=== PATIENT | male | born 1970 | race Caucasian/White ===

== ENCOUNTER 2019-07-31 19:07 | Emergency (ER) | payer MEDICAID ==
[~2019-07-31] VITALS: Ht 172.7 cm; Wt 113.4 kg
== END 2019-07-31 19:10 ==
LOC: ER 19:07
DX: F10.129 Alcohol abuse with intoxication, unspecified (principal)
CPT/HCPCS: 99282

== ENCOUNTER 2020-07-31 19:57 | Emergency (ER) | payer OTHER ==
[~2020-07-31] VITALS: Ht 177.8 cm; Wt 107.0 kg
[2020-07-31] MEDS ORDERED: EPLE25 PO (21:49)
[2020-07-31] MEDS ORDERED: FLUT.05NI (21:49)
[2020-07-31] MEDS ORDERED: FISH OIL 1,2001 EAC1 PO (21:52)
[2020-07-31] MEDS ORDERED: TUMS500 MG PO (22:00)
[2020-08-01 08:42] LABS: BASOPHILS ABSOLUTE AUTO 0.05 K/mm3 (0.00-0.23); BASOPHILS PERCENT AUTO 1 % (0-2); EOSINOPHILS ABSOLUTE AUTO 0.11 K/mm3 (0.00-0.68); EOSINOPHILS PERCENT AUTO 1 % (0-6); Hematocrit 42.9 % (37.0-53.0); Hemoglobin 13.5 g/dL (13.5-17.5); IMMATURE GRAN ABSOLUTE AUTO 0.17 K/mm3 (0.00-0.10); IMMATURE GRAN PERCENT AUTO 2 % (0-1); LYMPHOCYTES ABSOLUTE AUTO 1.57 K/mm3 (0.84-5.20); LYMPHOCYTES PERCENT AUTO 19 % (21-46); MONOCYTES ABSOLUTE AUTO 0.64 K/mm3 (0.16-1.47); MONOCYTES PERCENT AUTO 8 % (4-13); Mean Corpuscular HGB 26.9 pg (26.0-34.0); Mean Corpuscular HGB Conc 31.5 g/dL (31.5-36.5); Mean Corpuscular Volume 86 fL (80-100); Mean Platelet Volume 9.4 fL (9.1-12.4); NEUTROPHILS ABSOLUTE AUTO 5.77 K/mm3 (1.96-9.15); NEUTROPHILS PERCENT AUTO 70 % (41-73); Platelet Count 264 K/mm3 (150-400); RDW Coefficient Variation 15.1 % (11.7-14.2); RDW Standard Deviation 47.3 fL (35.1-46.3); Red Blood Cell Count 5.02 M/mm3 (4.30-5.90); White Blood Cell Count 8.31 K/mm3 (4.00-11.30)
[2020-08-01 09:02] LABS: Alanine Aminotransfer (ALT/SGP 20 U/L (12-78); Albumin, Blood 2.8 g/dL (3.4-5.0); Albumin/Globulin Ratio 0.6 (0.8-1.8); Alk Phos 133 U/L (50-136); Anion Gap 7 mmol/L (6-16); Aspartate Aminotrans (AST/SGOT 26 U/L (12-37); Bilirubin, Total 0.3 mg/dL (0.1-1.0); Blood Urea Nitrogen 9 mg/dL (8-24); Bun/Creatinine Ratio 12.1 (12.0-20.0); CO2, Blood 26 mmol/L (21-32); Calcium, Blood 8.6 mg/dL (8.5-10.1); Chloride, Blood 105 mmol/L (98-108); Creatinine, Blood 0.75 mg/dL (0.60-1.20); Globulin, Blood 4.6 g/dL (2.2-4.0); Glomerular Filtration Rate >60 (60-); Glucose, Blood 147 mg/dL (70-99); Potassium, Blood 4.1 mmol/L (3.5-5.5); Sodium, Blood 138 mmol/L (136-145); Total Protein, Blood 7.4 g/dL (6.4-8.2)
[2020-08-01 11:03] LABS: International Normalized Ratio 0.98; Prothrombin Time Results 10.5 Sec (9.7-11.5)
[2020-08-01] MEDS ORDERED: HYDACE10B PO (13:35)
[2020-08-01] MEDS ORDERED: DOC250 PO (13:35)
[2020-08-01] MEDS ORDERED: XARELTO15 M1 PO (13:35)
== END 2020-08-01 15:13 | disposition home or self-care (01) ==
LOC: ER 19:57
PROVIDERS: Emergency Medicine
DX: I82.220 Acute embolism and thrombosis of inferior vena cava (principal); K66.9 Disorder of peritoneum, unspecified
CPT/HCPCS: 80053; 85025; 85610; 85730; C9113; J1644; J2270; J2405

== ENCOUNTER 2020-09-14 07:51 | Inpatient (IN) | payer OTHER ==
[~2020-09-14] VITALS: Ht 177.8 cm; Wt 107.0 kg
[~2020-09-14 07:51] MED LIST: AMOCLA875 PO; DOC250 PO; EPLE25 PO; FISH OIL 1,2001 EAC1 PO; FLUT.05NI; HYDACE10B PO; TUMS500 MG PO; XARELTO15 M1 PO
[2020-09-14 09:10] LABS: Hematocrit 35.3 % (37.0-53.0); Hemoglobin 11.2 g/dL (13.5-17.5); Mean Corpuscular HGB 26.3 pg (26.0-34.0); Mean Corpuscular HGB Conc 31.7 g/dL (31.5-36.5); Mean Corpuscular Volume 83 fL (80-100); Mean Platelet Volume 9.7 fL (9.1-12.4); Platelet Count 269 K/mm3 (150-400); RDW Coefficient Variation 18.1 % (11.7-14.2); RDW Standard Deviation 53.5 fL (35.1-46.3); Red Blood Cell Count 4.26 M/mm3 (4.30-5.90); White Blood Cell Count 8.89 K/mm3 (4.00-11.30)
[2020-09-14] MEDS ORDERED: AMOCLA875 PO (09:13)
[2020-09-14] MEDS ORDERED: DOC250 (09:13)
[2020-09-14] MEDS ORDERED: MORP15ER PO ×2 (09:13→14:31)
[2020-09-14] MEDS ORDERED: SENNA LAXATIVE8.6 MG (09:13)
[2020-09-14] MEDS ORDERED: XARELTO20 MG PO (09:14)
[2020-09-14] MEDS ORDERED: ZYRTEC10 M2 PO ×2 (09:14→14:49)
[2020-09-14] MEDS ORDERED: MORPHINE SULFAT60 M1 PO (09:14)
[2020-09-14] MEDS ORDERED: LIDO700A20 TOP (09:15)
[2020-09-14] MEDS ORDERED: GABA400 PO ×2 (09:15→14:59)
[2020-09-14] MEDS ORDERED: HYDMOR2 PO ×2 (09:15→14:46)
[2020-09-14] MEDS ORDERED: NICO21TP (09:15)
[2020-09-14] MEDS ORDERED: FLONASE ALLERG9.9 ML (09:16)
[2020-09-14] MEDS ORDERED: EPLE25 PO (09:16)
[2020-09-14] MEDS ORDERED: ONDA4 (09:16)
[2020-09-14 09:26] LABS: Alanine Aminotransfer (ALT/SGP 13 U/L (12-78); Albumin, Blood 2.9 g/dL (3.4-5.0); Albumin/Globulin Ratio 0.8 (0.8-1.8); Alk Phos 74 U/L (50-136); Anion Gap 5 mmol/L (6-16); Aspartate Aminotrans (AST/SGOT 10 U/L (12-37); Bilirubin, Total 0.5 mg/dL (0.1-1.0); Blood Urea Nitrogen 19 mg/dL (8-24); Bun/Creatinine Ratio 24.7 (12.0-20.0); CO2, Blood 33 mmol/L (21-32); Calcium, Blood 8.2 mg/dL (8.5-10.1); Chloride, Blood 98 mmol/L (98-108); Creatinine, Blood 0.77 mg/dL (0.60-1.20); Globulin, Blood 3.6 g/dL (2.2-4.0); Glomerular Filtration Rate >60 (60-); Glucose, Blood 106 mg/dL (70-99); Potassium, Blood 3.5 mmol/L (3.5-5.5); Sodium, Blood 136 mmol/L (136-145); Total Protein, Blood 6.5 g/dL (6.4-8.2)
[2020-09-14 09:45] LABS: BASOPHILS ABSOLUTE MAN 0.08 K/mm3 (0.00-0.23); BASOPHILS PERCENT MAN 1 % (0-2); EOSINOPHILS PERCENT MAN 0 % (0-6); LYMPHOCYTES % ATYPICAL MANUAL 2 % (0-0); LYMPHOCYTES ABSOLUTE MAN 2.04 K/mm3 (0.84-5.20); LYMPHOCYTES PERCENT MAN 21 % (21-46); MONOCYTES ABSOLUTE MAN 0.17 K/mm3 (0.16-1.47); MONOCYTES PERCENT MAN 2 % (4-13); NEUTROPHILS ABSOLUTE MAN 6.57 K/mm3 (1.96-9.15); SEG NEUTROPHILS PERCENT MAN 74 % (41-73); TOTAL CELLS COUNTED 100
[2020-09-14] MEDS ORDERED: MORP60ER PO (14:30)
[2020-09-14] MEDS ORDERED: DOCUZEN 8.6-501 EACH PO (14:49)
[2020-09-14] MEDS ORDERED: MIRALAX17 GM PO (14:50)
[2020-09-14] MEDS ORDERED: BISA10S PO (14:50)
[2020-09-14] MEDS ORDERED: NARCAN4 M1 (14:50)
[2020-09-14] MEDS ORDERED: NICO21TP TOP (14:51)
[2020-09-14] MEDS ORDERED: NICO2 PO (14:51)
[2020-09-14] MEDS ORDERED: MINERAL OIL135 M1 PR (14:51)
[2020-09-14] MEDS ORDERED: MAGCIT300 PO (14:51)
[2020-09-14] MEDS ORDERED: ZOFRAN8 MG PO (14:52)
--- NOTE | 2020-09-14 17:28 | NUR ---
PT IS A 50/M, INDEPENDENT IN THE ROOM. ON ROOM AIR; NO TELE. ALERT AND ORIENTED AND CAME HERE FOR L PHARANGEAL ABSCESS. DR HOOD WHO IS THE ENT ER.DR DRAINED 4ML OF ABSCESS; AND FELT BETTER. PT PMH IS TESTICULAR CANCER; HE HAS SCHEDULED CHEMO FOR TOMORROW BY DR IVY. PT TAKING SEVERAL PAIN MEDS RELATED TO CANCER. BED IS IN THE LOWEST POSITION AND CALL LIGHTS WITHIN REACH.
--- NOTE | 2020-09-14 20:16 | NUR ---
CALL TO HOSPITALIST DR. HYMAN. PT HS MS CONTIN D/C'D WITHOUT EXPLAINATION. PT TAKES THIS DOSE [id number] AT HOME FOR CHRONIC SEVERE PAIN RELATED TO CANCER. DOSE ADDED BACK ONTO PT MED REGIMEN.
--- NOTE | 2020-09-15 04:25 | NUR ---
SHIFT SUMMARY: VSS. AFEB. AAOX4. ABLE TO COMMUNICATE NEEDS. DILAUDID X1 FOR BREAKTHROUGH PAIN TONIGHT. PT STATES THROAT IS ONLY SOMEWHAT SORE, FEELS MUCH BETTER SINCE I & D ON 09/14. PAIN IS IN PT'S "USUAL" LOCATION WHICH IS ALL OVER BODY AND SPECIFICALLY LOWER BACK. APPEARS TO BE SLEEPING WELL THROUGH MUCH OF THE NIGHT. IV ABT INFUSED PER ORDERS. PT PLANS TO HAVE CHEMO PER ROUTINE SCHEDULE TODAY. NO ACUTE CHANGES OVERNIGHT. WILL CONT TO MONITOR.
[2020-09-15 05:16] LABS: BASOPHILS ABSOLUTE AUTO 0.04 K/mm3 (0.00-0.23); BASOPHILS PERCENT AUTO 0 % (0-2); EOSINOPHILS ABSOLUTE AUTO 0.01 K/mm3 (0.00-0.68); EOSINOPHILS PERCENT AUTO 0 % (0-6); Hematocrit 38.2 % (37.0-53.0); Hemoglobin 12.2 g/dL (13.5-17.5); IMMATURE GRAN PERCENT AUTO 2 % (0-1); LYMPHOCYTES ABSOLUTE AUTO 1.23 K/mm3 (0.84-5.20); LYMPHOCYTES PERCENT AUTO 10 % (21-46); MONOCYTES ABSOLUTE AUTO 0.08 K/mm3 (0.16-1.47); MONOCYTES PERCENT AUTO 1 % (4-13); Mean Corpuscular HGB 26.2 pg (26.0-34.0); Mean Corpuscular HGB Conc 31.9 g/dL (31.5-36.5); Mean Corpuscular Volume 82 fL (80-100); Mean Platelet Volume 9.6 fL (9.1-12.4); NEUTROPHILS ABSOLUTE AUTO 10.81 K/mm3 (1.96-9.15); NEUTROPHILS PERCENT AUTO 88 % (41-73); Platelet Count 291 K/mm3 (150-400); RDW Coefficient Variation 18.2 % (11.7-14.2); RDW Standard Deviation 53.2 fL (35.1-46.3); Red Blood Cell Count 4.66 M/mm3 (4.30-5.90); White Blood Cell Count 12.37 K/mm3 (4.00-11.30)
[2020-09-15 05:33] LABS: Alanine Aminotransfer (ALT/SGP 13 U/L (12-78); Albumin, Blood 3.1 g/dL (3.4-5.0); Albumin/Globulin Ratio 0.8 (0.8-1.8); Alk Phos 78 U/L (50-136); Anion Gap 5 mmol/L (6-16); Aspartate Aminotrans (AST/SGOT 3 U/L (12-37); Bilirubin, Total 0.5 mg/dL (0.1-1.0); Blood Urea Nitrogen 25 mg/dL (8-24); Bun/Creatinine Ratio 31.1 (12.0-20.0); CO2, Blood 32 mmol/L (21-32); Calcium, Blood 8.6 mg/dL (8.5-10.1); Chloride, Blood 100 mmol/L (98-108); Globulin, Blood 4.1 g/dL (2.2-4.0); Glomerular Filtration Rate >60 (60-); Glucose, Blood 122 mg/dL (70-99); Potassium, Blood 3.4 mmol/L (3.5-5.5); Sodium, Blood 137 mmol/L (136-145); Total Protein, Blood 7.2 g/dL (6.4-8.2)
--- NOTE | 2020-09-15 13:30 | NUR ---
PATIENT D/C'D TO HOME. DC INSTRUCTION AND EDUCATION DISUCUSSED WITH PATIENT AND COPY PROVIDED. PATIENT DID NOT WANT THE RX FOR BISACODYL SUPPOSITORY SO IT WAS NOT SENT TO HIS PHARMACY. MESSAGE LEFT AT DR. SIMON'S OFFICE TO CALL PATIENT WITH APPT TIME AND DATE. PATIENT DENIES ANY FURTHER QUESITONS AND CONCENRS.
== END 2020-09-15 13:45 | disposition home or self-care (01) | DRG 143 ==
LOC: ER 07:51 → MEDS 15:37 → ENPENDDIS 09-15 12:07 → MEDS 09-15 13:45
PROVIDERS: Physician Assistant; ADMIT Internal Medicine
PROC: 0C9PXZZ Drainage of Tonsils, External Approach (ICD-10-PCS; principal; 2020-09-14)
DX: J39.1 Other abscess of pharynx (principal); I82.220 Acute embolism and thrombosis of inferior vena cava; C62.90 Malignant neoplasm of unspecified testis, unspecified whether descended or undescended; Z87.891 Personal history of nicotine dependence; D64.9 Anemia, unspecified; Z79.01 Long term (current) use of anticoagulants
CPT/HCPCS: 10160; 36415; 70491; 80053; 83605; 83735; 85025; 87070; 87075; 87077; 87081; 87147; 87186; 87205; 87430; 96365-59; 96375-59; 99285-25; J0295; J0696; J1100; J1885; J3010; J7050; Q9967

== ENCOUNTER 2020-09-17 02:56 | Day surgery (SDC) | payer OTHER ==
[~2020-09-17 02:56] MED LIST changes: +BISA10S PO; +DOC250; +DOCUZEN 8.6-501 EACH PO; +FLONASE ALLERG9.9 ML; +GABA400 PO; +HYDMOR2 PO; +LIDO700A20 TOP; +MAGCIT300 PO; +MINERAL OIL135 M1 PR; +MIRALAX17 GM PO; +MORP15ER PO; +MORP60ER PO; +MORPHINE SULFAT60 M1 PO; +NARCAN4 M1; +NICO2 PO; +NICO21TP; +NICO21TP TOP; +ONDA4; +SENNA LAXATIVE8.6 MG; +XARELTO20 MG PO; +ZOFRAN8 MG PO; +ZYRTEC10 M2 PO
== END 2020-09-17 11:40 | disposition home or self-care (01) ==
LOC: ATC 02:56
DX: C62.11 Malignant neoplasm of descended right testis (principal); C77.2 Secondary and unspecified malignant neoplasm of intra-abdominal lymph nodes; Z79.01 Long term (current) use of anticoagulants; Z79.899 Other long term (current) drug therapy
CPT/HCPCS: 99211

== ENCOUNTER 2020-09-23 09:34 | Day surgery (SDC) | payer OTHER | END 2020-09-23 15:35 | disposition home or self-care (01) | LOC: ATC 09:34 | DX: Z48.00 Encounter for change or removal of nonsurgical wound dressing (principal); C62.11 Malignant neoplasm of descended right testis; C77.2 Secondary and unspecified malignant neoplasm of intra-abdominal lymph nodes; Z79.01 Long term (current) use of anticoagulants; Z79.899 Other long term (current) drug therapy; Z91.018 Allergy to other foods | CPT/HCPCS: 99211 ==

== ENCOUNTER 2020-09-29 00:11 | Day surgery (SDC) | payer OTHER ==
[2020-09-29 12:27] LABS: Hematocrit 36.3 % (37.0-53.0); Mean Corpuscular HGB 26.1 pg (26.0-34.0); Mean Corpuscular HGB Conc 30.3 g/dL (31.5-36.5); Mean Corpuscular Volume 86 fL (80-100); Mean Platelet Volume 9.9 fL (9.1-12.4); NRBC ABSOLUTE 0.02 K/mm3 (0.00-0.02); NRBC Auto 0.5 /100 WBC (0.0-0.2); Platelet Count 258 K/mm3 (150-400); RDW Coefficient Variation 19.9 % (11.7-14.2); Red Blood Cell Count 4.22 M/mm3 (4.30-5.90); White Blood Cell Count 4.18 K/mm3 (4.00-11.30)
[2020-09-29 12:43] LABS: Alanine Aminotransfer (ALT/SGP 13 U/L (12-78); Albumin, Blood 2.9 g/dL (3.4-5.0); Albumin/Globulin Ratio 0.8 (0.8-1.8); Alk Phos 63 U/L (50-136); Anion Gap 4 mmol/L (6-16); Aspartate Aminotrans (AST/SGOT 14 U/L (12-37); Bilirubin, Total 0.2 mg/dL (0.1-1.0); Blood Urea Nitrogen 18 mg/dL (8-24); Bun/Creatinine Ratio 20.4 (12.0-20.0); CO2, Blood 29 mmol/L (21-32); Calcium, Blood 8.9 mg/dL (8.5-10.1); Chloride, Blood 108 mmol/L (98-108); Creatinine, Blood 0.88 mg/dL (0.60-1.20); Globulin, Blood 3.8 g/dL (2.2-4.0); Glomerular Filtration Rate >60 (60-); Glucose, Blood 135 mg/dL (70-99); Potassium, Blood 3.9 mmol/L (3.5-5.5); Sodium, Blood 141 mmol/L (136-145); Total Protein, Blood 6.7 g/dL (6.4-8.2)
[2020-09-29 12:59] LABS: BASOPHILS ABSOLUTE MAN 0.08 K/mm3 (0.00-0.23); BASOPHILS PERCENT MAN 2 % (0-2); EOSINOPHILS PERCENT MAN 0 % (0-6); LYMPHOCYTES ABSOLUTE MAN 2.59 K/mm3 (0.84-5.20); LYMPHOCYTES PERCENT MAN 62 % (21-46); METAMYELOCYTE ABSOLUTE MAN 0.16 K/mm3 (0.00-0.00); METAMYELOCYTE PERCENT MAN 4 % (0-0); MONOCYTES ABSOLUTE MAN 0.54 K/mm3 (0.16-1.47); MONOCYTES PERCENT MAN 13 % (4-13); MYELOCYTE ABSOLUTE MAN 0.12 K/mm3 (0.00-0.00); MYELOCYTE PERCENT MAN 3 % (0-0); NEUTROPHILS ABSOLUTE MAN 0.66 K/mm3 (1.96-9.15); SEG NEUTROPHILS PERCENT MAN 16 % (41-73); TOTAL CELLS COUNTED 100
== END 2020-09-29 12:12 | disposition home or self-care (01) ==
LOC: ATC 00:11
PROVIDERS: Internal Medicine Hematology & Oncology
DX: Z45.2 Encounter for adjustment and management of vascular access device (principal); Z48.00 Encounter for change or removal of nonsurgical wound dressing; C62.11 Malignant neoplasm of descended right testis; C77.2 Secondary and unspecified malignant neoplasm of intra-abdominal lymph nodes; C78.6 Secondary malignant neoplasm of retroperitoneum and peritoneum; C78.00 Secondary malignant neoplasm of unspecified lung; Z79.01 Long term (current) use of anticoagulants; Z79.899 Other long term (current) drug therapy
CPT/HCPCS: 36592; 80053; 85025

== ENCOUNTER 2020-10-06 00:07 | Day surgery (SDC) | payer OTHER ==
[2020-10-06 12:39] LABS: Hematocrit 36.3 % (37.0-53.0); Hemoglobin 11.1 g/dL (13.5-17.5); Mean Corpuscular HGB 26.4 pg (26.0-34.0); Mean Corpuscular HGB Conc 30.6 g/dL (31.5-36.5); Mean Corpuscular Volume 86 fL (80-100); Mean Platelet Volume 9.9 fL (9.1-12.4); Platelet Count 221 K/mm3 (150-400); RDW Coefficient Variation 19.7 % (11.7-14.2); RDW Standard Deviation 61.8 fL (35.1-46.3); Red Blood Cell Count 4.21 M/mm3 (4.30-5.90); White Blood Cell Count 6.46 K/mm3 (4.00-11.30)
[2020-10-06 12:47] LABS: Alanine Aminotransfer (ALT/SGP 15 U/L (12-78); Albumin, Blood 3.1 g/dL (3.4-5.0); Albumin/Globulin Ratio 0.8 (0.8-1.8); Alk Phos 65 U/L (50-136); Anion Gap 4 mmol/L (6-16); Aspartate Aminotrans (AST/SGOT 13 U/L (12-37); Bilirubin, Total 0.4 mg/dL (0.1-1.0); Blood Urea Nitrogen 27 mg/dL (8-24); Bun/Creatinine Ratio 30.2 (12.0-20.0); CO2, Blood 30 mmol/L (21-32); Calcium, Blood 8.6 mg/dL (8.5-10.1); Chloride, Blood 103 mmol/L (98-108); Creatinine, Blood 0.89 mg/dL (0.60-1.20); Globulin, Blood 3.7 g/dL (2.2-4.0); Glomerular Filtration Rate >60 (60-); Glucose, Blood 118 mg/dL (70-99); Potassium, Blood 4.4 mmol/L (3.5-5.5); Sodium, Blood 137 mmol/L (136-145); Total Protein, Blood 6.8 g/dL (6.4-8.2)
[2020-10-06 13:35] LABS: BAND PERCENT MAN 2 % (0-8); BASOPHILS PERCENT MAN 0 % (0-2); EOSINOPHILS PERCENT MAN 0 % (0-6); LYMPHOCYTES ABSOLUTE MAN 1.03 K/mm3 (0.84-5.20); LYMPHOCYTES PERCENT MAN 16 % (21-46); MONOCYTES ABSOLUTE MAN 0.06 K/mm3 (0.16-1.47); MONOCYTES PERCENT MAN 1 % (4-13); NEUTROPHILS ABSOLUTE MAN 5.36 K/mm3 (1.96-9.15); SEG NEUTROPHILS PERCENT MAN 81 % (41-73); TOTAL CELLS COUNTED 100
== END 2020-10-06 12:05 | disposition home or self-care (01) ==
LOC: ATC 00:07
PROVIDERS: Internal Medicine Hematology & Oncology
DX: Z48.00 Encounter for change or removal of nonsurgical wound dressing (principal); Z45.2 Encounter for adjustment and management of vascular access device; C62.11 Malignant neoplasm of descended right testis; C78.6 Secondary malignant neoplasm of retroperitoneum and peritoneum; C77.2 Secondary and unspecified malignant neoplasm of intra-abdominal lymph nodes; C78.00 Secondary malignant neoplasm of unspecified lung; Z79.01 Long term (current) use of anticoagulants; Z79.899 Other long term (current) drug therapy; Z87.891 Personal history of nicotine dependence; Z91.018 Allergy to other foods
CPT/HCPCS: 36592; 80053; 85025

== ENCOUNTER 2020-10-13 00:05 | Day surgery (SDC) | payer OTHER | END 2020-10-13 11:58 | disposition home or self-care (01) | LOC: ATC 00:05 | DX: Z48.00 Encounter for change or removal of nonsurgical wound dressing (principal); C62.11 Malignant neoplasm of descended right testis; C78.6 Secondary malignant neoplasm of retroperitoneum and peritoneum; C77.2 Secondary and unspecified malignant neoplasm of intra-abdominal lymph nodes; C78.00 Secondary malignant neoplasm of unspecified lung; Z87.891 Personal history of nicotine dependence; Z79.899 Other long term (current) drug therapy; Z79.01 Long term (current) use of anticoagulants; Z91.018 Allergy to other foods | CPT/HCPCS: 99211 ==

== ENCOUNTER 2020-10-24 10:30 | Inpatient (IN) | payer OTHER ==
[~2020-10-24] VITALS: Ht 177.8 cm; Wt 97.8 kg
[2020-10-24 11:53] LABS: Alanine Aminotransfer (ALT/SGP 9 U/L (12-78); Albumin, Blood 2.2 g/dL (3.4-5.0); Albumin/Globulin Ratio 0.5 (0.8-1.8); Alk Phos 70 U/L (50-136); Anion Gap 5 mmol/L (6-16); Aspartate Aminotrans (AST/SGOT 11 U/L (12-37); Bilirubin, Total 0.5 mg/dL (0.1-1.0); Blood Urea Nitrogen 7 mg/dL (8-24); Bun/Creatinine Ratio 7.8 (12.0-20.0); CO2, Blood 30 mmol/L (21-32); Calcium, Blood 8.7 mg/dL (8.5-10.1); Chloride, Blood 104 mmol/L (98-108); Creatinine, Blood 0.89 mg/dL (0.60-1.20); Globulin, Blood 4.7 g/dL (2.2-4.0); Glomerular Filtration Rate >60 (60-); Glucose, Blood 129 mg/dL (70-99); Potassium, Blood 3.4 mmol/L (3.5-5.5); Sodium, Blood 139 mmol/L (136-145); Total Protein, Blood 6.9 g/dL (6.4-8.2)
[2020-10-24 11:54] LABS: BASOPHILS ABSOLUTE AUTO 0.05 K/mm3 (0.00-0.23); BASOPHILS PERCENT AUTO 0 % (0-2); EOSINOPHILS ABSOLUTE AUTO 0.15 K/mm3 (0.00-0.68); EOSINOPHILS PERCENT AUTO 1 % (0-6); Hematocrit 19.3 % (37.0-53.0); Hemoglobin 6.1 g/dL (13.5-17.5); IMMATURE GRAN ABSOLUTE AUTO 0.59 K/mm3 (0.00-0.10); IMMATURE GRAN PERCENT AUTO 5 % (0-1); LYMPHOCYTES PERCENT AUTO 12 % (21-46); MONOCYTES ABSOLUTE AUTO 1.37 K/mm3 (0.16-1.47); MONOCYTES PERCENT AUTO 12 % (4-13); Mean Corpuscular HGB 26.4 pg (26.0-34.0); Mean Corpuscular HGB Conc 31.6 g/dL (31.5-36.5); Mean Corpuscular Volume 84 fL (80-100); Mean Platelet Volume 9.6 fL (9.1-12.4); NEUTROPHILS ABSOLUTE AUTO 7.78 K/mm3 (1.96-9.15); NEUTROPHILS PERCENT AUTO 69 % (41-73); NRBC ABSOLUTE 0.04 K/mm3 (0.00-0.02); NRBC Auto 0.4 /100 WBC (0.0-0.2); Platelet Count 292 K/mm3 (150-400); RDW Coefficient Variation 19.2 % (11.7-14.2); RDW Standard Deviation 59.2 fL (35.1-46.3); Red Blood Cell Count 2.31 M/mm3 (4.30-5.90); White Blood Cell Count 11.24 K/mm3 (4.00-11.30)
[2020-10-24 12:20] LABS: Influenza A, PCR Negative (NEGATIVE); Influenza B, PCR Negative (NEGATIVE); Resp Syncytial Virus, PCR Negative (NEGATIVE); SARS-Cov-2 (COVID-19) PCR, MMC Negative (NEGATIVE)
[2020-10-24] MEDS ORDERED: OMEP20ER (17:05)
--- NOTE | 2020-10-24 20:11 | NUR ---
PT ADMITTED FROM ED 1510, A/O X4, AMBULATED TO BED- IRRITABLE, TOOK OFF O2 AND WENT TO THE BATHROOM AFTER RN LEFT ROOM TO GET SOMETHING. MOM WAS IN THE ROOM AT THE TIME. PT CAME BACK TO BED SEVERELY DYSPNIC, TURNED OXYMIZER UP FROM 8L TO 15L TEMPERARY, SATS SEEN LOW 79%, TOOK 10 MIN TO COME BACK INTO LOW 90'S, LOWERED O2 BACK DOWN TO 10L OXYMIZER. PT SEELING BETTER, LUNGS CRACKEL IN BASES AND TIGHT. CALLED RT TO SET UP CONT PULSE OX. VSS, WILL CONT TO [facility] BLOOD TX WHILE GATHERING HISTORY.
--- NOTE | 2020-10-24 20:15 | NUR ---
SUMMARY- PT A/O X3, USES CALL LIGHT. USING URINAL. TOLERATING FOOD AND FLUIDS. MEDICATED WITH DILAUDID X1 1800 FOR BACK PAIN 04/02 WITH STATED RELEIF. I UNIT OF PRBC'S COMPLETE. PT GETS SEVERE SOB WITH EXERTION AND DESATS, O2 DEMAND INCREASES FROM 10-15L AND TAKES 10 MIN TO RECOVER FROM EPISODES. VSS, TEMP 99.9 AFTER BLOOD. REPORTED ALL TO TUYET PIKE RN.
--- NOTE | 2020-10-24 20:32 | NUR ---
1950 REPORT RECEIVED FROM MONICA GERARD; PT O2 SAT 79% ON 15L OXIMIZER; RT AT SIDE; PT VERY ANXIOUS AND UNABLE TO CATCH BREATH WHILE SITTING HIGH FOWLERS. 2009 GABRIEL OLIVARES RN AT BEDSIDE WITH ORDERS TO MOVE PT TO ICU; GABRIEL WILL INPUT TRANSFER ORDERS. 2034 REPORT GIVEN TO MONICA SANFORD IN ICU; PT TO BE MOVED TO ICU-3.
[2020-10-24 22:39] LABS: Hematocrit 27.9 % (37.0-53.0); Hemoglobin 8.9 g/dL (13.5-17.5)
--- NOTE | 2020-10-24 22:51 | NUR ---
TRANSFER NOTE PT TX FROM MED FLOOR TO ICU FOR WORSENING DYSPNEA. PT ABLE TO STAND AND TRANSFER TO ICU BED, BECOMES DYSPNEIC WITH MINIMAL EXERTION, SATS DECREASED TO LOW 80'S WITH EXERTION. CURRENTLY ON ISOLATION FOR COVID PRECAUTIONS, PENDING RESULTS FROM SENDOUT. RT IN ROOM UPON PT ARRIVAL, PLACED ON AIRVO, PT TOLERATING WELL C O2 SATS >90%. LS DIMINISHED T/O. NSR ON THE MONITOR C OCCASIONAL PVC'S. PT ORIENTED TO ROOM, NEEDS ADDRESSED. NO COMPLAINTS AT THIS TIME. WILL CONTINUE TO MONITOR AND REASSESS.
[2020-10-25 04:47] LABS: BASOPHILS ABSOLUTE AUTO 0.08 K/mm3 (0.00-0.23); BASOPHILS PERCENT AUTO 1 % (0-2); EOSINOPHILS ABSOLUTE AUTO 0.17 K/mm3 (0.00-0.68); EOSINOPHILS PERCENT AUTO 2 % (0-6); Hematocrit 26.8 % (37.0-53.0); Hemoglobin 8.6 g/dL (13.5-17.5); IMMATURE GRAN ABSOLUTE AUTO 0.39 K/mm3 (0.00-0.10); IMMATURE GRAN PERCENT AUTO 4 % (0-1); LYMPHOCYTES ABSOLUTE AUTO 1.47 K/mm3 (0.84-5.20); LYMPHOCYTES PERCENT AUTO 16 % (21-46); MONOCYTES ABSOLUTE AUTO 1.16 K/mm3 (0.16-1.47); MONOCYTES PERCENT AUTO 13 % (4-13); Mean Corpuscular HGB 26.8 pg (26.0-34.0); Mean Corpuscular HGB Conc 32.1 g/dL (31.5-36.5); Mean Corpuscular Volume 84 fL (80-100); Mean Platelet Volume 9.8 fL (9.1-12.4); NEUTROPHILS ABSOLUTE AUTO 5.88 K/mm3 (1.96-9.15); NEUTROPHILS PERCENT AUTO 64 % (41-73); NRBC ABSOLUTE 0.05 K/mm3 (0.00-0.02); NRBC Auto 0.5 /100 WBC (0.0-0.2); Platelet Count 191 K/mm3 (150-400); RDW Coefficient Variation 18.6 % (11.7-14.2); RDW Standard Deviation 55.8 fL (35.1-46.3); Red Blood Cell Count 3.21 M/mm3 (4.30-5.90); White Blood Cell Count 9.15 K/mm3 (4.00-11.30)
[2020-10-25 05:06] LABS: Percent Saturation 9.8 % (20.0-50.0)
[2020-10-25 05:07] LABS: Alanine Aminotransfer (ALT/SGP 7 U/L (12-78); Albumin, Blood 1.9 g/dL (3.4-5.0); Albumin/Globulin Ratio 0.4 (0.8-1.8); Alk Phos 62 U/L (50-136); Anion Gap 3 mmol/L (6-16); Aspartate Aminotrans (AST/SGOT 14 U/L (12-37); Bilirubin, Total 0.5 mg/dL (0.1-1.0); Blood Urea Nitrogen 10 mg/dL (8-24); Bun/Creatinine Ratio 9.8 (12.0-20.0); CO2, Blood 31 mmol/L (21-32); Calcium, Blood 8.6 mg/dL (8.5-10.1); Chloride, Blood 106 mmol/L (98-108); Creatinine, Blood 1.02 mg/dL (0.60-1.20); Globulin, Blood 4.3 g/dL (2.2-4.0); Glomerular Filtration Rate >60 (60-); Glucose, Blood 100 mg/dL (70-99); Magnesium, Blood 1.8 mg/dL (1.6-2.4); Sodium, Blood 140 mmol/L (136-145); Total Protein, Blood 6.2 g/dL (6.4-8.2)
--- NOTE | 2020-10-25 05:17 | NUR ---
SHIFT SUMMARY PT REMAINS ALERT AND ORIENTED. TOLERATING AIRVO WELL @ 50L/ 70% c O2 SATS >90%. PT FREQUENTLY REPOSITIONS SELF IN BED. STATES HE IS FEELING BETTER NOW THAT HE IS NO LONGER SHOB AND IS ABLE TO TOLERATE THE AIRVO. PT ABLE TO USE THE URINAL WITHOUT ASSISTANCE. CONTINUES TO HAVE PVC'S/ BIGEMINY. NO C/O CP. PT CURRENTLY HAS NO COMPLAINTS. PT NOTIFIED MOTHER OF TRANSFER TO ICU, STATED NO NEED FOR ME TO CALL AND MAKE HER WORRY. WILL CONTINUE TO MONITOR.
--- NOTE | 2020-10-25 10:06 | NUR ---
AM NOTE... ASSUMED CARE OF PT APROX 0700, PT IS A&Ox4 AND WAS ADMITTED FOR PNA PT IS ON THE AIRVO AT 50L AND 73% FIO2. PT'S O2 SATS WERE >90% BUT PT WOULD DESAT QUICKLY DOWN TO THE LOW 80'S% WITH ACTIVITY AND COUGHING, AT AROUND 0900 PT DESATTED AND WAS UNABLE TO RECOVER HIS FIO2 WAS INCREASED FROM 73% TO 85% AND HIS O2 SATS WERE AT 91%. PT'S OTHER VS STABLE PT IS IN NSR W/OCC BIGEMINAL PVCS. PT DENIES ANY CHEST PAIN/PRESSURE OR N/V. NO EDEMA NOTED ON ASSESSMENT. BT PRESENT AND HYPOACTIVE, ABD IS TENDER TO PALP PER THE PT. CALL LIGHT IN REACH WILL CONTINUE TO MONITOR.
--- NOTE | 2020-10-25 10:56 | NUR ---
PT UPDATE... THIS RN IN THE ROOM TO GIVE MEDICATIONS, PT'S O2 SATS WERE DROPPING BUT THE WAVE FORM WAS NOT GOOD, THE PROBE WAS PLACED ON THE PT'S TOE WITH A GOOD WAVE FORM. PT'S O2 SATS WERE IN THE LOW TO MID 80'S, THE FIO2 OF THE AIRVO WAS INCREASED FROM 75% FIO2 TO 90%, CURRENTLY THE PT'S O2 SATS ARE BETWEEN 89-94% DR. RUSS WAS CONSULTED AND MADE AWARE OF THE PT. WILL CONTINUE TO MONITOR.
--- NOTE | 2020-10-25 14:39 | NUR ---
PT UPDATE... AT APROX 1315 PT WAS EATING LUNCH, HIS O2 SATS DROPPED SIGNIFICANTLY DOWN TO THE 70'S. PT WAS STOPPED FROM FINISHING EATING AND INSTRUCTED TO TAKE DEEP BREATHS IN THROUGH HIS NOSE AND OUT OF HIS MOUTH, THE AIRVO WAS INCREASED TO 95% FIO2 AND HIS O2 SATS STILL DID NOT RECOVER. RT WAS CALLED AND A BIPAP WAS BROUGHT INTO THE ROOM PT WAS PLACED ON THE CPAP SETTINGS AT 12 AND 85% FIO2. HIS O2 SATS QUICKLY IMPROVED AND ARE STAYING >90%. WILL CONTINUE TO MONITOR.
--- NOTE | 2020-10-25 15:26 | NUR ---
PT UPDATE.... PT IS NOW BACK ON THE AIRVO AT 50L AND 85% FIO2 KEEPING HIS O2 SATS>90% PT REQUESTED TO TAKE THE CPAP MASK OFF FOR A BREAK. PT WAS MEDICATED FOR PAIN PER EMAR. WILL CONTINUE TO MONITOR.
[2020-10-25 16:40] LABS: Source, Urine Clean Catch
[2020-10-25 16:42] LABS: Appearance, Urine Clear (Clear); Bilirubin, Urine Neg (Neg); Blood, Urine 1+ (Neg); Color, Urine Yellow (P-Yellow); Glucose Qualitative, Urine Neg (Neg); Ketones, Urine Neg (Neg); Leukocyte Esterase, Urine Neg (Neg); Nitrite, Urine Neg (Neg); Protein, Urine 1+ (Neg); Specific Gravity, Urine 1.015 (1.003-1.022); Urobilinogen, Urine NORM (Normal)
[2020-10-25 16:59] LABS: Bacteria Few /hpf; Mucus Light (0-Heavy); Red Blood Cells, Urine Rare /hpf (0-2); Squamous Epithelial Cells Rare /hpf (Few); White Blood Cells, Urine Rare /hpf (0-5)
--- NOTE | 2020-10-25 17:54 | NUR ---
SHIFT SUMMARY.... AT 1730 THIS RN WAS IN THE PT'S ROOM GIVING 1700 MEDS AND DINNER, THE PT WAS STABLE ON THE AIRVO AT 50L AND 85% FIO2 WITH O2 SATS>90% UNTIL HE TURNED HIMSELF OVER IN THE BED AND PUSHED HIMSELF UP THE BED TO THE SITTING POSITION, THIS MADE HIS SATS DROP DOWN TO THE 70'S AND HE WAS UNABLE TO RECOVER ON THE AIRVO, THE CPAP WAS PUT ON AND WAS SET TO 12 AND 100% FIO2, PT WAS STILL UNABLE TO RECOVER, RT WAS CALLED AND THE CPAP SETTINGS WERE CHANGED TO BIPAP AT 14/8 AND 100%. PT HAS BEEN ON THIS SETTING ARPROX 10 MINS WITH O2 SATS BETWEEN 82%-92%. DR. RUSS UPDATED AND ORDER FOR PRECEDEX WAS OBTAINED. L/S DIM T/O OTHER VS STABLE AT THIS TIME. WILL CONTINUE TO MONITOR.
--- NOTE | 2020-10-25 18:33 | NUR ---
PT UPDATE... RT WAS CALLED BACK IN THE ROOM D/T THE PT'S O2 SATS STILL BEING BELOW 88% THE PRECEDEX WAS STARTED AND 50 MCG OF FENTANYL WAS GIVEN. THE RT CHANGED THE BIPAP SETTINGS TO 12/14 AND 100% FIO2 CURRENTLY THE PT'S O2 SATS ARE 92%. THE PT IS ON 0.3MCG OF PRECEDEX HE IS DROWSY BUT RESPONDS TO VERBAL STIMULI.
[2020-10-25 19:37] LABS: Source, Urine Catheter
[2020-10-25 19:38] LABS: PCO2 Arterial 43.8 mmHg (35-45); PO2 Arterial 66.7 mmHg (80-100); pH Blood Arterial 7.42 (7.35-7.45)
[2020-10-25 19:43] LABS: Appearance, Urine Clear (Clear); Bilirubin, Urine Neg (Neg); Blood, Urine 1+ (Neg); Color, Urine Yellow (P-Yellow); Glucose Qualitative, Urine Neg (Neg); Ketones, Urine Neg (Neg); Leukocyte Esterase, Urine Neg (Neg); Nitrite, Urine Neg (Neg); Protein, Urine 1+ (Neg); Specific Gravity, Urine 1.015 (1.003-1.022); Urobilinogen, Urine NORM (Normal)
--- NOTE | 2020-10-25 19:45 | NUR ---
SHIFT ASSESSMENT BEDSIDE REPORT RECV'D FROM MARJORIE RN @ 1900. PT ALERT AND ORIENTED, DIFFICULT TO UNDERSTAND DUE TO CPAP AND THIS NURSES PAPR. FOLLOWING ALL COMMANDS. TOLERATING CPAP FAIRLY WELL c O2 SATS > 88%. CPAP SETTINGS ARE BEING TITRATED. NS/SINUS KILLIAN ON THE LEGAL ADVISER. PT DENIES ANY CP. WILLOUGHBY CATH PATENT, DRAINING YELLOW URINE. PRECEDEX GTT @ 0.5, NS TKO. DISCUSSING RESPIRATORY CONCERNS WITH RT AND DR RUSS, WILL CONTINUE TO MONITOR CLOSELY.
[2020-10-25 19:53] LABS: White Blood Cells, Urine Not Seen /hpf (0-5)
[2020-10-25 19:54] LABS: Bacteria Rare /hpf; Granular Casts 0-2 /lpf (0); Hyaline Casts 0-2 /lpf (0-2); Mucus Mod (0-Heavy); Red Blood Cells, Urine Not Seen /hpf (0-2); Squamous Epithelial Cells Not Seen /hpf (Few)
--- NOTE | 2020-10-25 20:45 | NUR ---
UPDATE NOTIFIED DR RUSS OF ABG RESULTS, DISCUSSED INABLITITY TO TAKE PO MEDICATIONS AND PTS HYPOTENSION RELATING TO PAIN MANAGEMENT. FLUID BOLUS AND CONTINOUS NS INFUSION ORDERED. WILL MONITOR PT TOLERANCE.
--- NOTE | 2020-10-26 00:46 | NUR ---
UPDATE PT CONTINUES TO TOLERATE THE CPAP WHILE SLEEPING c O2 SATS >90%. BP STABLE AFTER FLUID BOLUS. CURRENTLY IN SINUS KILLIAN c OCCASIONAL PVC'S, TITRATING PRECEDEX, SEE FLOW SHEET. PT ABLE TO ADJUST SELF IN BED WHEN NEEDED, BUT CAUTIOUS DUE TO SHOB. WILL CONTINUE TO MONITOR.
--- NOTE | 2020-10-26 02:03 | NUR ---
UPDATE THIS NURSE WAS NOTIFIED FROM TEREZA ANDERSON WHILE ON MY LUNCH BREAK THAT PT WAS DESATURATING AND BECOMING TACHYPNEIC WITH A RR UP TO 60. PT TOLD NURSE HE WAS IN PAIN. UPON ARRIVAL TO PTS ROOM, PT WAS SITTING UPRIGHT WITH RR FROM 30-50 c O2 SATS IN THE MID TO HIGH 80'S. PRN FENTANYL GIVEN AND PRECEDEX TITRATED. PTS RR SLOWY DECREASED WITH MEDICATON ADMIN. PT ALSO ASKING "WHAT IS GOING ON, IT'S SO HARD TO BREATH". PT UPDATED ON HIS CONDITON AND COACHED THROUGH RELAXATION TECHNIQUES. PT FEELS LIKE THE "MACHINE" IS NOT ALLOWING HIM TO TAKE DEEP BREATHS. I EXPLAINED TO PT THE NEED FOR CPAP, PT UNDERSTANDING AND REALIZES HE BECOMES ANXIOUS AND PAINFUL AT TIMES. PT CURRENTLY HAS AN O2 SAT OF 92% c RR OF 17. WILL CONTINUE TO MONITOR RR AND PAIN.
--- NOTE | 2020-10-26 02:58 | NUR ---
CONTINUATION OF PREVIOUS NOTE PT EVENTUALLY WAS ABLE TO CALM DOWN ENOUGH TO CATCH HIS BREATH. ONCE HIS RR AND O2 SATS NORMALIZED, WE DISCUSSED MORE THOROUGHLY THE PTS CONDITION AND THE TREATMENT WELL THE THEORY/ SCIENCE BEHIND THE CPAP AND MEDICATIONS HE IS RECEIVING. PT STATED HE GREATLY APPRECIATED THE THEORY/SCIENCE BEING EXPLAINED TO HIM. PT STATED "MY BRAIN WORKS DIFFERENTLY THAN MOST, IF I CAN HEAR THE SCIENCE BEHIND A TREATMENT, I CAN CONTROL MY ANXIETY". WE DISCUSSED WHAT JUST HAPPENED. PT STATED HE WOKE SCARED, WORRIED, UNSURE OF WHAT IS GOING ON. 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 PT NOW CALM, TOLERATING THE MEDICATIONS AND CPAP, STATES "I'M LOOKING FORWARD TO GETTING THE AIRVO BACK ON". WILL CONTINUE TO MONITOR.
[2020-10-26 04:57] LABS: BASOPHILS ABSOLUTE AUTO 0.04 K/mm3 (0.00-0.23); BASOPHILS PERCENT AUTO 0 % (0-2); EOSINOPHILS PERCENT AUTO 0 % (0-6); Hematocrit 27.5 % (37.0-53.0); Hemoglobin 8.6 g/dL (13.5-17.5); IMMATURE GRAN ABSOLUTE AUTO 0.32 K/mm3 (0.00-0.10); IMMATURE GRAN PERCENT AUTO 2 % (0-1); LYMPHOCYTES ABSOLUTE AUTO 1.05 K/mm3 (0.84-5.20); LYMPHOCYTES PERCENT AUTO 7 % (21-46); MONOCYTES ABSOLUTE AUTO 0.99 K/mm3 (0.16-1.47); MONOCYTES PERCENT AUTO 7 % (4-13); Mean Corpuscular HGB 26.1 pg (26.0-34.0); Mean Corpuscular HGB Conc 31.3 g/dL (31.5-36.5); Mean Corpuscular Volume 83 fL (80-100); Mean Platelet Volume 9.9 fL (9.1-12.4); NEUTROPHILS ABSOLUTE AUTO 12.46 K/mm3 (1.96-9.15); NEUTROPHILS PERCENT AUTO 84 % (41-73); Platelet Count 185 K/mm3 (150-400); RDW Coefficient Variation 18.6 % (11.7-14.2); RDW Standard Deviation 56.5 fL (35.1-46.3); White Blood Cell Count 14.86 K/mm3 (4.00-11.30)
--- NOTE | 2020-10-26 05:00 | NUR ---
UPDATE PT CONTINUED TO TOLERATE CPAP AND MEDICATIONS UNTIL AM CHEST X-RAY. PT BEGAN HAVING A COUGHING FIT WHICH LASTED APPROXIMATELY 30 MINUTES WITH O2 SATS DROPPING TO THE LOW 80'S. THIS NURSE SPENT APROXIMATLEY AN HOUR WITH THE PT AFTER THE X-RAY CALMING/ TALKING TO HIM. PT SATS IMPROVED TO THE LOW 90'S ONCE STIMULATION WAS DECREASED. WILL CONTINUE TO MONITOR.
[2020-10-26 05:17] LABS: Vancomycin, Trough 16.1 ug/mL (5.0-10.0)
[2020-10-26 05:47] LABS: Alanine Aminotransfer (ALT/SGP 9 U/L (12-78); Albumin, Blood 1.9 g/dL (3.4-5.0); Albumin/Globulin Ratio 0.4 (0.8-1.8); Alk Phos 67 U/L (50-136); Anion Gap 9 mmol/L (6-16); Aspartate Aminotrans (AST/SGOT 19 U/L (12-37); Bilirubin, Total 0.5 mg/dL (0.1-1.0); Blood Urea Nitrogen 15 mg/dL (8-24); Bun/Creatinine Ratio 16.4 (12.0-20.0); CO2, Blood 25 mmol/L (21-32); Calcium, Blood 8.4 mg/dL (8.5-10.1); Chloride, Blood 107 mmol/L (98-108); Creatinine, Blood 0.91 mg/dL (0.60-1.20); Globulin, Blood 4.8 g/dL (2.2-4.0); Glomerular Filtration Rate >60 (60-); Glucose, Blood 123 mg/dL (70-99); Magnesium, Blood 1.8 mg/dL (1.6-2.4); Phosphorus, Blood 4.1 mg/dL (2.5-4.9); Sodium, Blood 141 mmol/L (136-145); Total Protein, Blood 6.7 g/dL (6.4-8.2)
--- NOTE | 2020-10-26 06:12 | NUR ---
SHIFT SUMMARY NO SIGNIFICANT CHANGES FROM LAST UPDATE. PT RESTING AFTER X-RAY. PRECEDEX CONTINUES AT 0.5 MCG/KG/HR. MEDICATING WITH PRN FENTANYL Q1.5-2HRS FOR PAIN AND ANXIETY. CPAP @ 16/ 100% c O2 SAT OF 97/98% WHILE PT IS SEDATE. WILL CONTINUE TO MONITOR. REPORT TO ONCOMING NURSE.
--- NOTE | 2020-10-26 07:45 | NUR ---
PT INITIATED CALL SYSTEM. PT CRYING OUT-WRIPPED OFF BIPAP MASK, BP CUFF, AND SPO2 MONITOR. PT STATES THAT HE AWAKENED AND FELT LIKE HE WAS "DROWING" WITH THE BIPAP MASK ON. PT REPORTS 91/0 BACK AND ABDOMINAL PAIN. MED WITH FENTANYL 50 MCG IVP AND TITRATED PRECEDEX UP TO 0.7 MCG. LUNGS TIGHT AND DIMINISHED WITH A FEW COARSE RHONCHI TO THE LEFT. SATS 83-85% ON FIO2 100% RR 44 UTILIZING ACCESSORY MUSCLES TO BREATH. DR RUSS CONTACTED AND UPDATED TO PT CURRENT STATUS AND INCREASED RESPIRATORY DISTRESS. PT AWARE THAT INTUBATION IS IMMINENT AND HE GAVE VERBAL CONSENT. PT DID REQUEST THAT HIS MOTHER BE CONTACTED-[employer] DID NOTIFY HER.
--- NOTE | 2020-10-26 08:48 | NUR ---
DR. RUSS ARRIVED AT BEDSIDE. PT CONTINUES IN RESPIRATORY DISTRESS. RSI DONE. DR. RUSS MED PT WITH PROPOFOL 5 CC IVP @0848-WITH MININAL EFFECT-PT GIVEN AN ADDITIONAL 5CC OF PROPOFOL IV BY DR. RUSS.-PT BEING BAGGED AND APPEARED TO RELAX-HOWEVER, WHEN DR. RUSS ATTEMPTED PLACE LARYNGOSCOPE/GLIDESCOPE-PT BECAME VERY AGGITATED AND STARTED TO GAG. PT GIVEN SUCCS 100MG IVP @0851. #8.0 ETT PLACED-27 @ TEETH. ETT TO VENT: AC18/TV450/PEEP10/FIO2 100% PROPOFOL DRIP INITIATED @ 25 MCG/KG/MIN. SBP TRENDING 80'S-NS 1000CC BOLUS INITIATED @0847.PT VERY AGITATED AND DIFFICULT TO VENTILATE-SATS TO 70'S AT TIMES. MED WITH FENTANYL 100MCG IVP X 1 @0920 AND 0930 FOR PAIN AND SEDATION ADJUNCT-PROPOFOL DRIP TITRATED UP TO 100 MCG/KG/MIN, YET PT STILL AGITATED AND FIGHTING VENTILATOR. PT MED WITH ATIVAN 2 MG IVP @ 0907 AND 0918 SEDATION ADJUNCT. OGT PLACED-CXR DONE TO CONFIRM BOTH ETT AND OGT PLACEMENT. XARELTO 20 MG GIVEN VIA OGT PER DR. RUSS VERBAL ORDER.
--- NOTE | 2020-10-26 09:49 | NUR ---
MAP TRENDING LESS THAN 60. LEVOPHED DRIP INITIATED. ADDITIONAL 1 LITER LR TO BE GIVEN AFTER CURRENT BOLUS COMPLETED. ABG DRAWN.
[2020-10-26 09:57] LABS: PCO2 Arterial 44.8 mmHg (35-45); PO2 Arterial 60.7 mmHg (80-100); pH Blood Arterial 7.35 (7.35-7.45)
--- NOTE | 2020-10-26 10:12 | NUR ---
LEVOPHED DRIP @ 5 MCG/MIN-MAP 60-65. PT MED WITH ATIVAN 4 MG IVP X1 AND TITRATED PROPOFOL DRIP DOWN TO 50 MCG/KG/MIN. FENTANYL CONTINUOUS @ 25 MCG/HR. PT LESS RESTLESS AND TOLERATING MECHANICAL VENTILATION WELL. PEEP INCREASED TO 15@1005 BY RT.
--- NOTE | 2020-10-26 10:27 | NUR ---
PT RESTING QUIETLY ON VENT-SATS 100%-FIO2 TITRATED DOWN TO 85%. MAP TRENDING 70'S-LEVOPHED DRIP TITRATED DOWN TO 3 MCG/MIN.
--- NOTE | 2020-10-26 12:00 | NUR ---
CARE ASSUMED W/FROM MONICA COLEMAN. PT IS NOW RESTING ON THE VENTILATOR, AC 18/450/15/65. PROPOFOL IS INFUSING AT 50 MG, NOREPINEPHRINE AT 3, FENTANYL ROUTE PROCESS ADMINISTRATOR CONTINUOUS INFUSION @ 25 MCG/HR. PERIPHERAL IV STARTED IN AP, MAINTENANCE IV AND FENTANYL INFUSING THERE. PT IS VERY SEDATED, ORAL CARE COMPLETED WITHOUT INCIDENT, WRISTS RESTRAINED PER PROTOCOL. TURNED TO RIGHT SIDE, WITH PILLLOWS UNDER LEFT.
--- NOTE | 2020-10-26 17:36 | NUR ---
SOLE BEGAN THE SHIFT AWAKING IN A FRIGHT,AGREEING TO BE INTUBATED (SEE NOTES). SINCE INTUBATION HE HAS BEEN SEDATED ON PROPOFOL AT 50MCG/KG/HR, HE WAS ON LEVOPHED BRIEFLY UP TO 5, TITRATED DOWN TO 2, BEEN ON STANDBY SINCE EARLY AFTERNOON. HE IS ON THE FILTERATION OPERATOR CONTINUOUS INFUSION OF FENTANYL 25MCG/HR WITH A KVO INFUSION IN THE LEFT UPPER ARM. THE PICC LINE HAS THE PROPOFOL AND MAINTENANCE FLUIDS FOR THE ANTIBIOTICS WELL. HE HAS BEEN TURNED AND REPOSITIONED Q2H, TOLERATED WITH A DOSE OF ATIVAN BEFORE, SOME COUGHING WHEN TURNED, MINIMAL RETURN. TUBE FEEDING IS CONTINUOUS AT 40ML/HR WITH 30ML FLUSHES Q4HR. RESIDUAL WAS 60, HAD BEEN ON 20ML/HR, TURNED UP AT 1700. WILLOUGHBY WITH GOOD OUTPUT AFTER FLUID BOLUSES. RESTRAINTS REMAIN ON FOR SAFETY PER PROTOCOL.
--- NOTE | 2020-10-26 20:00 | NUR ---
SHIFT ASSESSMENT ASSUMED CARE OF PT @ 1900, REPORT RECV'D FROM LEDY ANDERSON. PT INTUBATED AND SEDATED. PROPOFOL @ 50MCG/KG/MIN, FENTANYL SUPERVISOR TITLE @ 25MCG/HR. VENT SETTINGS: AC-18/450/15/55% c O2 SAT >95%. PT TOLERATING THE VENT WELL, APPEARS TO BE ADEQUATELY SEDATED. PICC LINE IN KASSANDRA AND IV AP PATENT, INFUSING. NS ON THE HAND HOSE CUTTER. BP STABLE. TUBE FEED @ GOAL RATE. WILLOUGHBY CATH PATENT, DRAINING CLEAR YELLOW URINE. WILL CONTINUE TO MONITOR.
[2020-10-27 03:47] LABS: BASOPHILS ABSOLUTE AUTO 0.02 K/mm3 (0.00-0.23); BASOPHILS PERCENT AUTO 0 % (0-2); EOSINOPHILS ABSOLUTE AUTO 0.01 K/mm3 (0.00-0.68); EOSINOPHILS PERCENT AUTO 0 % (0-6); Hematocrit 23.5 % (37.0-53.0); Hemoglobin 7.3 g/dL (13.5-17.5); IMMATURE GRAN ABSOLUTE AUTO 0.28 K/mm3 (0.00-0.10); IMMATURE GRAN PERCENT AUTO 3 % (0-1); LYMPHOCYTES ABSOLUTE AUTO 0.95 K/mm3 (0.84-5.20); LYMPHOCYTES PERCENT AUTO 9 % (21-46); MONOCYTES ABSOLUTE AUTO 0.63 K/mm3 (0.16-1.47); MONOCYTES PERCENT AUTO 6 % (4-13); Mean Corpuscular HGB 26.2 pg (26.0-34.0); Mean Corpuscular HGB Conc 31.1 g/dL (31.5-36.5); Mean Corpuscular Volume 84 fL (80-100); Mean Platelet Volume 9.9 fL (9.1-12.4); NEUTROPHILS ABSOLUTE AUTO 8.38 K/mm3 (1.96-9.15); NEUTROPHILS PERCENT AUTO 82 % (41-73); NRBC ABSOLUTE 0.02 K/mm3 (0.00-0.02); NRBC Auto 0.2 /100 WBC (0.0-0.2); Platelet Count 127 K/mm3 (150-400); RDW Standard Deviation 58.6 fL (35.1-46.3); Red Blood Cell Count 2.79 M/mm3 (4.30-5.90); White Blood Cell Count 10.27 K/mm3 (4.00-11.30)
[2020-10-27 04:06] LABS: Alanine Aminotransfer (ALT/SGP 9 U/L (12-78); Albumin, Blood 1.7 g/dL (3.4-5.0); Albumin/Globulin Ratio 0.4 (0.8-1.8); Alk Phos 73 U/L (50-136); Anion Gap 2 mmol/L (6-16); Aspartate Aminotrans (AST/SGOT 8 U/L (12-37); Bilirubin, Total 0.2 mg/dL (0.1-1.0); Blood Urea Nitrogen 20 mg/dL (8-24); CO2, Blood 30 mmol/L (21-32); Calcium, Blood 8.1 mg/dL (8.5-10.1); Chloride, Blood 111 mmol/L (98-108); Globulin, Blood 4.2 g/dL (2.2-4.0); Glomerular Filtration Rate >60 (60-); Glucose, Blood 160 mg/dL (70-99); Magnesium, Blood 2.1 mg/dL (1.6-2.4); Phosphorus, Blood 2.7 mg/dL (2.5-4.9); Sodium, Blood 143 mmol/L (136-145); Total Protein, Blood 5.9 g/dL (6.4-8.2)
[2020-10-27 04:45] LABS: PCO2 Arterial 42.4 mmHg (35-45); pH Blood Arterial 7.43 (7.35-7.45)
--- NOTE | 2020-10-27 06:31 | NUR ---
SHIFT SUMMARY PT REMAINS INTUBATED AND SEDATED. NO SIGNIFICANT CHANGES T/O THE SHIFT.VENT SETTINGS AC: 18, 450, 15, 45% c O2 SATS >90%. PERFORMED SHORT SEDATION VACATION THIS AM. PT ABLE TO FOLLOW SIMPLE COMMANDS, BUT QUICKLY BECAME ANXIOUS AND STARTED TO COUGH. ABLE TO CALM PT DOWN WHILE PROPOFOL GTT STARTED. O2 SATS DECREASED TO LOW 90'S WHEN PT BEGAN TO WAKEN. VSS REMAINED STABLE. WILL CONTINUE TO MONITOR UNTIL REPORT TO ONCOMING NURSE.
--- NOTE | 2020-10-27 10:15 | NUR ---
ASSUMED CARE OF PT, REPORT RCV'D FROM MONICA SANFORD. PT INTUBATED AND SEDATED. VENT SETTINGS AC 18/450/15/45%. PROPOFOL @40 MCG/KG/MIN AND FENTANYL PIPE CONNECTOR 25 MCG/HR. LUNG SOUNDS COARSE T/O, SMALL AMOUNT OF THICK SPUTUM FROM ETT. PT OPENS EYES TO VERBAL STIMULI, FAILS TO FOLLOW COMMANDS. VITAL HIGH PROTEIN @ 45 ML/HR (GOAL) WITH 30 ML Q4 FLUSH. VSS AT THIS TIME. SEE FULL SHIFT ASSESSMENT.
--- NOTE | 2020-10-27 10:24 | NUR ---
SPOKE WITH PT'S MOTHER. UPDATED ON PT'S STATUS AND REVIEWED VISITATION GUIDELINES.
--- NOTE | 2020-10-27 14:47 | NUR ---
DOCUMENTATION CLERK AT BEDSIDE
--- NOTE | 2020-10-27 18:25 | NUR ---
SHIFT SUMMARY NO ACUTE CHANGES THIS SHIFT. PT REMAINS INTUBATED AND SEDATED. VENT SETTINGS AC 18/450/12/40%. PROPOFOL @40 MCG/KG/MIN, FENTANYL BILLET INSPECTOR @25 MCG/HR. PT'S MOTHER IN TO VISIT THIS AFTERNOON, UPDATED WITH PT'S STATUS. WILL REPORT TO ONCOMING NURSE.
--- NOTE | 2020-10-27 20:00 | NUR ---
ASSUMPTION OF CARE PT INTUBATED AND SEDATED ON PROPOFOL AND FENTANYL GTT, PRN ATIVAN AVAILABLE. PT AROUSES TO VERBAL STIMULI AND FOLLOWS DIRECTIONS. VENT SET TO AC 18/450/12/40%. MONITOR SHOWS SINUS RHYTHM WITH HR 40'S-50'S, BP STABLE. SKIN OVERALL C/D/I. WILLOUGHBY IN PLACE DRAINING YELLOW URINE. OG IN PLACE, TF INFUSING @ 30ml/hr, LOW RESIDUALS.
[2020-10-28 04:48] LABS: Hematocrit 25.1 % (37.0-53.0); Hemoglobin 7.6 g/dL (13.5-17.5); Mean Corpuscular HGB 25.8 pg (26.0-34.0); Mean Corpuscular HGB Conc 30.3 g/dL (31.5-36.5); Mean Corpuscular Volume 85 fL (80-100); Mean Platelet Volume 10.6 fL (9.1-12.4); NRBC ABSOLUTE 0.05 K/mm3 (0.00-0.02); NRBC Auto 0.4 /100 WBC (0.0-0.2); Platelet Count 144 K/mm3 (150-400); RDW Coefficient Variation 19.4 % (11.7-14.2); RDW Standard Deviation 60.3 fL (35.1-46.3); Red Blood Cell Count 2.95 M/mm3 (4.30-5.90); White Blood Cell Count 11.45 K/mm3 (4.00-11.30)
[2020-10-28 05:07] LABS: Albumin, Blood 1.8 g/dL (3.4-5.0); Anion Gap 3 mmol/L (6-16); Blood Urea Nitrogen 24 mg/dL (8-24); Bun/Creatinine Ratio 32.8 (12.0-20.0); CO2, Blood 30 mmol/L (21-32); Calcium, Blood 8.1 mg/dL (8.5-10.1); Chloride, Blood 109 mmol/L (98-108); Creatinine, Blood 0.73 mg/dL (0.60-1.20); Glomerular Filtration Rate >60 (60-); Glucose, Blood 179 mg/dL (70-99); Phosphorus, Blood 3.5 mg/dL (2.5-4.9); Sodium, Blood 142 mmol/L (136-145); Vancomycin, Trough 17.3 ug/mL (5.0-10.0)
[2020-10-28 05:27] LABS: BAND PERCENT MAN 3 % (0-8); BASOPHILS PERCENT MAN 0 % (0-2); EOSINOPHILS PERCENT MAN 0 % (0-6); LYMPHOCYTES ABSOLUTE MAN 0.91 K/mm3 (0.84-5.20); LYMPHOCYTES PERCENT MAN 8 % (21-46); METAMYELOCYTE ABSOLUTE MAN 0.11 K/mm3 (0.00-0.00); METAMYELOCYTE PERCENT MAN 1 % (0-0); MONOCYTES ABSOLUTE MAN 0.68 K/mm3 (0.16-1.47); MONOCYTES PERCENT MAN 6 % (4-13); NEUTROPHILS ABSOLUTE MAN 9.73 K/mm3 (1.96-9.15); SEG NEUTROPHILS PERCENT MAN 82 % (41-73); TOTAL CELLS COUNTED 100
--- NOTE | 2020-10-28 07:22 | NUR ---
SHIFT SUMMARY NO ACUTE CHANGES THIS SHIFT. PT REMAINS INTUBATED, VENT SET TO AC 18/450 PEEP 12 AND FIO2 35-50%, PT DOES NOT TOLERATE DECREASE IN SEDATION, BEGINS COUGHING VENT AND SITTING UP IN BED WITH O2 SATURATIONS DECREASING 79-83% WITH VERY SLOW RECOVERY. PRN ATIVAN ADMINISTERD x3 THIS SHIFT. MONITOR SHOWS SINUS RHYTHM WITH HR 40'S-50'S, BP STABLE. TF INF @ 30ml/hr, 1 BM THIS SHIFT. WILLOUGHBY IN PLACE WITH GOOD OUTPUT.
--- NOTE | 2020-10-28 07:26 | NUR ---
Received report from Daja ANDERSON. Patient is intubated and sedated. He has 8.0 ET and 27 cm at lips with vent settings AC 18, TV 450, FiO2 40%, Peep 12.p and sats 92%.He has OG in place and infusing at goal rate of 30ml/hr of Vital High Protein and 30 ml water flushes Q4.He has 18ga IV in LAC dressing intact and site WNL's and is infusing Fentanyl 25 mcg/hr. He also has PICC line to KASSANDRA dressing intact and site WNL's and is infusing Propofol at 60 mcg/kg/min, NS TKO, LR at 100 ml/hr. He has 14Fr. Jorgensen draining to gravity. he has bilateral LE SCDE's in place. He has bilateral soft wrist restraints for patient and line safety. VSS, HR 55 SB, systolics 120's.
--- NOTE | 2020-10-28 09:39 | NUR ---
No significant changes with patient since am note. Dr potter in room assessing patient and no new orders. Calling oncology to let know in hospital and possible reaction to meication. VSS, and remains sedated.
--- NOTE | 2020-10-28 11:43 | NUR ---
Repositioned patient. Reduced Propofol to 50 mcg/kg min and he awakens to verbal stimuli and knods to questions, Oral care done. Jorgensen continues to drain to gravity green/yellow urine adequate amounts. VSS, See EMR. Dr Diez talked to Dr Estevez and states only will visit if requested. No New orders.
--- NOTE | 2020-10-28 13:27 | NUR ---
Patients FiO2 has been reduced to 30% and sats >90. Also Dr Rg donged LR to 50 ml/hr. No other significant changes, Propofol remains at 50 mcg/kg/min.
--- NOTE | 2020-10-28 15:30 | NUR ---
Patient continues to rest on Propofol 50 mcg/kg/min. Mother by and gave update and spent some time at bedside. LR reduced to 50ml/hr. He continues to awaken to verbal stimuli and knods yes and no to questions.Increased FiO2 to 35% and sats >90%.
--- NOTE | 2020-10-28 18:00 | NUR ---
Patient continues to rest on sedation. Vent setting AC 18, TV 450, FiO2 35%, Peep 12 and sats >90%. ET 8.0 and 27 cm at lips. 18ga IV to LAC and infusing Fentanyl 25 mcg/hr. He also has PICC to KASSANDRA infusing Propofol at 50 mcg/kg/min, LR at 50 ml/hr and NS TKO for Abx. 14 Fr rojo draining to gravity green/yellow urine and 1700 ml's. he has one brown/orange stool at end of shift, approx 150ml pastey stool. He has SCD's bilaterally to LE's. He has bilateral soft wrist restraints in place. He has OG infusing VHP at 30ml/hr goal rate and 30ml water flushes Q4. Paatient continues to awaken to verbal stimuli and knod yes and no to questions.
--- NOTE | 2020-10-28 22:56 | NUR ---
ASSUMED CARE AT 1900 PT LAYING IN BED INTUBATED WITH VENT SETTINGS AC 18, TV 450, PEEP 12, FIO2 45%. PT HAS COUGHING EPISODES WITH LARGE AMOUNTS OF CLEAR SECREATIONS SUCTIONED THROUGH ETT, AND CLEAR ORAL SECREATIONS. PT IS ALERT AND ABLE TO NOD TO YES/NO QUESTIONS, POINT TO OBJECTS, AND FOLLOWS DIRECTIONS; PROPOFOL INFUSING AT 50MCG/KG/MIN. SINUS KILLIAN WITH RATE 50-60'S. SBP 120-130'S. AFIBRILE. VHP INFUSING VIA OG AT 30ML/HR (GOAL) WITH 30ML WATER FLUSHES Q4HR. WILLOUGHBY PATENT AND DRAINING TO GRAVITY. BEAR KEEPER FENTANYL INFUSING AT 25MCG/HR. SEE SHIFT ASSESSMENT FOR FULL ASSESSMENT.
[2020-10-29 05:27] LABS: Hematocrit 24.7 % (37.0-53.0); Hemoglobin 7.5 g/dL (13.5-17.5); Mean Corpuscular HGB 26.2 pg (26.0-34.0); Mean Corpuscular HGB Conc 30.4 g/dL (31.5-36.5); Mean Corpuscular Volume 86 fL (80-100); Mean Platelet Volume 10.6 fL (9.1-12.4); NRBC Auto 2.1 /100 WBC (0.0-0.2); Platelet Count 130 K/mm3 (150-400); RDW Coefficient Variation 19.6 % (11.7-14.2); RDW Standard Deviation 62.5 fL (35.1-46.3); Red Blood Cell Count 2.86 M/mm3 (4.30-5.90); White Blood Cell Count 9.59 K/mm3 (4.00-11.30)
[2020-10-29 05:43] LABS: Albumin, Blood 1.7 g/dL (3.4-5.0); Anion Gap 4 mmol/L (6-16); Blood Urea Nitrogen 27 mg/dL (8-24); Bun/Creatinine Ratio 30.9 (12.0-20.0); CO2, Blood 32 mmol/L (21-32); Calcium, Blood 7.8 mg/dL (8.5-10.1); Chloride, Blood 111 mmol/L (98-108); Creatinine, Blood 0.87 mg/dL (0.60-1.20); Glomerular Filtration Rate >60 (60-); Glucose, Blood 100 mg/dL (70-99); Phosphorus, Blood 3.4 mg/dL (2.5-4.9); Potassium, Blood 3.5 mmol/L (3.5-5.5); Sodium, Blood 147 mmol/L (136-145)
[2020-10-29 05:59] LABS: BASOPHILS PERCENT MAN 0 % (0-2); EOSINOPHILS PERCENT MAN 0 % (0-6); LYMPHOCYTES ABSOLUTE MAN 1.05 K/mm3 (0.84-5.20); LYMPHOCYTES PERCENT MAN 11 % (21-46); METAMYELOCYTE ABSOLUTE MAN 0.19 K/mm3 (0.00-0.00); METAMYELOCYTE PERCENT MAN 2 % (0-0); MONOCYTES ABSOLUTE MAN 0.19 K/mm3 (0.16-1.47); MONOCYTES PERCENT MAN 2 % (4-13); MYELOCYTE ABSOLUTE MAN 0.38 K/mm3 (0.00-0.00); MYELOCYTE PERCENT MAN 4 % (0-0); NEUTROPHILS ABSOLUTE MAN 7.76 K/mm3 (1.96-9.15); SEG NEUTROPHILS PERCENT MAN 81 % (41-73); TOTAL CELLS COUNTED 100
--- NOTE | 2020-10-29 06:29 | NUR ---
END OF SHIFT SUMMARY PT CONT TO BE INTUBATED WITH VENT SETTINGS AC 18, TV 450, PEEP 12, FIO2 55%. PT HAS HAD EPISODES OF COUGHING WITH LARGE AMOUNTS OF ORAL SECREATIONS, AND ETT SECREATIONS. ATIVAN GIVEN TWICE DUE TO AXIOUSNESS AND AGGITATION. PT IS ABLE TO ANSWER YES/NO QUESTIONS, POINT TO OBJECTS, AND FOLLOWS DIRECTIONS. PROPOFOL INFUSING AT 50MCG/KG/MIN. APPLIANCE MECHANIC FENTANYL 25MCG/HR. AFIBRILE. HR 50-60'S. SBP 100-130'S. VHP INFUSING VIA OG AT 30ML/HR WITH 30ML WATER FLUSHES Q4HR. WILLOUGHBY IN PLACE AND DRAINING TO GRAVITY. KASSANDRA PICC DRESSING C/D/I. BED BATH COMPLETED THIS SHIFT. WILL REPORT TO AM RN WHEN AVAILABLE.
--- NOTE | 2020-10-29 07:18 | NUR ---
Received report from Madiha ANDERSON. Patient is intubated and sedated. He has 8.0 ET and 27 cm at lips with vent settings of AC 18, TV 450, FiO2 55%, PEEP 12.0 and sats >90%. He awakens to verbal stimuli and knods yes and no and uses hand jestures. He has 18ga IV to LAC dressing intact and site WNL's and is infusing Fentanyl at 25 mcg/hr. He also has PICC line to KASSANDRA dressing intact and site WNL's and is infusing Propofol at 50 mcg/kg/min, LR at 50 ml/hr, NS TKO. He has OG in place infusing VHP at 30 ml/hr goal rate and 30 ml water flushes Q4. He has bilateral SCD's in place to LE's, There is 14Fr Jorgensen draining to gravity gree/yellow urine. He has bilateral soft wrist restraint in place for patient and line/tube safety. Oral care, cath care and repositioning done.
--- NOTE | 2020-10-29 09:41 | NUR ---
Patient received ativan 2 MG for agitation and coughing spell. No changes in Vent or gtt settings. He continues to awaken with care and able to communicate yes and no. He is resting quietly on sedation of Propofol 50 mcg/kg/min.
--- NOTE | 2020-10-29 11:29 | NUR ---
Needed to medicate for coughing agiatation and increase FiO2 briefly to keep sats >90%. He is currently resting on sedation. Dr. Toney was in room assessing and no current new orders. VSS, See EMR. No vent, and or gtt's setting changes.
--- NOTE | 2020-10-29 13:46 | NUR ---
Patient is resting, no significant changes.
--- NOTE | 2020-10-29 18:24 | NUR ---
Patient continues to rest most of time with intermitent poeriods of agitation fom coughing and medicating with Ativan when not resolving. Propofol remainws at 50mcg/kg/min, LR at 50 ml/hr and NS TKO. 8. ET and 27 cm at lips with vent settings of AC 18, TV 450, FiO2 60% and PEEP of 12 and sats >90%. OG in place and continues VHP at goal rate of 30ml/hr and 30 mlwater flushes Q$. SCD in place bilateral LE's. He has bilateral soft wrist restraints to protect lines and tubes. He continues to communicate with hand jestures and nods.
--- NOTE | 2020-10-29 22:01 | NUR ---
SHIFT ASSESSMENT ASSUMED CARE OF PT @ 1900, REPORT RECV'D FROM KIRAN ANDERSON. PT INTUBATED AND SEDATED BUT RESPONDS TO VERBAL STIMULI. WILL SQUEEZE HANDS AND SHAKE HEAD. PROPOFOL GTT @ 50MCG. 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 PRN ATIVAN. VENT SETTINGS: AC-18/450/60/12 c O2 SATS >90%. TF c VHP @ GOAL. NS/SINUS KILLIAN ON THE GUEST SERVICES LEAD. [place] CATH DRAINING GREEN/YELLOW URINE. WILL CONTINUE TO MONITOR.
[2020-10-30 03:28] LABS: Hematocrit 25.6 % (37.0-53.0); Hemoglobin 7.8 g/dL (13.5-17.5); Mean Corpuscular HGB 26.3 pg (26.0-34.0); Mean Corpuscular HGB Conc 30.5 g/dL (31.5-36.5); Mean Corpuscular Volume 86 fL (80-100); Mean Platelet Volume 10.1 fL (9.1-12.4); NRBC ABSOLUTE 0.09 K/mm3 (0.00-0.02); NRBC Auto 0.8 /100 WBC (0.0-0.2); Platelet Count 133 K/mm3 (150-400); RDW Coefficient Variation 19.9 % (11.7-14.2); RDW Standard Deviation 62.1 fL (35.1-46.3); Red Blood Cell Count 2.97 M/mm3 (4.30-5.90); White Blood Cell Count 11.21 K/mm3 (4.00-11.30)
[2020-10-30 03:34] LABS: Base Excess Venous 7.9 mmol/L; Bicarbonate Venous 31.1 mmol/L (24.0-30.0); PCO2 Venous 36.4 mmHg (38-42); PO2 Venous 62.5 mmHg (38-42); pH Blood Venous 7.53 (7.34-7.37)
[2020-10-30 03:43] LABS: Albumin, Blood 1.6 g/dL (3.4-5.0); Anion Gap 5 mmol/L (6-16); Blood Urea Nitrogen 25 mg/dL (8-24); Bun/Creatinine Ratio 28.7 (12.0-20.0); CO2, Blood 31 mmol/L (21-32); Calcium, Blood 7.8 mg/dL (8.5-10.1); Chloride, Blood 108 mmol/L (98-108); Creatinine, Blood 0.87 mg/dL (0.60-1.20); Glomerular Filtration Rate >60 (60-); Glucose, Blood 113 mg/dL (70-99); Phosphorus, Blood 4.7 mg/dL (2.5-4.9); Potassium, Blood 3.2 mmol/L (3.5-5.5); Sodium, Blood 144 mmol/L (136-145)
[2020-10-30 03:49] LABS: BAND PERCENT MAN 3 % (0-8); BASOPHILS PERCENT MAN 0 % (0-2); EOSINOPHILS ABSOLUTE MAN 0.33 K/mm3 (0.00-0.68); EOSINOPHILS PERCENT MAN 3 % (0-6); LYMPHOCYTES ABSOLUTE MAN 1.68 K/mm3 (0.84-5.20); LYMPHOCYTES PERCENT MAN 15 % (21-46); METAMYELOCYTE ABSOLUTE MAN 0.11 K/mm3 (0.00-0.00); METAMYELOCYTE PERCENT MAN 1 % (0-0); MONOCYTES ABSOLUTE MAN 0.78 K/mm3 (0.16-1.47); MONOCYTES PERCENT MAN 7 % (4-13); MYELOCYTE ABSOLUTE MAN 0.22 K/mm3 (0.00-0.00); MYELOCYTE PERCENT MAN 2 % (0-0); NEUTROPHILS ABSOLUTE MAN 8.07 K/mm3 (1.96-9.15); SEG NEUTROPHILS PERCENT MAN 69 % (41-73); TOTAL CELLS COUNTED 100
--- NOTE | 2020-10-30 05:42 | NUR ---
SHIFT SUMMARY PT REMAINS INTUBATED AND SEDATED, FOLLOWING SIMPLE COMMANDS. VENT SETTINGS CHANGED THIS AM SECONDARY TO VBG RESULTS PER DR QUACH. VENT-AC: /60/12. LS REMAIN DIMINISHED IN LOWERS. PROPOFOL TITRATED TO A MAX OF 70MCG/KG/MIN DUE TO PT PULLING AT RESTRAINTS AND HAVING COUGHING BOUTS. ATIVAN GIVEN MULTIPLE TIMES THIS SHIFT SECONDARY TO COUGHING BOUTS. CURRENTLY PROPOFOL @ 60MCG/KG/MIN. [place] CATH DRAINING YELLOW/GREEN URINE. PT HAD TWO LOOSE BM'S THIS SHIFT. NO OTHER CHANGES. WILL CONTINUE TO MONITOR.
--- NOTE | 2020-10-30 08:10 | NUR ---
ASSSESSMENT- PT SEDATED WITH PROPOFOL AT 60 MCG/KG/MIN, MOVES WITH ANY STIMULATION, DOESN'T FOLLOW COMMANDS. GRIMACES, FENTANYL GTT AT 25 MCG/HR.. LR 75 CC/HR. NS TKO. RIGHT ARM PICC INTACT. NSR. ORALLY INTUBATED, TUBE SECURE, TOLERATING VENT. LUNGS COARSE THROUGHOUT. ABDOMEN LARGE, SOFT. TUBE FEEDING PIVOT AT GOAL 30 CC/HR, 10 CC RESIDUAL. UO VIA WILLOUGHBY, NO LEAKAGE NOTED. REPOSITIONED. BILATERAL WRIST RESTRAINTS ON FOR SAFETY, SELF EXTUBATION RISK.
--- NOTE | 2020-10-30 09:29 | NUR ---
INCONTINENT LIQUID STOOL-RECTAL TUBE PLACED, LINEN CHANGE DONE. PT AGITATED, RX WITH ATIVAN.
--- NOTE | 2020-10-30 10:50 | NUR ---
REPOSITIONED, VSS. UO GOOD VIA WILLOUGHBY. ORDERS TO DC IVF. DR. QUACH HERE-UPDATED. DECREASED TO 50%, SATURATIONS STABLE.
--- NOTE | 2020-10-30 11:39 | NUR ---
IV LASIX GIVEN PER ORDERS. REPOSITIONED, COUGHING WITH ANY STIMULATION
--- NOTE | 2020-10-30 14:07 | NUR ---
DECREASED PROPOFOL, PT AWAKE, ABLE TO NOD HEAD TO QUESTIONS, UNCOMFORTABLE, INCREASED PROPOFOL FOR SEDATION TO 60 MCG/KG/MIN. REPOSITIONED. AFIB NOW-120-140'S, BP STABLE. DR. QUACH HERE-LABS ORDERED. DIURESING WELL
[2020-10-30 14:40] LABS: Magnesium, Blood 1.7 mg/dL (1.6-2.4); Phosphorus, Blood 4.2 mg/dL (2.5-4.9); Potassium, Blood 3.4 mmol/L (3.5-5.5)
--- NOTE | 2020-10-30 15:51 | NUR ---
POTASSIUM AND MAGNESIUM INFUSIONS STARTED. HAD CONVERTED BACK TO SR, BP STABLE. ABLE TO OPEN EYES TO NAME, NODS HEAD. UNABLE TO TOLERATE LAYING TO LEFT SIDE-SATURATIONS DECREASED TO 83%, RECOVERED WITH REPOSITIONING. TOLERATES LAYING TO RIGHT SIDE AND SUPINE.
--- NOTE | 2020-10-30 19:00 | NUR ---
CONTINUES NSR, BP STABLE. SEDATE, CALM, AWAKENS EASILY TO ANY STIMULUS. TOLERATING VENT SETTINGS. PICC INTACT. DR. QUACH HERE. PEEP DECREASED TO 10. CONTINUE TO MONITOR
--- NOTE | 2020-10-30 20:15 | NUR ---
SHIFT ASSESSMENT ASSUMED CARE OF PT @ 1900, REPORT RECV'D FROM MISTY ANDERSON. PT INTUBATED AND SEDATED. WILL RESPOND TO VERBAL STIMULI, FOLLOWS SIMPLE COMMNANDS, SQUEEZES BOTH HANDS AND SHAKES HEAD YES/NO. PROPOFOL GTT @60MCG/KG/MIN, FENTANYL PAYROLL LEAD @ 25MCG. VENT SETTINGS: AC-14/450/50/10 c O2 SATS >90%. TF @ GOAL. WILLOUGHBY CATH PATENT DRAINING TO GRAVITY. RECTAL TUBE DRAINING LIQUID STOOL. DURING ASSESSMENT PT HAD A COUGHING BOUT, SATS DECREASED TO THE LOW 80'S. DR QUACH IN THE ROOM, FIO2 TEMPORARILY SET @ 100%. 4MG ATIVAN GIVEN. ONCE PT CALMED BACK DOWN, FIO2 WAS TITRATED BACK DOWN TO 50% c O2 >90%. ORDERS PLACED FOR PRN FENTANYL A COUGH SUPPRESANT. WILL CONTINUE TO MONITOR.
[2020-10-31 03:50] LABS: Base Excess Venous 9.2 mmol/L; Bicarbonate Venous 31.9 mmol/L (24.0-30.0); PCO2 Venous 40.9 mmHg (38-42); pH Blood Venous 7.51 (7.34-7.37)
[2020-10-31 03:53] LABS: Hemoglobin 8.2 g/dL (13.5-17.5); Mean Corpuscular HGB 26.2 pg (26.0-34.0); Mean Corpuscular HGB Conc 30.4 g/dL (31.5-36.5); Mean Corpuscular Volume 86 fL (80-100); Mean Platelet Volume 10.8 fL (9.1-12.4); NRBC ABSOLUTE 0.02 K/mm3 (0.00-0.02); NRBC Auto 0.1 /100 WBC (0.0-0.2); Platelet Count 131 K/mm3 (150-400); RDW Coefficient Variation 19.8 % (11.7-14.2); RDW Standard Deviation 60.9 fL (35.1-46.3); Red Blood Cell Count 3.13 M/mm3 (4.30-5.90); White Blood Cell Count 14.53 K/mm3 (4.00-11.30)
[2020-10-31 04:08] LABS: Anion Gap 3 mmol/L (6-16); Blood Urea Nitrogen 21 mg/dL (8-24); Bun/Creatinine Ratio 25.5 (12.0-20.0); CO2, Blood 33 mmol/L (21-32); Calcium, Blood 7.9 mg/dL (8.5-10.1); Chloride, Blood 106 mmol/L (98-108); Creatinine, Blood 0.82 mg/dL (0.60-1.20); Glomerular Filtration Rate >60 (60-); Glucose, Blood 118 mg/dL (70-99); Magnesium, Blood 1.8 mg/dL (1.6-2.4); Phosphorus, Blood 3.5 mg/dL (2.5-4.9); Potassium, Blood 3.7 mmol/L (3.5-5.5); Sodium, Blood 142 mmol/L (136-145)
[2020-10-31 04:15] LABS: BAND PERCENT MAN 2 % (0-8); BASOPHILS PERCENT MAN 0 % (0-2); EOSINOPHILS ABSOLUTE MAN 0.43 K/mm3 (0.00-0.68); EOSINOPHILS PERCENT MAN 3 % (0-6); LYMPHOCYTES ABSOLUTE MAN 1.45 K/mm3 (0.84-5.20); LYMPHOCYTES PERCENT MAN 10 % (21-46); METAMYELOCYTE ABSOLUTE MAN 0.29 K/mm3 (0.00-0.00); METAMYELOCYTE PERCENT MAN 2 % (0-0); MONOCYTES ABSOLUTE MAN 0.29 K/mm3 (0.16-1.47); MONOCYTES PERCENT MAN 2 % (4-13); MYELOCYTE ABSOLUTE MAN 0.14 K/mm3 (0.00-0.00); MYELOCYTE PERCENT MAN 1 % (0-0); NEUTROPHILS ABSOLUTE MAN 11.91 K/mm3 (1.96-9.15); SEG NEUTROPHILS PERCENT MAN 80 % (41-73); TOTAL CELLS COUNTED 100
--- NOTE | 2020-10-31 06:08 | NUR ---
SHIFT SUMMARY PT REMAINS INTUBATED AND SEDATED. WILL FOLLOW SIMPLE COMMANDS IN RESPONSE TO VERBAL STIMULI. PROPOFOL CONTINUES AT 60MCG/KG/MIN. VENT SETTINGS: AC-14/450/10/50. FI02 TITRATED DUE TO SATS REMAINING BELOW 88% WHILE PT IS ON HIS R SIDE, DURING THOSE TIMES FIO2 WAS TITRATED TO 60%. FIO2 ABLE TO TITRATE BACK DOWN TO 50% WHILE PT IS ON HIS L SIDE AND BACK. PT HAD MULTIPLE COUGHING BOUTS T/O THE NIGHT WHICH WERE TREATED WITH PRN FENTANYL AND ATIVAN. NS/SINUS KILLIAN ON THE CONDEMNATION ENGINEER. RECTAL TUBE REMAINS PATENT, DRAINING BROWN, LOOSE STOOL. WILLOUGHBY CATH DRAINING LIGHT GREEN URINE. AM VANCO TROUGH BACK AT 21.0, PHARMACIST NOTIFIED. WILL CONTINUE TO MONITOR.
--- NOTE | 2020-10-31 08:00 | NUR ---
ASSUMED CARE BEDSIDE REPORT FROM JUVENAL ANDERSON AT 0700. PT INTUBATED AND SEDATED. VENT SETTINGS AC 14/450/10/60%. PROPOFOL GTT 60 MCG/KG/HR, FENTANYL 25 MCG/HR. PT RESPONDS TO NOXIOUS STIMULI. DOES NOT FOLLOW COMMANDS. COUGHS AND PULLS HEAD FROM CARE. PT DESATS DURING THESE EPISODES, MID 80'S. LUNGS CLEAR. SMALL AMOUNT OF THIN WHITE SECERTIONS THROUGH ETT. ABD SOFT, ROUND, NON TENDER. BT X 4. VHP AT 15 ML/HR c 30 ML FLUSHES q4. 20 ML RESIDUALS THIS AM. WILL[place]BY PATENT, DRAINING TO GRAVITY. RECTAL TUBE IN PLACE, LIQUID BROWN STOOL OUT. PICC TO LINDA, DRESSING C/D/I. VSS. WILL CONTINUE TO MONITOR.
--- NOTE | 2020-10-31 11:06 | NUR ---
Pt resting in bed and is intubated. Spoke with Bedside RN Tierney and discussed case. Pt requiring significant vent support and sedation. Called and spoke with Pt's mother Summer. Provided update and established rapport. Summer reports plan to visit Pt today. Answered question. Summer expresses appreciation of call. Palliative Care will remain available.
--- NOTE | 2020-10-31 17:10 | NUR ---
SHIFT SUMMARY PT REMAINS INTUBATED AND SEDATED. VENT SETTINGS AC 14/450/12/70%. PROPOFOL GTT 30 MCG/KG/MIN, FENTANYL GTT 25 MCG/HR, AND PRECEDEX 0.7 MCG/KG/HR ADDED THIS SHIFT. PT WAKES TO VERBAL STIMULI, FOLLOWS SIMPLE COMMANDS. UNABLE TO ANSWER YES/NO QUESTIONS. LUNGS CLEAR. SMALL AMOUNT OF THIN, WHITE SECRETIONS THROUGH ETT. ABD ROUND, SOFT NON TENDER. BT X 4. VHP CONTINUES AT 15 ML/HR c 30 ML FLUSHES q4. WILLOUGHBY PATENT, DRAINING CLEAR YELLOW URINE TO GRAVITY. PT CHANGED TO AFIB, RATE 110-130'S. DR KAISER NOTIFIED. BP STABLE. WILL CONTINUE TO MONITOR UNTIL REPORT TO ONCOMING NURSE.
--- NOTE | 2020-10-31 20:00 | NUR ---
ASSUMED CARE: PT INTUBATED AND SEDATED ON PROPOFOL, PRECEDEX, AND FENTANYL. VENT SETTINGS ARE 14/450/12/70%. TOLERATING WELL. VSS. PT HAS HAD EPISODES OF RUNS OF AFIB BUT CARDIOVERTS SELF BACK INTO NSR. LUNGS CLEAR. WILLOUGHBY IN PLACE. RECTAL TUBE IN PLACE. TF RUNNING THROUGH OGT AT 15MLS/HR. PT TOLERATING WELL.
--- NOTE | 2020-11-01 00:48 | NUR ---
PT IS HAVING RUNS OF A FIB WITH HR IN THE 130S. CONVERTS BACK TO NSR ON OWN.
[2020-11-01 01:28] LABS: BASOPHILS ABSOLUTE AUTO 0.14 K/mm3 (0.00-0.23); BASOPHILS PERCENT AUTO 1 % (0-2); EOSINOPHILS ABSOLUTE AUTO 0.34 K/mm3 (0.00-0.68); EOSINOPHILS PERCENT AUTO 2 % (0-6); Hematocrit 29.5 % (37.0-53.0); Hemoglobin 8.9 g/dL (13.5-17.5); IMMATURE GRAN ABSOLUTE AUTO 1.84 K/mm3 (0.00-0.10); IMMATURE GRAN PERCENT AUTO 11 % (0-1); LYMPHOCYTES ABSOLUTE AUTO 1.32 K/mm3 (0.84-5.20); LYMPHOCYTES PERCENT AUTO 8 % (21-46); MONOCYTES ABSOLUTE AUTO 0.83 K/mm3 (0.16-1.47); MONOCYTES PERCENT AUTO 5 % (4-13); Mean Corpuscular HGB 26.2 pg (26.0-34.0); Mean Corpuscular HGB Conc 30.2 g/dL (31.5-36.5); Mean Corpuscular Volume 87 fL (80-100); Mean Platelet Volume 10.7 fL (9.1-12.4); NEUTROPHILS ABSOLUTE AUTO 11.99 K/mm3 (1.96-9.15); NEUTROPHILS PERCENT AUTO 73 % (41-73); Platelet Count 132 K/mm3 (150-400); RDW Coefficient Variation 19.6 % (11.7-14.2); RDW Standard Deviation 61.7 fL (35.1-46.3); White Blood Cell Count 16.46 K/mm3 (4.00-11.30)
[2020-11-01 01:42] LABS: Anion Gap 4 mmol/L (6-16); Blood Urea Nitrogen 26 mg/dL (8-24); Bun/Creatinine Ratio 28.9 (12.0-20.0); CO2, Blood 32 mmol/L (21-32); Calcium, Blood 8.4 mg/dL (8.5-10.1); Chloride, Blood 106 mmol/L (98-108); Glomerular Filtration Rate >60 (60-); Glucose, Blood 152 mg/dL (70-99); Magnesium, Blood 1.8 mg/dL (1.6-2.4); Phosphorus, Blood 3.4 mg/dL (2.5-4.9); Potassium, Blood 3.9 mmol/L (3.5-5.5); Sodium, Blood 142 mmol/L (136-145)
[2020-11-01 01:45] LABS: BAND PERCENT MAN 2 % (0-8); BASOPHILS PERCENT MAN 0 % (0-2); EOSINOPHILS ABSOLUTE MAN 0.49 K/mm3 (0.00-0.68); EOSINOPHILS PERCENT MAN 3 % (0-6); LYMPHOCYTES ABSOLUTE MAN 1.64 K/mm3 (0.84-5.20); LYMPHOCYTES PERCENT MAN 10 % (21-46); METAMYELOCYTE ABSOLUTE MAN 1.15 K/mm3 (0.00-0.00); METAMYELOCYTE PERCENT MAN 7 % (0-0); MONOCYTES ABSOLUTE MAN 0.82 K/mm3 (0.16-1.47); MONOCYTES PERCENT MAN 5 % (4-13); MYELOCYTE ABSOLUTE MAN 0.16 K/mm3 (0.00-0.00); MYELOCYTE PERCENT MAN 1 % (0-0); NEUTROPHILS ABSOLUTE MAN 12.18 K/mm3 (1.96-9.15); SEG NEUTROPHILS PERCENT MAN 72 % (41-73); TOTAL CELLS COUNTED 100
--- NOTE | 2020-11-01 02:18 | NUR ---
PT WAS HAVING RUNS OF AFIB WITH HR 120-140S. LABS DRAWN EARLY AND K+, PHOS, MAG CAME BACK NORMAL. WILL CONTINUE TO MONITOR AND PASS ON TO DAYSHIFT
--- NOTE | 2020-11-01 03:46 | NUR ---
PT IN AND OUT OF AFIB RVR. CALL PLACED TO [facility] AND ORDERS RECEIVED FOR CARDIZEM 5MG IV PUSH FOLLOWED BY A DILT GTT. DILT GTT STARTED AT 5MG/HR AND IS CURRENTLY INFUSING AT 10MG/HR. PT IS FLIPPING BACK AND FORTH FROM AFIB RVR TO NSR. WILL CONTINUE TO MONITOR
[2020-11-01 05:46] LABS: PCO2 Arterial 42.7 mmHg (35-45); PO2 Arterial 60.8 mmHg (80-100); pH Blood Arterial 7.47 (7.35-7.45)
--- NOTE | 2020-11-01 06:13 | NUR ---
SHIFT SUMMARY: PT IS CURRENTLY SEDATED D/T INCREASED AGITATION, COUGHING/GAGGING AROUND TUBE THAT CAUSED DESATS. FIO2 INCREASED TO 100%. PROPOFOL IS CURRENTLY AT 50MCG, PRECEDEX AT 0.7, FENTANYL GTT AT 25MCG. PT DID REQUIRE A COUPLE DOSES OF ATIVAN. AFEBRILE T/O NIGHT BUT PT WAS DIAPHORETIC AT TIMES. PT IN NSR WITH HR IN THE 60S, SBP IN THE 90S. CARDIZEM IS AT 5MG/HR. WILLOUGHBY AND RECTAL TUBE IN PLACE. TF INFUSING AT 15MLS/HR. VENT SETTINGS ARE 14/450/12/85%. TOLERATING WELL AT THIS TIME. WILL PASS REPORT TO ONCOMING RN
[2020-11-01 08:35] LABS: Vancomycin, Trough 18.3 ug/mL (5.0-10.0)
--- NOTE | 2020-11-01 09:00 | NUR ---
ASSUMED CARE REPORT FROM UMANG ANDERSON. PT INTUBATED AND SEDATED. VENT SETTINGS AC 14/450/12/85%. PROPOFOL GTT 50 MCG/KG/MIN, PRECEDEX 0.7 MCG/KG/HR, FENTANYL 25 MCG/HR. PT WAKES c VERBAL STIMULI, AGITATED c CARE. COUGH, SWALLOW, GAG REFLEX PRESENT. PT INTERMITTANTLY SITS UP IN BED, KICKS LEGS. MEDICATED c PRNS. LUNGS CLEAR, SCANT SECRETIONS THROUGH ETT. ABD ROUND, SOFT, NON TENDER. BT X 4. VHP AT GOAL 15 ML/HR c 30 ML FLUSH q 4HR. 120 ML RESIDUALS THIS AM. WILLOUGHBY PATENT, DRAINING TO GRAVITY, CONTINUING TO DIURESE TODAY. RECTAL TUBE IN PLACE, DRAINING LIQUID BROWN STOOL TO GRAVITY. PICC TO [facility], DRESSING C/D/I. CARDIZEM GTT INFUSING AT SHIFT CHANGED, PLACED ON STANDBY, NSR ON MONITOR. WILL CONTINUE TO MONITOR.
--- NOTE | 2020-11-01 10:00 | NUR ---
DR KAISER ROUND PLAN TO KEEP PT SEDATED THIS SHIFT TO AVOID DESATURATIONS c AGITATION.
--- NOTE | 2020-11-01 17:50 | NUR ---
SHIFT SUMMARY PT REMAINS INTUBATED AND SEDATED. VENT SETTINGS AC 14/450/12/65%. PROPOFOL GTT 50 MCG/KG/MIN, PRECEDEX GTT 1.4 MCG/KG/HR, FENTANYL 25 MCG/HR. NO SEDATION VACATION THIS SHIFT PER DR KAISER. RASS -4. LUNGS CLEAR. SMALL AMOUNT OF SECRETIONS THROUGH ETT. VHP AT GOAL OF 15 ML/HR c 30 ML FLUSHES q4 HR. 100-190 ML RESIDUALS THIS SHIFT. ABD SOFT, ROUND, NON TENDER. BT X 4. WILLOUGHBY PATENT, DRAINING ROB URINE TO GRAVITY, 1450 ML THIS SHIFT. RECTAL TUBE PATENT, DRAINING TO GRAVITY. PT REMAINED IN NSR ENTIRE SHIFT. BP STABLE. WILL CONTINUE TO MONITOR UNTIL REPORT TO ONCOMING NURSE.
--- NOTE | 2020-11-01 21:53 | NUR ---
ASSUMED CARE NOTE/ UPDATE PT LAYING IN BED INTUBATED WITH VENT SETTINGS AC 14, TV 450, PEEP 12, FIO2 65%. PT DOES NOT FOLLOW DIRECTIONS BUT HAS A GAG REFLEX. PRECEDEX INFUSING AT 1.4MCG/KG/HR. PROPOFOL INFUSING AT 50MCG/KG/MIN. FENTANYL NURSERY SCHOOL TEACHER INFUSING AT 25MCG/HR. HR WAS 70-80 NSR; 2000 RHYTHM CHANGED TO AN AFIB RHYTHM WITH RATE 110-150. PT CONT TO BE IN THIS RHYTHM FOR OVER AN HOUR, DR KAISER NOTIFIED AND ORDERS TO RESTART CARDIZEM GTT AND A BOLUS DOES OF CARDIZEM GIVEN. CARDIZEM STARTED AT 5MG/HR; RATE CONT TO BE 110-150; SBP THEN <80 WITH MAP <50; CARDIZEM THEN PLACED ON SB. DR KAISER NOTIFIED AGAIN, NEW ORDERS FOR PHENYLEPHRINE GIVEN. VHP INFUSING VIA OG AT 15ML/HR WITH 30ML WATER FLUSHES Q4HR. RECTAL TUBE AND WILLOUGHBY IN PLACE AND DRAINING TO GRAVITY. SEE SHIFT ASSESSMENT FOR FULL ASSESSMENT.
--- NOTE | 2020-11-01 23:42 | NUR ---
UPDATE DIXIE-SYNEPHRINE TITRATED DOWN TO 25MCG/MIN. BP NOW 108/73 WITH HR 141. DILTIAZEM TITRATED TO 15MG/HR.
--- NOTE | 2020-11-02 00:03 | NUR ---
UPDATE NOTIFIED DR KAISER REGARDING TITRATION OF DIXIE-SYNEPHRINE AND CARDIZEM. NEW ORDERS PROVIDED TO START AN AMIODERONE BOLUS FOLLOWED BY A GTT, KEEP DIXIE-SYNEPHRINE INFUSING, AND TO STOP CARDIZEM WHEN AMIODERONE IS STARTED.
[2020-11-02 04:39] LABS: BASOPHILS ABSOLUTE AUTO 0.14 K/mm3 (0.00-0.23); BASOPHILS PERCENT AUTO 1 % (0-2); Hematocrit 27.3 % (37.0-53.0); Hemoglobin 8.6 g/dL (13.5-17.5); LYMPHOCYTES ABSOLUTE AUTO 2.12 K/mm3 (0.84-5.20); LYMPHOCYTES PERCENT AUTO 12 % (21-46); MONOCYTES ABSOLUTE AUTO 1.66 K/mm3 (0.16-1.47); MONOCYTES PERCENT AUTO 9 % (4-13); Mean Corpuscular HGB 27.2 pg (26.0-34.0); Mean Corpuscular HGB Conc 31.5 g/dL (31.5-36.5); Mean Corpuscular Volume 86 fL (80-100); Platelet Count 175 K/mm3 (150-400); RDW Coefficient Variation 19.5 % (11.7-14.2); RDW Standard Deviation 61.9 fL (35.1-46.3); Red Blood Cell Count 3.16 M/mm3 (4.30-5.90); White Blood Cell Count 18.25 K/mm3 (4.00-11.30)
[2020-11-02 04:41] LABS: EOSINOPHILS ABSOLUTE AUTO 0.59 K/mm3 (0.00-0.68); EOSINOPHILS PERCENT AUTO 3 % (0-6); IMMATURE GRAN ABSOLUTE AUTO 2.35 K/mm3 (0.00-0.10); IMMATURE GRAN PERCENT AUTO 13 % (0-1); NEUTROPHILS ABSOLUTE AUTO 11.39 K/mm3 (1.96-9.15); NEUTROPHILS PERCENT AUTO 62 % (41-73)
[2020-11-02 04:59] LABS: Anion Gap 5 mmol/L (6-16); BAND PERCENT MAN 10 % (0-8); BASOPHILS PERCENT MAN 0 % (0-2); Blood Urea Nitrogen 27 mg/dL (8-24); Bun/Creatinine Ratio 33.7 (12.0-20.0); CO2, Blood 29 mmol/L (21-32); Calcium, Blood 7.2 mg/dL (8.5-10.1); Chloride, Blood 106 mmol/L (98-108); EOSINOPHILS ABSOLUTE MAN 0.36 K/mm3 (0.00-0.68); EOSINOPHILS PERCENT MAN 2 % (0-6); Glomerular Filtration Rate >60 (60-); Glucose, Blood 138 mg/dL (70-99); LYMPHOCYTES ABSOLUTE MAN 0.91 K/mm3 (0.84-5.20); LYMPHOCYTES PERCENT MAN 5 % (21-46); METAMYELOCYTE ABSOLUTE MAN 0.73 K/mm3 (0.00-0.00); METAMYELOCYTE PERCENT MAN 4 % (0-0); MONOCYTES ABSOLUTE MAN 0.18 K/mm3 (0.16-1.47); MONOCYTES PERCENT MAN 1 % (4-13); Magnesium, Blood 1.9 mg/dL (1.6-2.4); NEUTROPHILS ABSOLUTE MAN 16.06 K/mm3 (1.96-9.15); Phosphorus, Blood 2.6 mg/dL (2.5-4.9); Potassium, Blood 3.2 mmol/L (3.5-5.5); SEG NEUTROPHILS PERCENT MAN 78 % (41-73); Sodium, Blood 140 mmol/L (136-145); TOTAL CELLS COUNTED 100; Troponin I <0.015 ng/mL (0.000-0.040)
[2020-11-02 05:39] LABS: PCO2 Arterial 41.8 mmHg (35-45); PO2 Arterial 55.7 mmHg (80-100); pH Blood Arterial 7.47 (7.35-7.45)
--- NOTE | 2020-11-02 06:30 | NUR ---
END OF SHIFT SUMMARY PT CONT TO BE INTUBATED WITH VENT SETTINGS AC 14, TV 450, PEEP 12, FIO2 55%. PT NOT FOLLOWING DIRECTIONS BUT HAS A GAG AND PERRLA. PROPOFOL INFUSING AT 50MCG/KG/MIN. PRECEDEX INFUSING AT 1.4MCG/KG/HR. TENNIS BALL COVERER HAND FENTANYL INFUSING AT 25MCG/HR. RHYTHM CONVERTED BACK TO SIN AT 0247 WITH RATE 60'S. DIXIE INFUSING AT 40MCG/MIN. AMIODERONE INFUSING AT 1MG/MIN. SBP NOW 140'S; WILL TITRATE DOWN TO 25MCG/MIN. VHP INFUSING VIA OG AT GOAL RATE OF 15ML/HR WITH 30ML WATER FLUSHES Q4HR. WILLOUGHBY AND RECTAL TUBE IN PLACE AND DRAINING TO GRAVITY. WILL REPORT TO AM RN WHEN AVAILABLE.
--- NOTE | 2020-11-02 08:30 | NUR ---
ASSUMED CARE REPORT FROM DENIZ ANDERSON AT 0700. REPORT FROM DENIZ RN. PT INTUBATED AND SEDATED. VENT SETTINGS AC 14/450/12/85%. PROPOFOL GTT 50 MCG/KG/MIN, PRECEDEX 1.4 MCG/KG/HR, FENTANYL GTT 25 MCG/HR. PT WAKES c CARE. EASILY BECOMES AGITATED AND COUGHS, FIGHTS VENTILATOR. MEDICATED c PRNS. LUNGS CLEAR. PHENYLEPHRINE GTT FOR MAP>65. AMIODORONE GTT 0.5 MCG/MIN. MODERATE SECRETIONS THROUGH ETT. ABD ROUND, SOFT, NON TENDER. BT X 4. VHP AT GOAL OF 15 ML/HR c 30 ML FLUSHES q 4 HR. 120 ML RESIDUALS THIS AM. WILL[place]BY PATENT, DRAINING CLEAR YELLOW URINE TO GRAVITY. RECTAL TUBE IN PLACE, DRAINING BROWN LOOSE STOOL. WILL CONTINUE TO MONITOR.
[2020-11-02 14:32] LABS: Other Cells, BAL 1 % (0-1)
--- NOTE | 2020-11-02 14:42 | NUR ---
SHIFT SUMMARY/REPORT TO CHERELLE ANDERSON PT REMAINS INTUBATED AND SEDATED. FENTANYL INCREASED TO 75 MCG/HR, PROPOFOL 45 MCG/KG/MIN AND PRECEDEX 1.4 MCG/KG/HR. PHENYLEPHRINE GTT 20 MCG/MIN AND AMIODORONE 0.5 MCG/MIN. PT REMAINED IN NSR THIS SHIFT. BRONCH COMPLETED THIS SHIFT AND SAMPLES TO LAB. WILLOUGHBY PATENT, DRAINING TO GRAVITY. RECTAL TUBE IN PLACE. REPORT TO CHERELLE ANDERSON.
--- NOTE | 2020-11-02 16:05 | NUR ---
ASSUMED PT CARE BEDSIDE REPORT FROM LESLIE ANDERSON. ASSUMED PT CARE. PT INTUBATED AND SEDATED. AC14// SATS >90%. PT HAD BRONCH EARLIER TODAY, AWAITING SPECIMEN RESULTS. WILL CALL DR KAISER. PT IN NSR PER MONITOR, SBP 100 ON NEOSYNEPHRINE @ 20MCG/MIN, PROPOFOL CURRENTLY INF @45MCG/KG/MIN, PRECEDEX INF @ 1.4MCG/KG/HR, AMIO INF @ 0.5MG/HR, NS INF @ KVO, FENTANYL INF @ 75MCG/HR. SKIN PALE AND INTACT. WILLOUGHBY DRAINING DARK YELLOW URINE. RECTAL TUBE TO GRAVITY. TUBE FEEDS INF @ 15ML/HR WITH H20 FLUSHES. ABD SOFT. SLIGHTLY DISTENDED. WILL CONTINUE TO MONITOR.
--- NOTE | 2020-11-02 18:57 | NUR ---
SHIFT SUMMARY PT CONTINUES TO BE INTUBATED AND SEDATED. VENT SETTINGS NOW AC14/450/12/100, STATS 87-92%, DR KAISER AWARE. PT PALE, CLAMMY AND DIAPHORETIC. AFEBRILE. PT HAS PICC LINE TO KASSANDRA WITH PROPOFOL INF @ 50MCG/KG/MIN, AMIO INF @ 0.5MG/HR, NEOSYNEPHRINE INF @ 20MCG/MIN, PRECEDEX INF @ 1.4MCG/KG/HR, NS @ KVO, FENTANYL @ 75MCG/HR. SPOT CHECK CBG 140S. SBP >100, HR SR 70S. WILLOUGHBY DRAINING DARK YELLOW URINE. TUBE FEEDS TO NG TUBE ING @ 15ML/HR. PT HAS 20G TO LEFT AC, SITE WNL. DRESSING NOT STICKING WELL DUE TO SKIN BEING MOIST. RECTAL TUBE DRAINING TO GRAVITY. WILL REPORT TO ONCOMING SHIFT.
--- NOTE | 2020-11-02 22:51 | NUR ---
ASSUMED CARE AT 1900 PT LAYING IN BED INTUBATED WITH VENT SETTINGS AC 14, TV 450, PEEP 12, FIO2 100%. PT IS NOTED TO BE BREATH STACKING, HIGH PEAK PREASURES, AND O2 SAT DECLINING TO LOW 80'S. DR KAISER CALLED AND DISCUSSED WITH JEYSON POND AND THIS RN, NO NEW ORDERS PROVIDED TO RN, JUST INSTRUCTION TO USE PRN ATIVAN AND FENTANYL ADJUNCT SEDATION. 4MG ATIVAN AND 100MCG FENTANYL GIVEN AND HELPFUL WITH BREATH STACKING. VENT SETTINGS CHANGED BY JEYSON POND TO PC 20, PEEP 15, FIO2 100%. O2 SAT NOW 88-91% DR KAISER UPDATED ABOUT VENT SETTINGS AND PT CONDITION. NSR WITH HR 80-90. AMIODERONE INFUSING AT 0.5MG/MIN AND IS TO BE DONE LATER THIS SHIFT; DR KAISER AWARE. SBP 100-130'S; DIXIE INFUSING AT 20MCG/MIN. VHP INFUSING VIA OG AT 15ML/HR (GOAL) WITH 30ML WATER FLUSHES Q4HR. WILLOUGHBY AND RECTAL TUBE PATENT AND DRAINING TO GRAVITY. PT RESPONDS TTO NOXOUS STIMULI AND OCCATIONALLY FOLLOWS DIRECTIONS; PROPOFOL INFUSING AT 50MCG/KG/MIN. PRECEDEX INFUSING AT 1.4MCG/KG/HR. FELTMAKER FENTANYL INFUSING AT 75MCG/HR. SEE SHIFT ASSESSMENT FOR FULL ASSESSMENT.
[2020-11-03 03:52] LABS: PCO2 Arterial 44.4 mmHg (35-45); PO2 Arterial 56.7 mmHg (80-100); pH Blood Arterial 7.44 (7.35-7.45)
[2020-11-03 03:58] LABS: BASOPHILS ABSOLUTE AUTO 0.12 K/mm3 (0.00-0.23); BASOPHILS PERCENT AUTO 1 % (0-2); EOSINOPHILS ABSOLUTE AUTO 0.02 K/mm3 (0.00-0.68); EOSINOPHILS PERCENT AUTO 0 % (0-6); Hematocrit 28.8 % (37.0-53.0); Hemoglobin 8.7 g/dL (13.5-17.5); IMMATURE GRAN ABSOLUTE AUTO 1.27 K/mm3 (0.00-0.10); IMMATURE GRAN PERCENT AUTO 8 % (0-1); LYMPHOCYTES ABSOLUTE AUTO 1.06 K/mm3 (0.84-5.20); LYMPHOCYTES PERCENT AUTO 7 % (21-46); MONOCYTES ABSOLUTE AUTO 1.44 K/mm3 (0.16-1.47); MONOCYTES PERCENT AUTO 9 % (4-13); Mean Corpuscular HGB 25.7 pg (26.0-34.0); Mean Corpuscular HGB Conc 30.2 g/dL (31.5-36.5); Mean Corpuscular Volume 85 fL (80-100); Mean Platelet Volume 10.9 fL (9.1-12.4); NEUTROPHILS ABSOLUTE AUTO 12.16 K/mm3 (1.96-9.15); NEUTROPHILS PERCENT AUTO 76 % (41-73); Platelet Count 161 K/mm3 (150-400); RDW Coefficient Variation 18.9 % (11.7-14.2); RDW Standard Deviation 58.6 fL (35.1-46.3); Red Blood Cell Count 3.38 M/mm3 (4.30-5.90); White Blood Cell Count 16.07 K/mm3 (4.00-11.30)
[2020-11-03 04:12] LABS: Anion Gap 6 mmol/L (6-16); Blood Urea Nitrogen 22 mg/dL (8-24); CO2, Blood 32 mmol/L (21-32); Calcium, Blood 8.2 mg/dL (8.5-10.1); Chloride, Blood 105 mmol/L (98-108); Creatinine, Blood 0.82 mg/dL (0.60-1.20); Glomerular Filtration Rate >60 (60-); Glucose, Blood 138 mg/dL (70-99); Potassium, Blood 4.3 mmol/L (3.5-5.5); Sodium, Blood 143 mmol/L (136-145)
[2020-11-03 05:00] LABS: BAND PERCENT MAN 1 % (0-8); BASOPHILS ABSOLUTE MAN 0.16 K/mm3 (0.00-0.23); BASOPHILS PERCENT MAN 1 % (0-2); EOSINOPHILS PERCENT MAN 0 % (0-6); LYMPHOCYTES ABSOLUTE MAN 1.12 K/mm3 (0.84-5.20); LYMPHOCYTES PERCENT MAN 7 % (21-46); METAMYELOCYTE ABSOLUTE MAN 0.32 K/mm3 (0.00-0.00); METAMYELOCYTE PERCENT MAN 2 % (0-0); MONOCYTES ABSOLUTE MAN 0.96 K/mm3 (0.16-1.47); MONOCYTES PERCENT MAN 6 % (4-13); NEUTROPHILS ABSOLUTE MAN 13.33 K/mm3 (1.96-9.15); PROMYELOCYTE ABSOLUTE MAN 0.16 K/mm3 (0.00-0.00); PROMYELOCYTE PERCENT MAN 1 % (0-0); SEG NEUTROPHILS PERCENT MAN 82 % (41-73); TOTAL CELLS COUNTED 100
--- NOTE | 2020-11-03 06:21 | NUR ---
END OF SHIFT SUMMARY PT CONT TO BE INTUBATED WITH VENT SETTINGS AC 14, PC 20, PEEP 15, FIO2 100%. PT FREQUENTLY BREATH STACKS BUT 02 SAT HAVE REMAINED ABOVE 90% WITH CURRENT VENT SETTINGS. PRN ATIVAN AND FENTANYL HELP DECREASE BREATH STACKING. PT OCCATIONALLY TRIES TO OPEN EYES WITH REPOSITIONING AND TALKING IN THE ROOM; PT ALBE TO FOLLOW MINIMAL COMMANDS. PROPOFOL INFUSING AT 50MCG/KG/MIN. PRECEDEX INFUSING AT 1.4MCG/KG/HR. FENTANYL INFUSING AT 75MCG/HR. NSR WITH HR 60-70 ALL SHIFT; AMIODERONE STOPPED AT 0145. SBP 100-140'S; DIXIE INFUSING AT 20MCG/MIN. VHP INFUSING AT 15ML/HR WITH 30ML WATER FLUSHES Q4HR. WILLOUGHBY AND RECTAL TUBE PATENT AND DRAINING TO GRAVITY; RECTAL TUBE BAG CHANGED THIS SHIFT. WILL REPORT TO AM RN WHEN AVAILABLE.
--- NOTE | 2020-11-03 07:45 | NUR ---
PT RECEIVED FROM [facility] SHIFT, SLEEPING. AWAKENS TO VOICE, FOLLOWS COMMANDS, SATS DROPPING IN THE 80'S, MEDICATED WITH FENTANYL AND ATIVAN FOR COMFORT. ATTEMPT TO REPOSITION, NO CHANGE. CALL TO , ORDER TO GIVE ADDITIONAL ATIVAN. R/T HERE, GIVING TREATEMENT AND CPT. NO CHANGES.
--- NOTE | 2020-11-03 10:04 | NUR ---
IN WITH PATIENT, SATS REMAIN LOW, DROPPING NOW IN TO THE 70'S. SUCTIONED, LAVAGED, NO RETURN. REPOSITIONED SITTING UP STRAIGHTER, CALL TO DR. PRESTON, NO NEW ORDERS. CALLED MOM WITH UPDATE, HAVE ASKED HER TO COME IN. PT MEDICATED. NOT TURNED AT THIS TIME D/T SATS.
--- NOTE | 2020-11-03 10:09 | NUR ---
Pt resting in bed and is intubated. Spoke with Dr Echols, Bedside MONICA Mcconnell, discussed case and prognosis. Pt is requiring significant vent support with 100% FIO2. Discussion with Pt's mother may be beneficial regarding goals of care. Called and spoke with Pt's mother Summer. Provided update and engaged in therapeutic discussion of the possibility of needing to make a decision regarding Pt's goals of care. Answered question and listened to concerns. Summer reports Pt is a and may have an AD at the [facility]. Summer reports plan to visit Pt during visitor hours. Spoke with MONICA Mcconnell who reports O2 saturations are decreasing. Family may benefit from visiting sooner. Called Pt's mother Summer and discussed further regarding Pt's condition. Summer and Bartolome (Pt's father) will arrive around 11:00-11:30. Palliative Care will remain available.
--- NOTE | 2020-11-03 10:33 | NUR ---
PT UNABLE TO MAINTAIN SATS >88% ON AIRVO, TOLD HIM IT WAS TIME TO GO BACK ON BIPAP, HE COMPLIED. SATS TO 93%
--- NOTE | 2020-11-03 12:12 | NUR ---
Family has arrived to visit with Pt. Pt resting in bed and is intubated. Bedside RNs providing medications and preparing to prone Pt. Pt's mother Summer at bedside. Offered emotional support as she is intermittently tearful. Engaged in therapeutic discussion regarding Pt's condition and the importance of considering wishes for code status. Summer reports Pt would not want CPR in his current condition. Continued therapeutic listening and discussed Pt's advanced directive. Mother escorted to ICU waiting room in order for Pt to be repositioned. Film Coatershae Whitfield present and offering aditional support. Spoke with Dr Echols. Place new code status of DNR per V/O from Dr Echols. Palliative Care will remain available for supportive and therapeutic visits.
--- NOTE | 2020-11-03 12:42 | NUR ---
1115-PARENTS IN TO SEE SOLE. DR. RUSS IN TO SHARE INFORMATION ABOUT HIS CONDITION AND ASK WHAT SOLE WOULD WANT. LENGTHY DISCUSSION, AGREE TO THE PARALYZING AND PRONING. CONSIDERING ECMO. PASTORAL AND PALLIATIVE CARE IN TO TALK AND COMFORT PARENTS. SOLE PLACED ON BIS MONITOR, BONY PROMINENCES PADDED, TOF CONFIRMED. NIMBEX GTT STARTED, MEDICATED WITH FENTANYL AND ATIVAN, TURNED PRONE, 3 RN'S AND R/T. PT TOLERATED WELL. SATS IMPROVING TO LOW 90'S, HR STABLE, BP STABLE. NEOSYNEPHRINE AT 10, NIMBEX AT 2, PROPOFOL AT 50, PRECEDEX AT 1.4, TKO X 2. SALINE LOCK IN LEFT WRIST. PT HAS BEEN MADE DNR BY PARENTS. TITRATING NEEDED FOR PARALYSIS ON NIMBEX.
--- NOTE | 2020-11-03 13:06 | NUR ---
ASSISTED WITH PRONING OF PT @ APROX 1200. ONCE PT PLACED IN PRONE POSITION IT WAS NOTED THAT THERE WAS EXTRA LARGE AMOUNT OF CLEAR SECRETIONS FOLLOWED BY A MODERATE AMOUNT OF WHAT APPEARED TO BE LIQUACEL IT APPEARED PURPLE IN COLOR. ISAIAH PABLO AND DR. RUSS AWARE. PT PARENTS AT BEDSIDE AT THIS TIME.
--- NOTE | 2020-11-03 13:17 | NUR ---
DR. RUSS AT BEDSIDE-I TIME DECREASED TO 1 AND PEEP DECREASED TO 10-SPO2 95%. MAP TRENDING LESS THAN 60-TITRATED NEOSYNEPHRINE UP TO 25MCG.
--- NOTE | 2020-11-03 15:42 | NUR ---
PT REPOSITIONED IN PRONE, TOF 4/4 ON NIMBEX 2.5, PROPOFOL @50MCG/KG/HR, PRECEDEX @1.4, LOTS OF ORAL SECRETIONS THAT LOOK COFFEE GROUND CONTINUE, OG PUT TO INTERMITTENT SUCTION. AWARE.
--- NOTE | 2020-11-03 16:09 | NUR ---
Spiritual care note: I met with Jw's parents at bedside. Dad is clearly overwhelmed and left room. Mom, Summer, held on to me and appeared comforted by my presence. Provided anticipatory bereavement alcohol and drug counselor and theraputic listening to good effect. Summer is struggling with "decision" going forward in the face of medical futility. She appears to understand outlook is dire. Physician checking for potential xfer to [facility] for ECMO. I will remain available.
--- NOTE | 2020-11-03 17:31 | NUR ---
SOLE BEGAN THE SHIFT WITH SATURATIONS IN THE 80'S AND DECLINING. HIS LUNG SOUNDS WERE DECREASED THROUGHOUT, NOT ABLE TO GET HIM TO COME UP WITH ANY INTERVENTIONS. DR. RUSS AWARE, PHONE CALL MADE TO FAMILY BY PALIATIVE CARE TO UPDATE. THE FAMILY CAME IN TO TALK WITH DR. RUSS AND MAKE DECISIONS. DECISIONS WERE MADE TO PARALYZE PATIENT AND PRONE PATIENT. SINCE THE PARALYTIC, SATS HAVE COME UP TO 90%, TOLERATING PRONE POSITION. HE IS CLAMMY AND DIAPHORETIC FROM TORSO UP, HE HAS HAD COPIOUS AMOUNTS OF SECRETIONS ORALLY AND THE OG WAS PUT TO INTERMITTENT SUCTION WITH COFFEE GROUND RETURN. ALL ORAL/TUBE MEDS CURRENTLY HELD PER . WILLOUGHBY CONTINUES TO DRAIN WITHOUT ANY PROBLEMS. RECTAL TUBE WITH 200ML OUTPUT. MOM WITH PATIENT MOST OF AFTERNOON.
--- NOTE | 2020-11-03 19:00 | NUR ---
ASSUMED CARE NOTE: ASSUMED CARE OF PT AT 1900, RECEVIED REPORT FROM LEDY ANDERSON. PT IS INTUBATED/SEDATED/PARALIZED. VENT SETTINGS AC/PC 20/5/80% PT SEDATED WITH 50MCG/KG/MIN OF PROPOFOL, PRECEDEX 1.4MCG/KG/HR. FENTANYL AT 75MCG/HR. PT PARALIZED WITH NIMBEX 2.5MCG/KG/MIN, TOF 4/4. PT CONTINUES TO BE PRONED, UNTIL 0000. RT CALLED TO BEDSIDE TO TURN HEAD. PT IN SINUS RHYTHM WITH HR IN THE 70'S. OGT TO LIS , COFFEE GROUND DRAINAGE NOTED. WILL HOLD TUBE FEED AND PT MEDS UNTIL FURTHER INSTRUCTION. PROTONIX DRIP STARTED. FOELY DRAINING TO GRAVITY, CLEAR, YELLOW. RECTAL TUBE DRAINING TO GRAVITY, BROWN LIQUID STOOL NOTED. WILL CONTINUE TO MONITOR PT T/O SHIFT.
--- NOTE | 2020-11-04 | NUR ---
UPDATE: PT UNPRONED 5 STAFF MEMBERS, INCLUDING RT TO MANAGE VENT. PT PLACED ON 100% FiO2 BEFORE PLACING PT ON SUPINE. NO COMPLICATIONS NOTED. PT SPO2 AFTER PRONING WAS 93% ORAL CARE PROVIDED AND BEDBATH COMPLETE.
[2020-11-04 03:56] LABS: BASOPHILS ABSOLUTE AUTO 0.12 K/mm3 (0.00-0.23); BASOPHILS PERCENT AUTO 1 % (0-2); EOSINOPHILS ABSOLUTE AUTO 0.02 K/mm3 (0.00-0.68); EOSINOPHILS PERCENT AUTO 0 % (0-6); Hematocrit 29.7 % (37.0-53.0); Hemoglobin 8.8 g/dL (13.5-17.5); IMMATURE GRAN ABSOLUTE AUTO 1.25 K/mm3 (0.00-0.10); IMMATURE GRAN PERCENT AUTO 8 % (0-1); LYMPHOCYTES PERCENT AUTO 6 % (21-46); MONOCYTES ABSOLUTE AUTO 0.91 K/mm3 (0.16-1.47); MONOCYTES PERCENT AUTO 6 % (4-13); Mean Corpuscular HGB 26.2 pg (26.0-34.0); Mean Corpuscular HGB Conc 29.6 g/dL (31.5-36.5); Mean Corpuscular Volume 88 fL (80-100); Mean Platelet Volume 10.3 fL (9.1-12.4); NEUTROPHILS ABSOLUTE AUTO 12.56 K/mm3 (1.96-9.15); NEUTROPHILS PERCENT AUTO 80 % (41-73); NRBC ABSOLUTE 0.02 K/mm3 (0.00-0.02); NRBC Auto 0.1 /100 WBC (0.0-0.2); Platelet Count 157 K/mm3 (150-400); Red Blood Cell Count 3.36 M/mm3 (4.30-5.90); White Blood Cell Count 15.76 K/mm3 (4.00-11.30)
[2020-11-04 04:13] LABS: Alanine Aminotransfer (ALT/SGP 17 U/L (12-78); Albumin, Blood 1.8 g/dL (3.4-5.0); Albumin/Globulin Ratio 0.3 (0.8-1.8); Alk Phos 117 U/L (50-136); Anion Gap 1 mmol/L (6-16); Aspartate Aminotrans (AST/SGOT 15 U/L (12-37); Bilirubin, Total 0.4 mg/dL (0.1-1.0); Blood Urea Nitrogen 22 mg/dL (8-24); Bun/Creatinine Ratio 26.5 (12.0-20.0); CO2, Blood 34 mmol/L (21-32); Calcium, Blood 8.2 mg/dL (8.5-10.1); Chloride, Blood 105 mmol/L (98-108); Creatinine, Blood 0.83 mg/dL (0.60-1.20); Globulin, Blood 5.3 g/dL (2.2-4.0); Glomerular Filtration Rate >60 (60-); Glucose, Blood 154 mg/dL (70-99); Magnesium, Blood 2.4 mg/dL (1.6-2.4); Phosphorus, Blood 3.5 mg/dL (2.5-4.9); Potassium, Blood 5.8 mmol/L (3.5-5.5); Sodium, Blood 140 mmol/L (136-145); Total Protein, Blood 7.1 g/dL (6.4-8.2)
[2020-11-04 04:21] LABS: BAND PERCENT MAN 2 % (0-8); BASOPHILS PERCENT MAN 0 % (0-2); EOSINOPHILS PERCENT MAN 0 % (0-6); LYMPHOCYTES ABSOLUTE MAN 0.94 K/mm3 (0.84-5.20); LYMPHOCYTES PERCENT MAN 6 % (21-46); METAMYELOCYTE ABSOLUTE MAN 0.63 K/mm3 (0.00-0.00); METAMYELOCYTE PERCENT MAN 4 % (0-0); MONOCYTES ABSOLUTE MAN 0.15 K/mm3 (0.16-1.47); MONOCYTES PERCENT MAN 1 % (4-13); NEUTROPHILS ABSOLUTE MAN 14.02 K/mm3 (1.96-9.15); SEG NEUTROPHILS PERCENT MAN 87 % (41-73); TOTAL CELLS COUNTED 100
[2020-11-04 04:52] LABS: pH Blood Arterial 7.29 (7.35-7.45)
[2020-11-04 04:53] LABS: PCO2 Arterial 70.2 mmHg (35-45)
--- NOTE | 2020-11-04 06:26 | NUR ---
UPDATE: PT REPOSITIONED TO RIGHT SIDE, PT BECAME TO HAVE LOW TV 277, CALLED RT TO BEDSIDE. BREATHING TREATMENT INITIATED, PT COARSE T/O.
--- NOTE | 2020-11-04 06:36 | NUR ---
CALLED JEB REGARING LOW MINUTE VENTILATION AND LOW TV. RT INCREASED INSPRIATORY PRESSURE TO 25, PEAK PRESSURE INCREASED TO 34. PHYSICAN IS AWARE OF CURRENT STATUS.
--- NOTE | 2020-11-04 06:38 | NUR ---
SHIFT SUMMARY : SEE PREVIOUS NOTES. PT CONTINUES TO BE PARALYZED WITH NIMBEX AT 3MCG/KG/MIN, TOF 4/4. PT VENT SETTINGS AC/PC 20, FiO2 100%, PEEP 10. TIDAL VOLUMES INCREASED FROM 270 TO 340 WITH INSPIATORY PRESSURE CHANGED TO 25. PT CONTINUES TO BE SEDATED WITH PROPOFOL AT 50MCG/KG/MIN, FENTANYL AT 75MCG/HR, PRECEDEX AT 1.4MCG/KG/HR. PT IN SR WITH HR IN THE 70-80'S. BP STABLE WITH DIXIE AT 25MCG/MIN. OGT TO LIS, 700ML OF COFFEE GROUND DRAINAGE NOTED. [place] PATENT AND DRAINING TO GRAVITY. RECTAL TUBE TO GRAVITY, VERY MINIMAL OUTPUT, POSSIBLE DC THIS AM. PT HAS BEEN VERY DIAPHORETIC THIS SHIFT, UNABLE TO CONNECT BIS MONITOR, POOR READINGS. WILL CONTINUE TO MONTIOR PT UNTIL REPORT IS GIVEN TO ONCOMING SHIFT.
[2020-11-04 11:14] LABS: PCO2 Arterial 71.5 mmHg (35-45); PO2 Arterial 64.8 mmHg (80-100); pH Blood Arterial 7.29 (7.35-7.45)
--- NOTE | 2020-11-04 12:00 | NUR ---
PT INTUBATED, SEDATED, AND PARALYZED WITH NIMBEX. BIS MONITOR IS READING 30 AND TOF 3/4. PT WAS ON PROPOFOL, FENTANYL GTT, AND PRECEDEX THIS AM. PRECEDEX WAS TURNED OFF PER DR. RUSS. DR. RUSS DID NOT WANT A VACATION FROM SEDATION OR NIMBEX. USING ATIVAN IN CONJUNCTION FOR SEDATION. WILL BE PRONING PT TODAY. DR. RUSS PLACED A-LINE TO L WRIST TO MONITOR ABG. GOOD WAVEFORM. NEOSYNEPHERINE WAS STOPPED WELL. OG TUBE IS PUTTING OUT GREEN/BROWN LIQUID. DR. RUSS WANTS TO KEEP PT ON PROTONIX GTT FOR NOW. MAY RESTART TUBE FEEDS TODAY.
--- NOTE | 2020-11-04 13:15 | NUR ---
Pt resting in bed upon arrival. Pt just repositioned to prone prior to visit. Pt remains intubated at this time. Discussed case with Bedside RN Anali and internist Froy. Called and spoke with Pt's mother Summer. Provided update and therapeutic listening. Plan for Summer and Summer's daughter to visit today. Palliative Care will remain available supportive and therapeutic visits.
--- NOTE | 2020-11-04 19:01 | NUR ---
SUMMARY PT INTUBATED, SEDATED, AND PARALYZED FOR VENT COMPLIANCE. BIS MONITOR READING 30-40. USING ATIVAN AND FENTANYL PUSHES IN CONJUNCTION FOR SEDATION. THIS AM PT WAS PROFUSELY SWEATING AND AFTER MORE SEDATION WAS GIVEN THAT STOPPED. DR. RUSS DID NOT WANT SEDATION OR NIMBEX VACATION TODAY DUE TO INCREASED FIO2 DEMANDS AND PT IS DIFFICULT TO SEDATE. A-LINE WAS PLACED TODAY. NEOSYNEPHERINE WAS STOPPED THIS AM. NOW PT IS HYPERTENSIVE. GIVING LABETOLOL AND HYDRALAZINE PRN. ALSO GIVING SEDATION TO KEEP BIS AROUND 30. TOF HAS BEEN 3/[address] RUSS OK'D TUBE FEEDING TO RESTART AND XARELTO TO BE GIVEN. NO COFFEE GROUND EMESIS TODAY. TO CONTINUE PROTONIX GTT. MOM AND SISTER CAME IN TODAY TO SEE PT AND WERE UPDATED.
--- NOTE | 2020-11-04 22:34 | NUR ---
ASSUMED PT CARE FROM MONICA MERCADO AT 1900 PT INTUBATED, SEDATED, AND PARALYZED. PROPOFOL AT 60MCG/KG/MIN, FENTANYL AT 75MCG/HR, AND NIMBEX AT 3MCG/KG/MIN INFUSING VIA PICC TO RIGHT UPPER ARM. VENT SETTINGS AC 20, VT 340, PEEP 10, FIO2 80%. PT IS SYNCHRONISE WITH THE VENT. PROTONIX INFUSING VIA LEFT HAND IV THAT WAS NOT PATENT UPON ASSESSMENT; THEREFORE PROTONIX IS ON STANDBY AND IV PULLED. ARTERIAL LINE TO RIGHT RADIAL SITE; ZERO'D WITH SBP'S >180. BIS MONITOR READING 45. TRAIN OF FOUR 01/25. MEDICATED BP WITH HYDRALAZINE 10MG AND ADMINISTERED 2MG OF VERSED WITH NO EFFECT ON BP. THEREFORE, CALLED DR. RUSS IN REGARDS SBP 220. NEW ORDERS TO RESTART PRECEDEX WITH ALLOWED MAX DOSE AT 1.4MCG/KG/HR. ALSO INFORMED DR. RUSS REGARDING PROTONIX ON STANDBY D/T LOSING IV ACCESS. INFORMED HIM THAT PT IS STILL IN THE PRONE POSITION; THEREFORE, MAKING IT VERY DIFFICULT TO OBTAIN IV ACCESS. ORDERS TO HOLD OFF ON THE PROTONIX UNTIL PT IS SUPINE AGAIN. ONCE IV ACCESS IS OBTAINED, RESTART THE PROTONIX; HOWEVER, ONCE BAG IS COMPLETE, DICONTINUE AND HE WILL ADDRESS IN THE MORNING. TUBE FEED REMAINS ON HOLD D/T PT BEING IN THE PRONE POSITION; OG HOOKED TO LOW INTERMITTENT SUCTION WITH GREEN/BROWN OUTPUT NOTED. WILLOUGHBY CATHETER IS PATENT AND DRAINING CLEAR, YELLOW URINE TO GRAVITY. WILL CONTINUE TO MONITOR.
--- NOTE | 2020-11-04 23:32 | NUR ---
RHYTHM CHANGE PT NOTED TO BE AFIB WITH RVR; HR 130'S-140'S. EKG OBTAINED. CALLED DR. RUSS WITH ORDERS FOR AMIODARONE 150MG BOLUS FOLLOWED BY 1MG/HR X18 HOURS.
[2020-11-05 04:39] LABS: BASOPHILS ABSOLUTE AUTO 0.15 K/mm3 (0.00-0.23); BASOPHILS PERCENT AUTO 1 % (0-2); EOSINOPHILS ABSOLUTE AUTO 0.01 K/mm3 (0.00-0.68); EOSINOPHILS PERCENT AUTO 0 % (0-6); Hematocrit 30.5 % (37.0-53.0); IMMATURE GRAN ABSOLUTE AUTO 1.55 K/mm3 (0.00-0.10); IMMATURE GRAN PERCENT AUTO 8 % (0-1); LYMPHOCYTES ABSOLUTE AUTO 1.22 K/mm3 (0.84-5.20); LYMPHOCYTES PERCENT AUTO 6 % (21-46); MONOCYTES ABSOLUTE AUTO 1.37 K/mm3 (0.16-1.47); MONOCYTES PERCENT AUTO 7 % (4-13); Mean Corpuscular HGB 26.2 pg (26.0-34.0); Mean Corpuscular HGB Conc 29.5 g/dL (31.5-36.5); Mean Corpuscular Volume 89 fL (80-100); Mean Platelet Volume 10.5 fL (9.1-12.4); NEUTROPHILS ABSOLUTE AUTO 15.35 K/mm3 (1.96-9.15); NEUTROPHILS PERCENT AUTO 78 % (41-73); Platelet Count 232 K/mm3 (150-400); RDW Coefficient Variation 19.2 % (11.7-14.2); RDW Standard Deviation 62.4 fL (35.1-46.3); Red Blood Cell Count 3.43 M/mm3 (4.30-5.90); White Blood Cell Count 19.65 K/mm3 (4.00-11.30)
[2020-11-05 05:06] LABS: Anion Gap 3 mmol/L (6-16); Blood Urea Nitrogen 30 mg/dL (8-24); Bun/Creatinine Ratio 38.2 (12.0-20.0); CO2, Blood 33 mmol/L (21-32); Calcium, Blood 8.5 mg/dL (8.5-10.1); Chloride, Blood 102 mmol/L (98-108); Creatinine, Blood 0.79 mg/dL (0.60-1.20); Glomerular Filtration Rate >60 (60-); Glucose, Blood 162 mg/dL (70-99); Magnesium, Blood 2.5 mg/dL (1.6-2.4); Phosphorus, Blood 4.4 mg/dL (2.5-4.9); Potassium, Blood 5.5 mmol/L (3.5-5.5); Sodium, Blood 138 mmol/L (136-145)
--- NOTE | 2020-11-05 05:28 | NUR ---
END OF SHIFT SUMMARY NO SIGNIFICANT CHANGES SINCE LAST ENTRY. PROPOFOL REMAINS AT 60MCG/KG/MIN, PRECEDEX AT 1.4MCG/KG/HR, FENTANYL AT 75MCG/HR; BIS READING 45-55. AMIODARONE REMAINS AT 1MG/MIN WITH PT BACK IN NSR; HR 50-60'S. BP'S REMAIN STABLE AT THIS TIME; HOWEVER, NEOSYNEPHRINE IS AT 50MCG/MIN WITH SBP'S 100-110; MAP'S >65. ARTERIAL LINE REMAINS CDI TO RIGHT RADIAL ARTERY; TRANSDUCER AT PHLEBOSTATIC AXIS AND HAS BEEN ZERO'D. PROTONIX GTT HAS COMPLETED ITS INFUSION AND REMAINS OFF PER DR. GARCÍA T/O ORDERS. VENT SETTINGS AC 20, VT 340, PEEP 10, FIO2 80%; BIOX >90%. RECTAL TUBE PULLED THIS SHIFT D/T NO OUTPUT X24 HOURS; ADMINISTERED SENOKOT PER ORDERS. WILLOUGHBY CATHETER REMAINS PATENT AND DRAINING LARGE AMOUNTS OF CLEAR YELLOW URINE TO GRAVITY. TUBE FEEDING RESTARTED AFTER PT TURNED BACK INTO THE SUPINE POSITION; VITAL HIGH PROTEIN AT GOAL OF 15MLS/HR WITH NO RESIDUALS NOTED. WILL CONTINUE TO MONITOR UNTIL REPORT IS HANDED OFF TO ONCOMING RN.
[2020-11-05 05:30] LABS: BAND PERCENT MAN 3 % (0-8); BASOPHILS ABSOLUTE MAN 0.19 K/mm3 (0.00-0.23); BASOPHILS PERCENT MAN 1 % (0-2); EOSINOPHILS PERCENT MAN 0 % (0-6); LYMPHOCYTES ABSOLUTE MAN 0.78 K/mm3 (0.84-5.20); LYMPHOCYTES PERCENT MAN 4 % (21-46); METAMYELOCYTE ABSOLUTE MAN 0.39 K/mm3 (0.00-0.00); METAMYELOCYTE PERCENT MAN 2 % (0-0); MONOCYTES ABSOLUTE MAN 0.58 K/mm3 (0.16-1.47); MONOCYTES PERCENT MAN 3 % (4-13); NEUTROPHILS ABSOLUTE MAN 17.68 K/mm3 (1.96-9.15); SEG NEUTROPHILS PERCENT MAN 87 % (41-73); TOTAL CELLS COUNTED 100
--- NOTE | 2020-11-05 07:30 | NUR ---
ASSUMED CARE BEDSIDE REPORT FROM AUDIE ANDERSON. PT INTUBATED, SEDATED, PARALYZED. VENT SETTINGS AC 20/340/10/80%. PROPOFOL GTT 60 MCG/KG/MIN, PRECEDEX 1.4 MCG/KG/HR, FENTANYL 75 MCG/HR. BIS MONITOR 45-50. NIMBEX 3 MCG/KG/MIN, TOF 4/4. PT SYNCHRONOUS c VENT. LUNGS CLEAR. SCANT SECRETIONS THOUGH ETT. PHENYLEPHRINE GTT FOR MAP >65. AMIODORONE GTT 1 MCG/MIN. SB ON MONITOR, RATE 50'S. ABD ROUND, SOFT, BTX 4. VHP AT GOAL OF 15 ML/HR c 30 ML FLUSHES q4 HR. NO RESIDUALS THIS AM. WILLOUGHBY PATENT, DRAINING CLEAR YELLOW URINE TO GRAVITY. PICC TO KELLY MCKEON, C/D/I. WILL CONTINUE TO MONITOR.
--- NOTE | 2020-11-05 08:52 | NUR ---
DR RUSS ROUND AMIODORONE AND NIMBEX PLACED ON STANDBY. PT NSR, RATE 50'S. PHENYLEPHRINE 40 MCG/MIN. PLAN TO ATTEMPT TO TITRATE PRECEDEX DOWN THIS SHIFT. BIS 40-50'S. WILL CONTINUED PRONING AT 1200 UNTIL 0000.
--- NOTE | 2020-11-05 10:00 | NUR ---
PARALYTIC VACATION NIMBEX PLACED ON STANDBY FOR APPROX 1 HOUR. PT BEGAN DOUBLE STACKING ON VENT. O2 SATS DECREASED TO 84-86%. DR RUSS NOTIFIED. PT UNRESPONSIVE TO PAINFUL STIMULI. RESTARTED NIMBEX ORDERED.
--- NOTE | 2020-11-05 12:26 | NUR ---
Supportive visit this afternoon Spoke with Bedside RN Tierney and discussed case. No changes in Pt's condition. Plan for proning soon. Pt's mother and daughter at bedside. Offered supoortive visit and therapeutic listening. Mother Summer reports Pt's father is not emotionaly handling situation well. Daughter requests a list of counselors. Instructed this RN will investigate. Will attempt to locate resources.
--- NOTE | 2020-11-05 18:01 | NUR ---
Patient remains intubated, on precedex 1.4 mcg/kg, propofol 60 mcg/kg, fentanyl 75mcg and nimbex 3mcg/kg. Train of 4 still 4/4. BP's remain stable, Urine output good, no BM today, skin remains intact. Tube feeding turned off for 1 hour d/t high residual. Restarted at 15ml/hr at 13:00 am, to be titrated up 10 ml every 8 hours for a goal of 50ml per insulation nozzleman order. Patient put in prone position at 1400 and will remain for 12 hours per MD order. MD spoke to Mother and sister of patient and no changes to care at this time.
--- NOTE | 2020-11-05 19:17 | NUR ---
ASSUMED PT CARE AT 1900 FROM MONICA TOLLIVER PT REMAINS INTUBATED, SEDATED, AND PARALYZED. VENT SETTINGS UNCHANGED AT AC 20, VT 340, PEEP 10, FIO2 80%; BIOX >90%. PROPOFOL AT 60MCG/KG/MIN, PRECEDEX AT 1.4 MCG/KG/HR, FENTANYL AT 75MCG/HR, AND NIMBEX AT 3MCG/KG/MIN. NEOSYNEPHRINE ON STANDBY. PT IS NSR; HR 60'S. SBP LOW 100'S; MAP'S >65. VITAL HIGH PROTEIN AT 15MLS/HR; GOAL IS 50MLS/HR. PT REMAINS PRONED; PLAN TO UNPRONE AT 0200. WILLOUGHBY CATHETER REMAINS PATENT AND DRAINING TO GRAVITY. PICC LINE TO RIGHT UPPER EXTREMITY; 20G TO LEFT AC AND 20G TO LEFT FOREARM. ARTERIAL LINE TO RIGHT RADIAL ARTERY; TRANSDUCER AT PHLEBOSTATIC AXIS AND HAS BEEN ZERO'D.
[2020-11-06 04:19] LABS: BASOPHILS ABSOLUTE AUTO 0.07 K/mm3 (0.00-0.23); BASOPHILS PERCENT AUTO 1 % (0-2); EOSINOPHILS ABSOLUTE AUTO 0.01 K/mm3 (0.00-0.68); EOSINOPHILS PERCENT AUTO 0 % (0-6); Hematocrit 28.2 % (37.0-53.0); Hemoglobin 8.3 g/dL (13.5-17.5); IMMATURE GRAN ABSOLUTE AUTO 0.67 K/mm3 (0.00-0.10); IMMATURE GRAN PERCENT AUTO 5 % (0-1); LYMPHOCYTES PERCENT AUTO 9 % (21-46); MONOCYTES ABSOLUTE AUTO 0.87 K/mm3 (0.16-1.47); MONOCYTES PERCENT AUTO 6 % (4-13); Mean Corpuscular HGB 26.2 pg (26.0-34.0); Mean Corpuscular HGB Conc 29.4 g/dL (31.5-36.5); Mean Corpuscular Volume 89 fL (80-100); Mean Platelet Volume 10.5 fL (9.1-12.4); NEUTROPHILS ABSOLUTE AUTO 10.89 K/mm3 (1.96-9.15); NEUTROPHILS PERCENT AUTO 79 % (41-73); Platelet Count 204 K/mm3 (150-400); RDW Coefficient Variation 18.5 % (11.7-14.2); RDW Standard Deviation 60.6 fL (35.1-46.3); Red Blood Cell Count 3.17 M/mm3 (4.30-5.90); White Blood Cell Count 13.71 K/mm3 (4.00-11.30)
[2020-11-06 04:36] LABS: Anion Gap 1 mmol/L (6-16); Blood Urea Nitrogen 29 mg/dL (8-24); CO2, Blood 39 mmol/L (21-32); Calcium, Blood 8.5 mg/dL (8.5-10.1); Chloride, Blood 102 mmol/L (98-108); Creatinine, Blood 0.69 mg/dL (0.60-1.20); Glomerular Filtration Rate >60 (60-); Glucose, Blood 156 mg/dL (70-99); Magnesium, Blood 2.1 mg/dL (1.6-2.4); Potassium, Blood 4.5 mmol/L (3.5-5.5); Sodium, Blood 142 mmol/L (136-145)
[2020-11-06 04:41] LABS: BAND PERCENT MAN 3 % (0-8); BASOPHILS ABSOLUTE MAN 0.13 K/mm3 (0.00-0.23); BASOPHILS PERCENT MAN 1 % (0-2); EOSINOPHILS PERCENT MAN 0 % (0-6); LYMPHOCYTES ABSOLUTE MAN 0.68 K/mm3 (0.84-5.20); LYMPHOCYTES PERCENT MAN 5 % (21-46); METAMYELOCYTE ABSOLUTE MAN 0.27 K/mm3 (0.00-0.00); METAMYELOCYTE PERCENT MAN 2 % (0-0); MONOCYTES ABSOLUTE MAN 0.68 K/mm3 (0.16-1.47); MONOCYTES PERCENT MAN 5 % (4-13); NEUTROPHILS ABSOLUTE MAN 11.92 K/mm3 (1.96-9.15); SEG NEUTROPHILS PERCENT MAN 84 % (41-73); TOTAL CELLS COUNTED 100
--- NOTE | 2020-11-06 06:20 | NUR ---
END OF SHIFT SUMMARY VENT SETTINGS REMAIN UNCHANGED; HOWEVER, FIO2 DOWN TO 75% WITH BIOX >90%. PROPOFOL REMAINS AT 60MCG/KG/MIN, PRECEDEX 0.5MCG/KG/HR, FENTANYL AT 75MCG/HR. NEOSYNEPHRINE TURNED OFF THIS MORNING; PT'S SBP'S 90-100'S. PT REMAINED IN NSR T/O SHIFT WITH HR 50-70'S. NIMBEX REMAINS ON AT 3MCG/KG/MIN; TRAIN OF FOUR 4/4; BIS 45-55. SYNCHRONISE WITH THE VENT. ADDITIONAL ATIVAN PUSHES NEEDED FOR BIS >55. PT UNPRONED AT 0200; TOLERATED WELL. LUNG SOUNDS APPEAR MORE CLEAR. SCANT AMOUNTS OF THIN, CLEAR SPUTUM OUT. VITAL HIGH PROTEIN INFUSING AT 35MLS/HR; GOAL IS 50MLS/HR. WILLOUGHBY CATHETER IN PLACE AND DRAINING TO GRAVITY; CLEAR, YELLOW. PICC LINE TO RIGHT UPPER ARM; DRESSING IS CDI. WILL CONTINUE TO MONITOR UNTIL REPORT IS HANDED OFF TO ONCOMING RN.
--- NOTE | 2020-11-06 10:11 | NUR ---
Pt remains intubated. Discussed case with Bedside RN Tierney. No change in Pt's condition. Family been visiting with Pt daily. Will attempt to visit with family today during visitor hours. Palliative Care will remain available.
[2020-11-06 10:12] LABS: PCO2 Arterial 82.2 mmHg (35-45); PO2 Arterial 74.9 mmHg (80-100); pH Blood Arterial 7.28 (7.35-7.45)
--- NOTE | 2020-11-06 10:44 | NUR ---
Assumed care of patient at 0700. Patient in afib, called Dr Marquez for orders. Lopressor ordered 2.5 and another if BP tolerates in 5 min. Both doses given, with BP tolerating. Heart rate reduced from 160's to 130's but still in afib. MD considering cardizem. Patient converted to NS at 0944 with no other interventions.
--- NOTE | 2020-11-06 16:53 | NUR ---
VSS entire shift, "seizure" like activity continues with 4mg ativan only relief (Q2). Febrile entire shift despite tylenol and ice packs. Lowest temp acheived was 100.2. Family came in again today and informed them that we can only have one family member here a day d/t the pandemic risk. Mother stated that she understands. Girlfriend stayed for visiting hours today. ET tube advanced 4cm this am with severe gag reflex and arm posturing. Did not have purposful movement, but did react to advance of tube. Urine output continues to be stable, rectal tube in place with no leaking.
--- NOTE | 2020-11-06 17:44 | NUR ---
VS labile all shift. Patient in afib at beginning of shift with soft BP's, HR 125-160's. 2 doses of 2.5mg lopressor given with no results. Cardizem was to be started at 10 am, but patient converted to NSR @ 0944 am. Went back into Afib @ 1345. 25mg push cardizem given, HR dropped briefly in the 80's, but went right back into the 120's. Cardizem drip started @ 1500, titrated up to max of 20, with no results as of yet. HR continues in the 120's - 150's. BP's are more stable , ranging in the low 90's to 120's sys. Urine output good and had 2 loose BM today. Rectal tube placed at 1330 when repositioned in prone position. ABG done after some adjustments to vent, and pH 7.28 CO2 82.2 resulted. RT increased RR to compensate. compensate.
--- NOTE | 2020-11-06 22:30 | NUR ---
ASSUMED PT CARE FROM MONICA MOONEY AT 191 PT INTUBATED/SEDATED/PARALYZED. VENT AC 28, VT 300, PEEP 10, FIO2 80%; BIOX >90%. PROPOFOL 60MCG/KG/MIN, PRECEDEX AT 0.5MCG/KG/HR, DECREASED TO 0.3MCG/KG/HR, NIMBEX AT 3 MCG/KG/MIN WITH TRAIN OF FOUR 4/4. BIS MONITOR READING 40-50'S. CARIZEM GTT INFUSING AT 20MG/HR D/T AFIB WITH RVR; HR 130-150'S. SPOKE WITH DR. RUSS ABOUT BOLUSING FLUIDS D/T HR AND PT BEING NEGATIVE FLUID BALANCE AT LEAST 1L/DAY. NO ORDERS TO GIVE FLUIDS D/T ARDS; HOWEVER, OKAY TO DISCONTINUE LASIX. CALLED AGAIN AT 2129 WITH ORDERS TO STOP CARDIZEM D/T NO EFFECT AND GIVE LOPRESSOR 25MG PT Q6HRS AND TO HOLD FOR A HR <80. PT CONVERTED BACK TO NSR WITH HR 80-90'S AT 2220. BP REMAINS STABLE, SEE FLOWSHEET. ARTERIAL LINE REMAINS IN RIGHT RADIAL ARTERY; HOWEVER, SQUARE WAVE FORM TEST WAS SLOW TO RESPOND WITH NO OSCILLATIONS NOTED. TRANSDUCER REMAINS AT PHLEBOSTATIC AXIS AND WAS ZERO'D AT BEGINNING OF SHIFT. VITAL HIGH PROTEIN INCREASED TO GOAL OF 50MLS/HR AT 2200 WITH NO RESIDUALS NOTED THIS SHIFT. WILLOUGHBY CATHETER REMAINS PATENT AND DRAINING TO GRAVITY. PLAN IS TO UNPRONE AT 0000. WILL CONTINUE TO MONITOR.
[2020-11-07 03:53] LABS: Hematocrit 28.4 % (37.0-53.0); Hemoglobin 8.3 g/dL (13.5-17.5); Mean Corpuscular HGB 25.9 pg (26.0-34.0); Mean Corpuscular HGB Conc 29.2 g/dL (31.5-36.5); Mean Corpuscular Volume 89 fL (80-100); Mean Platelet Volume 9.6 fL (9.1-12.4); NRBC ABSOLUTE 0.02 K/mm3 (0.00-0.02); NRBC Auto 0.2 /100 WBC (0.0-0.2); Platelet Count 186 K/mm3 (150-400); RDW Coefficient Variation 18.2 % (11.7-14.2); RDW Standard Deviation 58.6 fL (35.1-46.3); Red Blood Cell Count 3.21 M/mm3 (4.30-5.90); White Blood Cell Count 12.51 K/mm3 (4.00-11.30)
[2020-11-07 04:09] LABS: Anion Gap -1 mmol/L (6-16); Blood Urea Nitrogen 31 mg/dL (8-24); Bun/Creatinine Ratio 45.4 (12.0-20.0); CO2, Blood 41 mmol/L (21-32); Calcium, Blood 8.6 mg/dL (8.5-10.1); Chloride, Blood 101 mmol/L (98-108); Creatinine, Blood 0.68 mg/dL (0.60-1.20); Glomerular Filtration Rate >60 (60-); Glucose, Blood 209 mg/dL (70-99); Magnesium, Blood 1.9 mg/dL (1.6-2.4); Phosphorus, Blood 3.3 mg/dL (2.5-4.9); Potassium, Blood 4.3 mmol/L (3.5-5.5); Sodium, Blood 141 mmol/L (136-145)
[2020-11-07 04:22] LABS: BAND PERCENT MAN 5 % (0-8); BASOPHILS PERCENT MAN 0 % (0-2); EOSINOPHILS PERCENT MAN 0 % (0-6); LYMPHOCYTES ABSOLUTE MAN 0.75 K/mm3 (0.84-5.20); LYMPHOCYTES PERCENT MAN 6 % (21-46); MONOCYTES ABSOLUTE MAN 0.75 K/mm3 (0.16-1.47); MONOCYTES PERCENT MAN 6 % (4-13); MYELOCYTE ABSOLUTE MAN 0.25 K/mm3 (0.00-0.00); MYELOCYTE PERCENT MAN 2 % (0-0); NEUTROPHILS ABSOLUTE MAN 10.75 K/mm3 (1.96-9.15); SEG NEUTROPHILS PERCENT MAN 81 % (41-73); TOTAL CELLS COUNTED 100
--- NOTE | 2020-11-07 06:01 | NUR ---
END OF SHIFT SUMMARY NO SIGNIFICANT CHANGES. VENT SETTINGS REMAIN UNCHANGED; HOWEVER, NIMBEX INCREASED TO 4MCG/KG/MIN D/T RESP RATE 30'S. TRAIN OF FOUR: 01/25. PROPOFOL AT 65MCG/KG/MIN, PRECEDEX TURNED OFF EARLY THIS MORNING, FENTANYL CONTINUES AT 75MCG/HR; BIS MONITOR 45-55 WITH ATIVAN PUSHES NEEDED TO KEEP BIS <60. ARTERIAL LINE CONTINUES TO HAVE A DICROTIC NOTCH; HOWEVER, UNSURE HOW RELIABLE READINGS ARE AFTER ZEROING THE ARTERIAL LINE, THE SQUARE WAVE FORM TEST IS VERY SLURRED AND SLOW TO RESPOND WITH NO OSCILLATIONS FOLLOWING THE WAVE. PT ALSO STARTED ALARMING SBP'S 60'S AND MAP'S <50. ATTEMPTED TO CONNECT NONINVASIVE BP CUFF TO LEFT UPPER ARM; HOWEVER, TECHNICAL PROBLEMS WERE BEING TROUBLE SHOOTED WITH THE MONITOR NOT RECOGNIZING THE NBP; THEREFORE, IN THE MEANTIME STARTED NEOSYNEPHRINE BACK UP IN CASE TRUE READINGS WERE BEING OBTAINED FROM ARTERIAL LINE. HOWEVER, ONCE NONINVASIVE CUFF ABLE TO READ IT SHOWED SBP 118. THEREFORE, TURNED OFF NEOSYNEPHRINE AND CONTINUED TAKING BP WITH BOTH ARTERIAL LINE AND NBP TO LEFT UPPER ARM. TRANSDUCER REMAINS AT PHLEBOSTATIC AXIS AND BOTH ARTERIAL BP'S AND NBP'S ARE CLOSER TO RANGE THAN BEFORE. WILL CONTINUE TO MONITOR BOTH FOR NOW. RECTAL TUBE HAS MINIMAL OUTPUT THIS SHIFT. WILLOUGHBY CATHETER IS DRAINING DARK ROB/GREEN COLORED URINE. PT IS TOLERATING VHP AT 50MLS/HR WITH LOW RESIDUALS NOTED THIS SHIFT. WILL CONTINUE TO MONITOR UNTIL REPORT IS HANDED OFF TO ONCOMING RN.
--- NOTE | 2020-11-07 08:31 | NUR ---
Assumed care. Patint resting in bed, sedated and paralyzed.
[2020-11-07 10:47] LABS: Base Excess Venous 15.3 mmol/L; Bicarbonate Venous 36.8 mmol/L (24.0-30.0); PCO2 Venous 73.1 mmHg (38-42); PO2 Venous 66.2 mmHg (38-42); pH Blood Venous 7.36 (7.34-7.37)
--- NOTE | 2020-11-07 12:25 | NUR ---
ARTERIAL LINE REMOVED, TIP INTACT, SUTURE REOVED. NO ISSUES NOTED
--- NOTE | 2020-11-07 13:49 | NUR ---
TOOK PATIENT TO CT WITH RT AND 2 RN'S, BACK FROM CT AT 1335 WITH NO ISSUES. PATIENT PUT IN PRONE POSITION UPON RETURN
--- NOTE | 2020-11-07 18:15 | NUR ---
SHIFT SUMMARY: PATIENT REMAINS SEDATED AND PARALYZED. TRIAL OF TITRATION OF PARALYTICS OFF WAS NOT SUCCESSFUL. PATIENT STARTS TO DESATURATE SOON NIMBEX IS BELOW 3. PROPOFOL REMAINS AT 60, NIMBEX AT 3.5, PRECIDEX RESTARTED AND AT .5. CT SCAN DONE PER DR. BONILLA. TUBE FEEDING CONTINUED, WILLOUGHBY AND RECTAL TUBE STILL IN PLACE. URINE OUTPUT REMAINS GOOD, BP'S STILL LABILE THROUGHOUT THE DAY. PATIENT PRONED AFTER CT SCAN COMPLETE.
--- NOTE | 2020-11-07 19:15 | NUR ---
ASSUMING PT CARE: PT INTUBATED, SEDATED, PARALYZED. PRONE. VENT: AC 28/300, 10/85%. PROPFOL GTT @ 30mcg/kg/min, PRECEDEX 0.5mcg/kg/hr, NIMBEX 3.5mcg/kg/min. PT UNRESPONSIVE TO VERBAL STIMULI, +SOFT GAG & WINCES W/ ORAL CARE. BIS MONITOR 40s. LIMBS FLACCID. LS COARSE THROUGHOUT. TF @ 50ml/hr. RECTAL TUBE & WILLOUGHBY PATENT & DRAINING TO GRAVITY. SKIN APPEARS PWD. SEE SHIFT ASSESSMENT.
[2020-11-08 04:43] LABS: BASOPHILS ABSOLUTE AUTO 0.02 K/mm3 (0.00-0.23); BASOPHILS PERCENT AUTO 0 % (0-2); EOSINOPHILS PERCENT AUTO 0 % (0-6); Hematocrit 24.9 % (37.0-53.0); IMMATURE GRAN ABSOLUTE AUTO 0.52 K/mm3 (0.00-0.10); IMMATURE GRAN PERCENT AUTO 6 % (0-1); LYMPHOCYTES ABSOLUTE AUTO 0.74 K/mm3 (0.84-5.20); LYMPHOCYTES PERCENT AUTO 8 % (21-46); MONOCYTES ABSOLUTE AUTO 0.36 K/mm3 (0.16-1.47); MONOCYTES PERCENT AUTO 4 % (4-13); Mean Corpuscular HGB 28.2 pg (26.0-34.0); Mean Corpuscular HGB Conc 32.1 g/dL (31.5-36.5); Mean Corpuscular Volume 88 fL (80-100); Mean Platelet Volume 10.7 fL (9.1-12.4); NEUTROPHILS ABSOLUTE AUTO 7.41 K/mm3 (1.96-9.15); NEUTROPHILS PERCENT AUTO 82 % (41-73); NRBC ABSOLUTE 0.03 K/mm3 (0.00-0.02); NRBC Auto 0.3 /100 WBC (0.0-0.2); Platelet Count 186 K/mm3 (150-400); RDW Coefficient Variation 17.8 % (11.7-14.2); RDW Standard Deviation 57.1 fL (35.1-46.3); Red Blood Cell Count 2.84 M/mm3 (4.30-5.90); White Blood Cell Count 9.05 K/mm3 (4.00-11.30)
[2020-11-08 05:06] LABS: Anion Gap 1 mmol/L (6-16); Blood Urea Nitrogen 25 mg/dL (8-24); Bun/Creatinine Ratio 46.1 (12.0-20.0); CO2, Blood 38 mmol/L (21-32); Calcium, Blood 7.6 mg/dL (8.5-10.1); Chloride, Blood 98 mmol/L (98-108); Creatinine, Blood 0.54 mg/dL (0.60-1.20); Glomerular Filtration Rate >60 (60-); Glucose, Blood 190 mg/dL (70-99); Magnesium, Blood 2.1 mg/dL (1.6-2.4); Potassium, Blood 4.6 mmol/L (3.5-5.5); Sodium, Blood 137 mmol/L (136-145)
--- NOTE | 2020-11-08 06:33 | NUR ---
SHIFT SUMMARY: PT CONTINUES TO BE INTUBATED, SEDATED, & PARALYZED. VENT: AC 28/300, 10/90%. PROPOFOL GTT @ 60mcg/kg/min, PRECEDEX 0.5mcg/kg/hr, NIMBEX 3.5mcg/kg/min. NO CHANGES IN NEURO STATUS PREVIOUSLY DOCUMENTED. TRANE OF 4, 4/4. BIS CONSISTENTLY 40s. PT W/ 3 SHORT EPISODES OF AFIB LAST NIGHT W/ HR IN THE 120s. THESE EPISODES WERE SELF-RESOLVING & PT HAS BEEN IN NSR FOR SEVERAL HOURS W/OUT ISSUE. TF PLACED ON HOLD FOR APPROX 3 HRS D/T RESIDUALS OF >400ml. TF RESUMED @ 25ml/HR & RESIDUALS NOW 50, PT TOLERATING WELL. NO S/Sx OF GI INTOLERANCE. BED BATH COMPLETE THIS SHIFT. MORNING LOPRESSOR HELD D/T BRADYCARDIA IN THE 50s & SBP <65. WILL PASS THIS ONTO MORNING RN TO DISCUSS MED SCHEDULE W/ MD.
--- NOTE | 2020-11-08 08:36 | NUR ---
BEDSIDE REPORT TAKEN AT 0700. PT SEDATED ON PROPOFOL AT 50MCG, PRECEDEX AT 0.5MCG, FENT GTT AT 75MCG/HR, AND ON NIMBEX AT 3.5MCG FOR VENT COMPLIANCE. PT HAD SMALL MOVEMENT OF MOUTH AND SMALL GRIMACES W ORAL CARE. PT NOT BREATHING OVER VENT. FIO2 DECREASED TO 80% AT 0800 BY RT, SATS >92%. WHEN PT URNED AT 0800, PEEK PRESSURE IMMEDIATELY INCREASED TO 45-48, PT SUCTIONED/NO SECRETIONS. PEEK PRESSURES DECREASED TO 38 AT 0830. DURING THIS TIME BIS MONITOR WENT FROM 38 TO 74 AND SATS STARTED TO DROP TO 85%. ATIVAN 2MG GIVEN AND FIO2 INCREASED TO 100%. SHORTLY AFTER ATIVAN PT WENT INTO AFIB W RVR RATE 140'S; BP STABLE. DR MONROY AT BEDSIDE. LEBETALOL 40MG GIVEN PER . PT HAS NOW CONVERTED BACK INTO SINUS RYTHYM W RATE 70'S; BP REMAINS STABLE.
--- NOTE | 2020-11-08 10:34 | NUR ---
DR BONILLA IN TO SEE PT. PEEP INCREASED TO 12. FIO2 REMAINS AT 100%. SATS 87-89%. PT TO BE PRONED TODAY.
--- NOTE | 2020-11-08 11:06 | NUR ---
PT'S SATS DECREASED TO 85% DESPITE RAISE IN PEEP TO 12. PT PLACED IN FLAT SUPINE POSITION; THIS IS THE ONLY POSITION THAT IMPROVED OXYGENATION. SATS NOW 92%; DR BONILLA NOTIFIED.
--- NOTE | 2020-11-08 11:40 | NUR ---
TURNING OFF NIMBEX AND SEDATIVES TEMP. TO ASSESS NEURO STATUS DISCUSSED W DR BONILLA. WILL NOT TURN OFF THESE MEDS AT THIS TIME PT 02 IS NOT STABLE AT THIS TIME.
--- NOTE | 2020-11-08 15:24 | NUR ---
PT PRONED AT 1330 WITH THE ASSISTANCE OF ANOTHER RN AND RT. PT PLACED PRONE W/O DIFFICULTY. PRECEDEX, FENT, NIMBEX, AND PROPOFOL REMAIN AT SAME RATE. AM ASSESSMENT ESSENTIALLY UNCHANGED FROM THIS AM OTHER THAN PEEP INCREASED TO 12. FIO2 REMAINS AT 100%. PT TOLERATING TUBE FEEDS; RATE INCREASED TO 45CC/HR. POWERGLIDE PLACED TO AP. PT'S MOTHER IN TO SEE HER SON; FULL UPDATE GIVEN. RHTHYM SINUS W RATE 70-80'S. PT SOMEWHAT HTN. LOPRESSOR PT GIVEN AT 1300.
--- NOTE | 2020-11-08 16:35 | NUR ---
RHTHYM CHANGED TO AFIB/FLUTTER W RATE 120-140'S. HTN. DR BONILLA NOTIFIED. LABETALOL 20MG GIVEN PER DR BONILLA.
--- NOTE | 2020-11-08 17:07 | NUR ---
2ND DOSE OF LABETALOL 20MG BROUGHT PT OUT OF A FIB/FLUTTER IMMEDIATELY. PT NOW SINUS RHTHYM, RATE 70'S.
--- NOTE | 2020-11-08 18:00 | NUR ---
ATIVAN 2MG IVP GIVEN FOR HTN 189/95, WITH INCREASED HR 90'S. BIS HAS INCREASED WELL FROM 40-50 TO 70'S.
--- NOTE | 2020-11-08 18:22 | NUR ---
PT'S HR AND BP IMPROVED AFTER ATIVAN. BIS DECREASED WELL 40-50'S.
--- NOTE | 2020-11-08 19:15 | NUR ---
ASSUMING PT CARE: PT INTUBATED, SEDATED, PARALYED. VENT: AC 28/300, 12/90%. PROPOFOL GTT @ 50mcg/kg/min, PRECEDEX 0.5mcg/kg/hr, NIMBEX 3.5mcg/kg/min, FENTANYL GTT @ 75mcg/hr. BIS 40s. PT LAYING PRONE, TILTED TO THE L & IN SWIMMER'S POSITION. TRANE OF 4, 4/4. PT IS SYNCHRONOUS W/ THE VENT. WILLOUGHBY & RECTAL TUBE DRAINING TO GRAVITY. WILL CONTINUE TO MONITOR & REPORT APPROPRIATE.
[2020-11-09 03:25] LABS: BASOPHILS ABSOLUTE AUTO 0.02 K/mm3 (0.00-0.23); BASOPHILS PERCENT AUTO 0 % (0-2); EOSINOPHILS ABSOLUTE AUTO 0.01 K/mm3 (0.00-0.68); EOSINOPHILS PERCENT AUTO 0 % (0-6); Hematocrit 27.5 % (37.0-53.0); Hemoglobin 7.9 g/dL (13.5-17.5); IMMATURE GRAN ABSOLUTE AUTO 0.48 K/mm3 (0.00-0.10); IMMATURE GRAN PERCENT AUTO 4 % (0-1); LYMPHOCYTES ABSOLUTE AUTO 1.22 K/mm3 (0.84-5.20); LYMPHOCYTES PERCENT AUTO 10 % (21-46); MONOCYTES ABSOLUTE AUTO 0.71 K/mm3 (0.16-1.47); MONOCYTES PERCENT AUTO 6 % (4-13); Mean Corpuscular HGB 25.8 pg (26.0-34.0); Mean Corpuscular HGB Conc 28.7 g/dL (31.5-36.5); Mean Corpuscular Volume 90 fL (80-100); NEUTROPHILS ABSOLUTE AUTO 9.45 K/mm3 (1.96-9.15); NEUTROPHILS PERCENT AUTO 79 % (41-73); NRBC ABSOLUTE 0.06 K/mm3 (0.00-0.02); NRBC Auto 0.5 /100 WBC (0.0-0.2); Platelet Count 206 K/mm3 (150-400); RDW Coefficient Variation 17.8 % (11.7-14.2); RDW Standard Deviation 57.3 fL (35.1-46.3); Red Blood Cell Count 3.06 M/mm3 (4.30-5.90); White Blood Cell Count 11.89 K/mm3 (4.00-11.30)
[2020-11-09 03:41] LABS: Anion Gap -1 mmol/L (6-16); Blood Urea Nitrogen 30 mg/dL (8-24); Bun/Creatinine Ratio 49.4 (12.0-20.0); CO2, Blood 42 mmol/L (21-32); Calcium, Blood 8.3 mg/dL (8.5-10.1); Chloride, Blood 103 mmol/L (98-108); Creatinine, Blood 0.61 mg/dL (0.60-1.20); Glomerular Filtration Rate >60 (60-); Glucose, Blood 147 mg/dL (70-99); Sodium, Blood 144 mmol/L (136-145)
--- NOTE | 2020-11-09 05:53 | NUR ---
SHIFT SUMMARY: PT CONTINUES TO BE INTUBATED, SEDATED, & PARALYZED. VENT: AC 28/300 . PROPOFOL GTT @ 60mcg/kg/min, PRECEDEX 0.5mcg/kg/hr, NIMBEX 3.5mcG/kg/min, FENTANYL 75mcg/hr. BIS W/ A CONSITENT RANGE OF 38-48 T/O SHIFT W/ INCREASES TO THE 60s W/ PT CARE. NO CHANGE IN NEURO STATUS SINCE LAST ENTRY. PT IS SYNCHRONOUS W/ THE VENT. FREQUENT EPISODES OF LOW TIDAL VOLUMES RESOLVED W/ ETT CUFF INFLATION. TRANE OF 4, 4. PT PRONED UNTIL 0100 & REMAINS SUPINE. SINUS RHYTHM THROUGHOUT MOST OF THE SHIFT UNTIL APPROX 0530, PT CONTINUES TO BE IN AFIB 117-130s. WILL CONTINUE TO MONITOR & MEDICATE APPROPRIATE.
--- NOTE | 2020-11-09 07:41 | NUR ---
BEDSIDE REPORT TAKEN AT 0700. PT SEDATED AND PARALYZED FOR MECH VENT. PROPOFOL WAS AT 60MCG BUT TURNED DOWN TO 50MCG AT 0700 FOR HYPOTENSION. PRECEDEX AT 0.5MCG, FENT AT 75MCG/HR, NIMBEX AT 3.5MCG. PT SYNCHRONOUS WITH VENT; IS NOT BREATHING OVER VENT. FIO2 AT 90%, PT'S SATS 96%. PEEP AT 12. RESP RATE SET AT 28. TV 300 FOR POOR LUNG COMPLIANCE. PEAK PRESSURES STABLE AT THIS TIME. PT IS IN AFIB W RVR; RATE 120-140'S. PT WITH RESOLVING HYPOTENSION. WILL CALL DR BONILLA FOR FURTHER ORDERS REGARDING AFIB/HYPOTENSION. STOOL SAMPLE SENT FOR CDIFF.
--- NOTE | 2020-11-09 08:10 | NUR ---
DR BONILLA CALLED AND UPDATED. PT TO RECEIVE LABETALOL 40MG FOR AFIB.
--- NOTE | 2020-11-09 08:25 | NUR ---
PT CONVERTED BACK TO SINUS RHYTHM ~5MIN AFTER LABETALOL 40MG. RATE 70'S; BP REMAINS STABLE.
--- NOTE | 2020-11-09 08:59 | NUR ---
DR MONROY IN TO SEE PT; NO NEW ORDERS.
[2020-11-09 09:35] LABS: C DIFFICILE DNA Positive (Negative)
--- NOTE | 2020-11-09 09:42 | NUR ---
DR BONILLA AT BEDSIDE. RATE INCREASED TO 30, FIO2 DECREASED TO 80%. WILL ATTEMPT TO WEAN ONLY NIMBEX DOWN AT THIS TIME PER DR BONILLA. CDIFF +.
--- NOTE | 2020-11-09 10:19 | NUR ---
FIO2 INCREASED TO 90% FOR SATS 87-88%. SATS NOW 91%. VANCO PT STARTED FOR CDIFF.
--- NOTE | 2020-11-09 10:48 | NUR ---
NIMBEX TO BE TITRATED DOWN PER DR BONILLA. NIMBEX DECREASED TO 2MCG. VBG SENT.
[2020-11-09 10:49] LABS: Base Excess Venous 17.4 mmol/L; Bicarbonate Venous 38.8 mmol/L (24.0-30.0); PCO2 Venous 73.7 mmHg (38-42); pH Blood Venous 7.37 (7.34-7.37)
--- NOTE | 2020-11-09 11:23 | NUR ---
PT AWAKE, ATTEMPTS TO NOD HEAD TO QUESTIONS. UNABLE TO MOVE EXTREMITIES, WILL CONT TO TITRATE NIMBEX OFF TOLERATED. SPO2 92-93%. PT REMAINS SYNCHRONOUS W VENT.
--- NOTE | 2020-11-09 11:58 | NUR ---
NIMBEX TURNED OFF. PT APPEARED CALM, FOLLOW DIRECTIONS, ABLE TO LIGHTLY MOVE BOTH HANDS TO COMMAND. NODDED HEAD NO TO PAIN. NODDING APPROPRIATELY TO QUESTIONS. RESP RATE RAISED HIGH 40'S. SATS BEGAN TO FALL. PROPFOL INCREASED TO 60, PRECEDEX UP TO 0.7, THIS DID NOT IMPROVE RATE. ATIVAN 2MG GIVEN W/O IMPROVEMENT; SATS DECREASED TO 84%. AT THIS TIME NIMBEX RESTARTED AT 3.5MCG. RT NOTIFIED. PT MAY NEED TO BE PRONED SHORTLY. DR BONILLA NOTIFIED
--- NOTE | 2020-11-09 12:15 | NUR ---
NIMBEX AT 3.5MCG. PRECEDEX INCREASED TO 1MCG, PER DR BONILLA. DR BONILLA AT BEDSIDE, GIVEN FULL REPORT. RT AT BEDSIDE; BITE BLOCK RE-TAPED. ETT IN GOOD POSITION. PT'S SATS 90% ON 100% FIO2. PT BREATHING OVER VENT SLIGHTLY AT 32; RATE SET AT 30.
--- NOTE | 2020-11-09 14:11 | NUR ---
PT'S SATS 99-100% AT 1245. PT PRONED AT [address] BONILLA. PT'S BP STARTED TO TREND DOWN W MAPS AROUND 50. PRECEDEX DECREASED TO 0.5MCG. DR BONILLA NOTIFIED. LEVOPHED STARTED AT 4MCG AT 1410.
--- NOTE | 2020-11-09 14:17 | NUR ---
PT IS ADEQUATELY PARALYZED. NIMBEX AT 3.5MCG. PT IS NOT BREATHING OVER VENT. NO COUGH, GAG, SWALLOW. PT IS SYNCHRONOUS WITH VENT. SATS 97%, FIO2 90%. WILL CONTINUE TO TITRATE DOWN TOLERATED. NO MOVEMENT OF EXTREMITIES NOTED. PT IS BRADICARDIC W RATE 50'S. BP IS IMPROVING W LEVOPHED AT 4MCG, MAP >65.
--- NOTE | 2020-11-09 14:57 | NUR ---
BIS NOW IN 70'S, HR HAS INCREASED 70'S. PRECEDEX INCREASED TO 0.7MCG
--- NOTE | 2020-11-09 17:14 | NUR ---
LEVOPHED TURNED OFF AT 1530 PT BECAME HTN AFTER BEING PLACED PRONE. ATIVAN 2MG GIVEN FOR BIS 70'S, INCREASED HR, INCREASED BP. BIS NOW 40-50'S. BP, HR IMPROVED. PROPOFOL IS AT 60MCG, PRECEDEX AT 0.7MCG, FENTANYL AT 75MCG/HR, NIMBEX AT 3.5. PT REMAINS ADEQUATELY PARALYZED. PT HAS TOLERATED TF W MINIMAL RESIDUALS. FIO2 AT 75%, SATS 92%. PT'S MOTHER STOPPED IN TODAY FOR SHORT VISIT; UPDATE GIVEN.
--- NOTE | 2020-11-09 19:30 | NUR ---
ASSESSMENT/ASSUMED CARE PT INTUBATED AND ON [facility] VENT. SEDATION WITH PROPOFOL, FENTANYL GTT AND NIMBEX. TOF 4/4. BIS 40. LUNGS CLEAR BUT DECREASED IN THE BASES. VENT SETTINGS AC 30 TV 300 PEEP 12 FIO2 75% TO KEEP SPO2 >90%. SUCTIONED SCANT THIN CLEAR SERECTIONS VIA ET TUBE. HEART RATE REGULAR 70'S. BP STABLE. BP HYPOACTIVE. TUBE FEED VITAL HP AT GOAL RATE 50 ML/HR WITH WATER 30 ML Q4HR. RESIDUAL CHECK 10 ML REFED. RECTAL TUBE DRAINING LIQUID BROWN STOOL. ARSH CARE DONE AND TUBE REPOSITIONED. WILLOUGHBY CATH PATENT DRAINING YELLOW URINE. ORAL CARE DONE. PT PRONE REPOSITIONED TO SWIMMERS POSITION WITH HEAD TO THE RIGHT. RIGHT ARM AND RIGHT KNEE BENT UP WITH LEFT ARM DOWN. PILLOWS UNDER KNEES AND ANKLES. PILLOW UNDER RIGHT SIDE. PICC LINE TO RIGHT UPPER ARM DRSG INTACT. 11 CM OUT. SITE CLEAR. FENTANYL GTT AT 75 MCQ/HR, PROPOFOL AT 60 MCQ/KG/MIN, NIMBEX 3.5 MCQ/KG/MIN, PRECEDEX 0.7 MCQ/KG/HR AND NS AT 10 ML/HR. POWER GLIDE TO LEFT UPPER ARM SALINE LOCKED, SITE CLEAR, FLUSHED WITHOUT DIFFICULTY.
--- NOTE | 2020-11-09 23:18 | NUR ---
HYPERTENSION PT BP 174/85 HEART RATE 79, RECHECK 172/81 HEART RATE 78, MED WITH LABETALOL 40 MG IV FOR HYPERTENSION.
--- NOTE | 2020-11-10 02:07 | NUR ---
HYPOTENSION PT REPOSITIONED. BP DOWN, RECHECKED CONT HYPOTENSION. RESTARTED LEVOPHED AT 2 MCQ/MIN.
[2020-11-10 04:17] LABS: BASOPHILS ABSOLUTE AUTO 0.04 K/mm3 (0.00-0.23); BASOPHILS PERCENT AUTO 0 % (0-2); EOSINOPHILS ABSOLUTE AUTO 0.02 K/mm3 (0.00-0.68); EOSINOPHILS PERCENT AUTO 0 % (0-6); Hematocrit 29.6 % (37.0-53.0); Hemoglobin 8.7 g/dL (13.5-17.5); IMMATURE GRAN ABSOLUTE AUTO 0.49 K/mm3 (0.00-0.10); IMMATURE GRAN PERCENT AUTO 3 % (0-1); LYMPHOCYTES PERCENT AUTO 11 % (21-46); MONOCYTES PERCENT AUTO 6 % (4-13); Mean Corpuscular HGB 26.5 pg (26.0-34.0); Mean Corpuscular HGB Conc 29.4 g/dL (31.5-36.5); Mean Corpuscular Volume 90 fL (80-100); Mean Platelet Volume 9.5 fL (9.1-12.4); NEUTROPHILS ABSOLUTE AUTO 11.43 K/mm3 (1.96-9.15); NEUTROPHILS PERCENT AUTO 80 % (41-73); NRBC ABSOLUTE 0.06 K/mm3 (0.00-0.02); NRBC Auto 0.4 /100 WBC (0.0-0.2); Platelet Count 219 K/mm3 (150-400); RDW Coefficient Variation 18.6 % (11.7-14.2); RDW Standard Deviation 59.8 fL (35.1-46.3); Red Blood Cell Count 3.28 M/mm3 (4.30-5.90); White Blood Cell Count 14.28 K/mm3 (4.00-11.30)
[2020-11-10 04:32] LABS: Anion Gap 2 mmol/L (6-16); Blood Urea Nitrogen 33 mg/dL (8-24); Bun/Creatinine Ratio 49.4 (12.0-20.0); CO2, Blood 43 mmol/L (21-32); Calcium, Blood 8.2 mg/dL (8.5-10.1); Chloride, Blood 100 mmol/L (98-108); Creatinine, Blood 0.67 mg/dL (0.60-1.20); Glomerular Filtration Rate >60 (60-); Glucose, Blood 156 mg/dL (70-99); Magnesium, Blood 1.9 mg/dL (1.6-2.4); Phosphorus, Blood 3.4 mg/dL (2.5-4.9); Potassium, Blood 3.6 mmol/L (3.5-5.5); Sodium, Blood 145 mmol/L (136-145)
--- NOTE | 2020-11-10 04:38 | NUR ---
HYPOTENSION/AFIB/CALL TO MD PT WENT TO AFIB WITH RVR AND BECAME MORE HYPOTENSIVE. NOTIFIED DR BONILLA. AMIODARONE BOLUS 150 MG GIVEN AND STARTED ON AMIODARONE GTT AT 1 MG/MIN. LEVOPHED INCREASED TO 4MCQ/MIN. CXR DONE AND PT REPOSITIONED. LUNGS COARSE, SUCTIONED SCANT AMT VIA ET TUBE, CLEAR AND THIN. HEART RATE 100-140'S. BT HYPOACTIVE. RESIDUAL 170 ML REFED. PERICARE DONE AND RECTAL TUBE REPOSITIONED. LABS DRAWN AND CLAVES CHANGED TO PICC AND POWER GLIDE.
--- NOTE | 2020-11-10 06:57 | NUR ---
SHIFT SUMMARY PT CONT INTUBATED AND ON [facility] VENT. VENT SETTINGS AC 30 TV 300 PEEP 12 FIO2 75%. PT UNPRONED AT 0100. LUNGS COARSE AND DECREASE IN THE BASES. SUCTIONED SCANT AMT VIA ET TUBE. HEART RATE WAS SINUS RYTHM BUT CHANGED TO AFIB WITH RVR. STARTED ON AMIODARONE AFTER 150 MG BOLUS GIVE. PT NOW BACK TO SR. BP AFTER UNPRONING HYPOTENSIVE AND LEVOPHED STARTED. LEVOPHED TITRATE UP TO 8 MCQ/MIN NOW BACK DOWN TO 4 MCQ/MIN. BT HYPOACTIVE. TUBE FEED AT GOAL 50 ML/HR. REPORT TO ON COMING NURSE
--- NOTE | 2020-11-10 07:30 | NUR ---
ASSUMED CARE BEDSIDE REPORT FROM QUINN ANDERSON AT 0700. PT INTUBATED, SEDATED AND PARALYZED. VENT SETTINGS AC 30/300/12/75%. PROPOFOL GTT 60 MCG/KG/MIN, PRECEDEX 0.7 MCG/KG/HR, AND FENTANYL 75 MCG/HR. BIS 40'S. NIMBEX 3.5 MCG/KG/MIN, TOF 4/4. PT SYNCHRONOUS c VENT. AMIODORONE GTT 1 MCG/MIN. PT SB, RATE MID 50'S. LEVOPHED GTT FOR MAP>65. LUNGS CLEAR. SCANT THIN CLEAR SECRETIONS THROUGH ETT. ABD ROUND, SOFT, BT X 4. VHP AT GOAL OF 50 ML/HR c 30 ML FLUSHES q4 HR. 210 ML RESIDUALS THIS AM. [place] PATENT, DRAINING CLEAR YELLOW URINE TO GRAVITY. RECTAL TUBE DRAINING BROWN LIQUID STOOL TO GRAVITY. DEPENDENT EDEMA TO HANDS, ELEVATED ON PILLOWS. PICC TO RUE, DRESSING C/D/I, POWERGLIDE TO LUE, DRESSING C/D/I. PLAN TO PRONE AT 1200. WILL CONTINUE TO MONITOR.
--- NOTE | 2020-11-10 10:51 | NUR ---
PARALYTIC VACATION/DR KAISER ROUNDS NIMBEX PLACED ON STANDBY FOR APPROX 45 MINUTES. PT ABLE TO SQUEEZE HANDS BILATERALLY. DOES NOT MOVE TOES. SHAKES HEAD NO WHEN ASKED ABOUT PAIN. RR INCREASED TO 38-42, O2 SATS DECREASED TO LOW 80'S. RT CALLED, FIO2 INCREASED TO 100%. NIMBEX RESTARTED FOR SHORT PERIOD OF TIME. DISCUSSED c DR KAISER, NIMBEX PLACED ON STANDBY, FENTANYL INCREASED TO 100 MCG/HR. PT HR INCREASED, AFIB, RATE 110-130. PHARMACY CALLED REGARDING POTENTIAL FOR PROLONGED QT D/T CURRENT MEDS AND VORICONAZOLE. EKG DONE. WILL MONITOR CLOSELY.
--- NOTE | 2020-11-10 17:21 | NUR ---
SHIFT SUMMARY PT REMAINED INTUBATED, VENT SETTINGS AC 30/300/12/70%. PROPOFOL GTT 60 MCG/KG/MIN, FENTANYL 100 MCG/HR. NIMBEX AND PRECEDEX TITRATED OFF THIS SHIFT. PT WAS ABLE TO SQUEEZE HANDS THIS SHIFT. PRONED AT 1240. TOLERATED WELL. OCCASIONAL DOUBLE STACKING ON VENT, MEDICATED c ATIVAN PRN. LUNGS CLEAR. LEVO GTT CONTINUES AT 4 MCG/MIN, AMIODORONE GTT 0.5 MCG/MIN. PT ON ONE EPISODE OF AFIB c RVR THIS SHIFT. TUBE FEEDS CONTINUE AT GOAL. [place] PATENT, DRAINING TO GRAVITY, GREEN YELLOW URINE OUT. RECTAL TUBE IN PLACE, OCCASIONAL LEAKING. BANANA FLAKES ADDED THIS SHIFT. UPDATED MOTHER ON PHONE. WILL CONTINUE TO MONITOR UNTIL REPORT TO ONCOMING NURSE.
--- NOTE | 2020-11-10 19:15 | NUR ---
ASSESSMENT/ASSUMED CARE PT CONT INTUBATED AND ON MECH VENT. LUNGS CLEAR BUT DECREASED. VENT SETTINGS AC 30 TV 300 PEEP 12 FIO2 80%. SUCTIONED SMALL AMT CLEAR THIN SECRETIONS VIA ET TUBE. LARGE AMT ORAL SECRETIONS. ORAL CARE DONE. PT BITING TUBE WITH ORAL CARE. NOT FOLLOWING INSTRUCTIONS. SEDATED ON PROPOFOL 60 MCQ/KG/MIN, FENTANYL 100 MCQ/HR AND PRECEDEX 0.4 MCQ/KG/MIN. BILAT WRIST RESTRAINTS ON. HEART RATE 90'S SINUS RHYTHM. BP STABLE AT THIS TIME WITH LEVOPHED ON STANDBY. WILL RESTART LEVOPHED IF MAP BELOW 65. GENERAL DEPENDENT EDEMA. BT HYPOACTIVE. TUBE FEED VITAL HP AT GOAL RATE 50 ML/HR WITH WATER 30 ML Q4HR. RESIDUAL 10 ML REFED. WILLOUGHBY CATH PATENT DRAINING CLEAR YELLOW URINE. RECTAL TUBE WITH LIQUID BROWN STOOL IN TUBE, REPOSITIONED TUBE. PICC LINE TO RIGHT UPPER ARM WITH FENTANYL 100 MCQ/HR, PROPOFOL 60 MCQ/KG/MIN, NS AT 10 ML/HR AND PRECEDEX AT 0.4 MCQ/KG/MIN. SITE CLEAR AND DRSG INTACT. POWER GLIDE LEFT UPPER ARM WITH AMIODARONE AT 0.5 MG/HR, SITE CLEAR AND DRSG INTACT.
--- NOTE | 2020-11-10 20:11 | NUR ---
HYPOTENSION PT REPOSITIONED WITH RT. HYPOTENSION NOTED. RESTARTED LEVOPHED AT 2 MCQ/MIN. WITH TITRATE TO KEEP MAP ABOVE 65.
[2020-11-11 04:18] LABS: BASOPHILS ABSOLUTE AUTO 0.05 K/mm3 (0.00-0.23); BASOPHILS PERCENT AUTO 0 % (0-2); EOSINOPHILS ABSOLUTE AUTO 0.04 K/mm3 (0.00-0.68); EOSINOPHILS PERCENT AUTO 0 % (0-6); Hematocrit 28.7 % (37.0-53.0); Hemoglobin 8.5 g/dL (13.5-17.5); IMMATURE GRAN ABSOLUTE AUTO 0.72 K/mm3 (0.00-0.10); IMMATURE GRAN PERCENT AUTO 5 % (0-1); LYMPHOCYTES ABSOLUTE AUTO 0.79 K/mm3 (0.84-5.20); LYMPHOCYTES PERCENT AUTO 5 % (21-46); MONOCYTES ABSOLUTE AUTO 0.58 K/mm3 (0.16-1.47); MONOCYTES PERCENT AUTO 4 % (4-13); Mean Corpuscular HGB 26.6 pg (26.0-34.0); Mean Corpuscular HGB Conc 29.6 g/dL (31.5-36.5); Mean Corpuscular Volume 90 fL (80-100); Mean Platelet Volume 9.5 fL (9.1-12.4); NEUTROPHILS PERCENT AUTO 86 % (41-73); NRBC ABSOLUTE 0.03 K/mm3 (0.00-0.02); NRBC Auto 0.2 /100 WBC (0.0-0.2); Platelet Count 191 K/mm3 (150-400); RDW Coefficient Variation 19.5 % (11.7-14.2); RDW Standard Deviation 61.7 fL (35.1-46.3); Red Blood Cell Count 3.19 M/mm3 (4.30-5.90); White Blood Cell Count 15.58 K/mm3 (4.00-11.30)
[2020-11-11 04:50] LABS: Anion Gap 3 mmol/L (6-16); Blood Urea Nitrogen 32 mg/dL (8-24); Bun/Creatinine Ratio 51.7 (12.0-20.0); CO2, Blood 43 mmol/L (21-32); Calcium, Blood 8.2 mg/dL (8.5-10.1); Chloride, Blood 98 mmol/L (98-108); Creatinine, Blood 0.62 mg/dL (0.60-1.20); Glomerular Filtration Rate >60 (60-); Glucose, Blood 199 mg/dL (70-99); Potassium, Blood 3.8 mmol/L (3.5-5.5); Sodium, Blood 144 mmol/L (136-145)
[2020-11-11 05:30] LABS: PCO2 Arterial 72.8 mmHg (35-45); PO2 Arterial 77.2 mmHg (80-100)
--- NOTE | 2020-11-11 06:00 | NUR ---
SHIFT SUMMARY PT CONT INTUBATED AND ON [facility] VENT. CURRENT VENT SETTINGS AC 30 TV 300 PEEP 12 FIO2 75%. CRITICAL PCO2 72.[address] KAISER, NO NEW ORDERS. LUNGS CLEAR BUT DECREASED. PT UNPRONED AT 0100. HEART RATE SINUS KILLIAN AT THIS TIME IN THE 50'S. AMIODARONE STOPPED THIS AM. BT CONT HYPOACTIVE. TUBE FEED AT GOAL. BP STABLE ON LEVOPHED AT 3 MCQ/MIN. PICC LINE TO RIGHT UPPER ARM STABLE, POWER GLIDE TO LEFT UPPER ARM STABLE. PT CURRENTLY SEDATED WITH PROPOFOL AT 60 MCQ/KG/MIN, PRECEDEX 0.4 MCQ/KG/MIN AND FENTANYL GTT AT 100 MCQ/HR. PT TURNED Q2HR. REPORT TO ON COMING NURSE
--- NOTE | 2020-11-11 08:00 | NUR ---
ASSUMED CARE: REPORT RECEIVED FROM QUINN Matute RN. ASSUMED CARE OF THIS PT AT APPROX 0700. ON ASSESSMENT, THE PT IS RESTING QUIETLY. EYES OPEN SPONTANEOUSLY TO ANY PAUSE IN SEDATION BUT PT IS NOT FOLLOWING DIRECTIONS AT THIS TIME. SEDATION PROVIDED BY PROPOFOL & PRECEDEX, INFUSING PER EMAR W/ TITRATION NOTED IN FLOWSHEET. MONITOR SHOWS SR W/ HR 50s, CONVERTED TO AFIB RVR W/ HR 120-150s AT 0820. BP STABLE W/ LEVOPHED DRIP INFUSING PER EMAR, TITRATION IN FLOWSHEET. OGT W/ VHP TUBE FEED INFUSING AT GOAL RATE OF 50 ML/HR, 30 ML H2O FLUSH Q4H. RESIDUALS NOTED IN I&O. RECTAL TUBE PATENT/ DRAINING ORANGE LIQUID/PASTY STLS. TEMP WILLOUGHBY PATENT/ DRAINING YELLOW URINE. PT EDEMATOUS T/O, SKIN OVERALL CDI. WILL CONTINUE TO MONITOR & UPDATE NEEDED.
--- NOTE | 2020-11-11 09:30 | NUR ---
DR KAISER: PROVIDER AT BEDSIDE TO EVAL THE PT. SHE HAS ADJUSTED VENT AC RATE FROM 30-28. SHE WOULD LIKE THE PRECEDEX TO BE STOPPED & HAS D/C'd ORDER. NO OTHER CHANGES AT THIS TIME.
--- NOTE | 2020-11-11 14:00 | NUR ---
UPDATE: AT APPROX 1300 PT HAS BEEN PLACED IN PRONE POSITIONING W/ SLIGHT TILT ONTO L HIP. 2 RNs, PCT & RT AT BEDSIDE DURING THIS TIME. PT TOLERATING VENT SETTINGS WELL IN THIS POSITION & O2 SATS > 92%.
--- NOTE | 2020-11-11 17:44 | NUR ---
SHIFT SUMMARY: PT REMAINS INTUBATED & SEDATED W/ PROPOFOL, PRECEDEX & FENTANYL DRIPS PER EMAR - TITRATION NOTED IN FLOWSHEET. WHILE REPOSITIONING, PT BECAME INCREASINGLY AGITATED & WAS RESISTANT TO TURNING HIS HEAD IN EITHER DIRECTION WHILE PRONED. 100 MCG FENTANYL GIVEN PER EMAR W/ RESOLUTION OF ANXIETY. THIS WAS DISCUSSED W/ DR KAISER AT THE TIME OF INCIDENCE & ORDERS PLACED FOR FENTANYL DRIP SO THAT RATE OF FENTANYL INFUSION CAN BE INCREASED TO 150 MCG/HR. LS ARE DIM T/O, OCCASIONAL CRACKLES NOTED IN BASES. VENT SETTINGS: AC 28/300/12/70% W/ O2 SATS > 92% ON AVG. DESATS TO 88% WHEN AGITATED. MONITOR SHOWS SR W/ HR 70-80s, BP LABILE W/ LEVOPHED CURRENTLY INFUSING AT 1 MCG/MIN. LEVOPHED PLACED ON STANDBY NUMEROUS TIMES TODAY FOR HTN & RESTARTED FOR HYPOTENSION. OGT W/ TUBE FEEDS AT GOAL - RESIDUAL NOTED IN I&O. RECTAL TUBE PATENT/ DRAINING LIGHT BROWN PASTY/ LIQUID STLS. RECTAL TEMP PROBE IN PLACE. WILLOUGHBY PATENT/ DRAINING YELLOW URINE. PT IS EDEMATOUS, SKIN OVERALL CDI. WILL CONTINUE TO MONITOR & REPORT OFF TO ONCOMING RN.
--- NOTE | 2020-11-11 19:05 | NUR ---
ASSUMING PT CARE: PT INTUBATED, SEDATED. VENT: AC 28/300, 12/70%. GTTs: FENTANYL @ 150mcg/hr, PROPOFOL @ 60mcg/kg/min, PRECEDEX 0.5mcg/kg/hr, LEVOPHED @ 3mcg/min. PT LAYING PRONE, R SIDE, SWIMMER's POSITION. RESPONDS ONLY TO NOXIOUS STIMULI, WITHDRAWS FROM ORAL CARE. AT TIMES PT BITES @ ETT, BECOMES TACHYPNEIC, & PULLS @ RESTRAINTS. PT REQUIRES FREQUENT DOSES OF PRN FENTANYL WHICH RESOLVES AGITATION. MONITOR INDICATES A NSR, HR 50s-60s. TF @ 50ml/hr. WILLOUGHBY RECATL TUBE PATENT. WILL CONTINUE TO MONITOR & REPORT APPROPRIATE.
--- NOTE | 2020-11-12 02:00 | NUR ---
UPDATE: @ 0115 PT REPOSITIONED SUPINE, LEANING ON L SIDE. PT WAS PRE-MEDICATED W/ IVP FENTANYL & TOLERATED WELL. NO REMARKABLE CHANGES IN VS. AFTER REPOSITIONING, PT APPEARS TO TOLERATE THE VENT BETTER W/ LESS FREQUENT EPISODES OF AGITATION, TACHYPNEA, TACHYCARDIA. PT NOW IN A SINUS RHYTHM W/ HR 50s-60s. BEFORE REPOSITIONING PT HAD A BRIEF EPISODE OF AFIB W/ HR 110-137. @ THAT TIME PT REQUIRED PRN ATIVAN & FENTANYL FOR AGITATION & HAD MUCH DIFFICULTY TOLERATING ETT, DESPITE REPOSITIONING OF NECK & HEAD REST. WILL CONTINUE TO MONITOR & REPORT APPROPRIATE.
[2020-11-12 03:33] LABS: BASOPHILS ABSOLUTE AUTO 0.04 K/mm3 (0.00-0.23); BASOPHILS PERCENT AUTO 0 % (0-2); EOSINOPHILS ABSOLUTE AUTO 0.02 K/mm3 (0.00-0.68); EOSINOPHILS PERCENT AUTO 0 % (0-6); Hematocrit 28.6 % (37.0-53.0); Hemoglobin 8.4 g/dL (13.5-17.5); IMMATURE GRAN ABSOLUTE AUTO 0.66 K/mm3 (0.00-0.10); IMMATURE GRAN PERCENT AUTO 5 % (0-1); LYMPHOCYTES ABSOLUTE AUTO 0.88 K/mm3 (0.84-5.20); LYMPHOCYTES PERCENT AUTO 6 % (21-46); MONOCYTES ABSOLUTE AUTO 0.62 K/mm3 (0.16-1.47); MONOCYTES PERCENT AUTO 4 % (4-13); Mean Corpuscular HGB Conc 29.4 g/dL (31.5-36.5); Mean Corpuscular Volume 92 fL (80-100); Mean Platelet Volume 10.2 fL (9.1-12.4); NEUTROPHILS ABSOLUTE AUTO 12.21 K/mm3 (1.96-9.15); NEUTROPHILS PERCENT AUTO 85 % (41-73); NRBC ABSOLUTE 0.02 K/mm3 (0.00-0.02); NRBC Auto 0.1 /100 WBC (0.0-0.2); Platelet Count 203 K/mm3 (150-400); RDW Coefficient Variation 19.9 % (11.7-14.2); RDW Standard Deviation 65.5 fL (35.1-46.3); Red Blood Cell Count 3.11 M/mm3 (4.30-5.90); White Blood Cell Count 14.43 K/mm3 (4.00-11.30)
[2020-11-12 03:47] LABS: Anion Gap 2 mmol/L (6-16); Blood Urea Nitrogen 27 mg/dL (8-24); Bun/Creatinine Ratio 43.3 (12.0-20.0); CO2, Blood 43 mmol/L (21-32); Calcium, Blood 8.2 mg/dL (8.5-10.1); Chloride, Blood 98 mmol/L (98-108); Creatinine, Blood 0.62 mg/dL (0.60-1.20); Glomerular Filtration Rate >60 (60-); Glucose, Blood 203 mg/dL (70-99); Potassium, Blood 4.3 mmol/L (3.5-5.5); Sodium, Blood 143 mmol/L (136-145)
[2020-11-12 03:52] LABS: BAND PERCENT MAN 1 % (0-8); BASOPHILS PERCENT MAN 0 % (0-2); EOSINOPHILS PERCENT MAN 0 % (0-6); METAMYELOCYTE ABSOLUTE MAN 0.43 K/mm3 (0.00-0.00); METAMYELOCYTE PERCENT MAN 3 % (0-0); MONOCYTES ABSOLUTE MAN 0.57 K/mm3 (0.16-1.47); MONOCYTES PERCENT MAN 4 % (4-13); MYELOCYTE ABSOLUTE MAN 0.28 K/mm3 (0.00-0.00); MYELOCYTE PERCENT MAN 2 % (0-0); NEUTROPHILS ABSOLUTE MAN 13.13 K/mm3 (1.96-9.15); SEG NEUTROPHILS PERCENT MAN 90 % (41-73); TOTAL CELLS COUNTED 100
[2020-11-12 05:15] LABS: PO2 Arterial 64.8 mmHg (80-100); pH Blood Arterial 7.37 (7.35-7.45)
[2020-11-12 05:16] LABS: PCO2 Arterial 77.8 mmHg (35-45)
--- NOTE | 2020-11-12 06:15 | NUR ---
SHIFT SUMMARY: PT REMAINS INTUBATED & SEDATED. VENT: AC 28/300, 12/75%. GTTs: PROPOFOL 65mcg/kg/min, PRECEDEX 0.5mcg/kg/hr, FENTANYL 150mcg/hr, LEVOPHED 3mcg/min. WHEN PRONE, PT WAS EASILY AGITATED, BECOMING TACHYPNEIC, PULLING @ RESTRAINTS & TURNING HEAD FROM SIDE TO SIDE. IVP FENTANYL & ATIVAN RESOLVED THIS FOR A SHORT TIME BUT PT SEEMED TO HAVE MOST IMPROVEMENT AFTER BEING PLACED SUPINE. 1 EPISODE OF AFIB LAST NOC, SEE PREVIOUS RN NOTE. VENT SETTINGS REMAIN THE SAME, PT WAS UNABLE TO TOLERATE ANY DEC IN FiO2. CONTINUES TO BREATHE SLIGHTLY OVER THE VENT @ 30RR/MIN. NO ACUTE NEG CHANGES. 950cc URINE OUTPUT. NO SIGNIFICANT OUTPUT IN RECTAL TUBE. WILL CONTINUE TO MONITOR UNTIL REPORT OFF TO ONCOMING RN
--- NOTE | 2020-11-12 09:19 | NUR ---
BEDSIDE REPORT TAKEN THIS AM. PT ON PROPOFOL AT 65MCG, PRECEDX AT 0.5MCG, AND FENT GTT AT 150CC/HR FOR MECH VENT. PEEP 12, FIO2 75%. SATS BETWEEN 88-92%. LUNGS COARSE T/O. PT OPNES EYES SPONTANIOUSLY. PT APPEARS TO NOD HEAD APPROPRIATELY TO QUESTIONS. NODS HEAD NO TO PAIN AFTER THINKING ABOUT QUESTION. PT ATTEMPTED TO GRASP HAND TO COMMAND BUT TOO PROFOUNDLY WEAK AT THIS TIME TO DO SO. PT WENT BRIEFLY INTO AFIB W RVR; RATE 120-140 THIS AM. THEN WAS BRADYCARDIC W RATE 50'S. PT CURRENTLY IN SINUS RHTHYM W RATE 60-70'S. BP LABILE PT ON LEVOPHED AT 1MCG; WILL PLACE ON STANDBY. LOPRESSOR GIVEN PT'S RHTYHM TENDS TO CHANGE TO AFIB W RVR WHEN HELD. DR [facility] AND GIVEN FULL UPDATE. TF AT GOAL; RATE 50CC/HR W NO RESIDUALS THIS AM.
--- NOTE | 2020-11-12 12:14 | NUR ---
ASSUMED CARE REPORT FROM KIM ANDERSON. PT. REMAINS SEDATED AND INTUBATED. PT OPENS EYES TO VERBAL STIMULI, SHAKES HEAD NO TO PAIN, ATTEMPTS TO MOVE FEET WHEN ASKED. PT. VENT SETTINGS OF AC 28, TV 300, PEEP 12, 75%. LS COARSE WITH MINIMAL SECREATIONS FROM ETT. PT. CONTINUES WITH TUBE FEEDING, NO RESIDUALS AT THIS TIME. TF INFUSING AT 50ML/HR WITH FLUSH OF 30ML Q4. PT. HAS PRECEDEX AT 0.5MCG/KG/MIN AND PROPOFOL AT 65 MCG/KG/MIN FOR SEDATION, ALONG WITH FENTNAYL GTT AT 150MCG/HR. PER DR. KAISER HOLD ON PRONING TODAY. FAMILY MEETING TO HAPPEN WITH PALLIATIVE CARE AT 3PM. VSS AT THIS TIME PT REMAINS OFF OF LEVOPHED GTT.
--- NOTE | 2020-11-12 13:51 | NUR ---
DR. KAISER AT BEDSIDE ATTEMPTED TO WEAN DOWN PT SEDATION AND TRIAL PT ON SPONT MODE WITH PRESSURE SUPPORT OF 12. PT. TVS AROUND 375 AND SHAKES HEAD YES TO FEELING HARDER TO BREATHE. PT. RESTLESS IN THE BED SHAKING HIS HEAD. SPO2 BEGAN TO DECREASE TO 85% AFTER APPROX 10 MIN. 2MG ATIVAN GIVEN AT THIS TIME TO ATTEMPT TO EASE PT WORK OF BREATHING ON VENT. PER DR. KAISER SEDATION RETURNED TO PROP AT RATE OF 65MCG/KG/MIN AND PRECEDEX INCREASED TO 0.7MCG/KG/MIN. ATTEMPT TO ADJUST PT TVS TO 450, AND PT DID NOT TOLERATE. VENT SETTINGS RETURNED TO AC 28, TV 380, PEEP 12 WITH FIO2 INCREASED TO 90% PER DR. KAISER. RT NOTIFIED OF CHANGES.
--- NOTE | 2020-11-12 16:00 | NUR ---
Family meeting held with parents at mom, Summer's request for approx one hour. We reviewed pt's AD and family/sibling input, life review, quality of life prior to pt's current acute resp failure. Mom reports that Jw has a very low tolerance of frustration and was already very angry and frustrated with changes to his health and body after going thru chemotherapy for testicular cancer this Winter. She verbalized an enormous feeling of guilt with either decision she makes. Jw's father verbalized that Jw was extremely unhappy, miserable, drinking heavily the last few years while living with them. No one in the family felt he would have the desire, motivation or tolerance that a prolonged rehab stay would require. uSmmer attempted to say several times what their decision was but finally said, "I can't say it out loud". I asked her if she wanted me to say what she was trying to say and she could tell me if I was correct. I asked if they had decided against a peg tube and trach at this time. Both parents noded yes. I asked if they wanted him to transition to comfort care and withdrawal of life support and they said yes. They had already asked what would happen when if transitioned to comfort care. Their many questions were answered and they were allowed to express their thoughts and recounting of life review, their process of thinking and weighing the burdens for their son. Both were appropriately tearful and deeply pained over this decision that they never anticipated having to make. They confirmed that they wanted their son removed from the ventilator and medicated for comfort. I gave Jw's parents privacy and offered activity aide support. Dad declined activity aide support. Summer had spoken with our Manager Banking previously and felt comforted by that and by chance Manager Bankingjulio Whitfield met us as we were going in to ICU and followed her in for additional support. I spoke with pt's nurses and Dr in ICU to convey the parents' wishes. Parents were offered time for any other family members to visit or for them to be with Jw as long as they would like to. Dad initially did not want to go in. Mom wanted to visit and knew she could remain nearby and return after ventilator was d/c'd. Parents stated no other family would be coming to visit.
--- NOTE | 2020-11-12 17:05 | NUR ---
DECISION FOR COMFORT CARE PT. MOTHER AT BEDSIDE WITH PALLIATIVE CARE. AT THIS TIME FAMILY MADE THE DECISION TO WITHDRAW CARE AND CHANGE PT TO COMOFORT CARE. DR. KAISER NOTIFIED. PLANS FOR EXTUBATION TO COMFORT CARE THIS PM.
--- NOTE | 2020-11-12 17:27 | NUR ---
PT EXTUBATED AT THIS TIME. MEDICATED WITH ATIVAN AND MORPHINE UPON EXTUBATION PER ORDER. TO FOLLOW COMFORT CARE ORDER SET AND MEDICATE NEEDED. PT FAMILY UPDATED.
--- NOTE | 2020-11-12 17:55 | NUR ---
PT EXTUBATED TO COMFORT, ETT DEEP SX PERFORMED WITH LAVAGE FOR COPIOUS THICK PALE YELLOW, DEEP ORAL SX PERFORMED. PT EXTUBATED AT 1727 WITHOUT ISSUE.
--- NOTE | 2020-11-12 18:25 | NUR ---
TOD 181 FAMILY REMAINED AT BEDSIDE UNTIL TOD. DISCUSSING HOME ARRANGEMENTS AT THIS TIME.
--- NOTE | 2020-11-12 18:39 | NUR ---
Spiritual care note: Present with Mom, Summer, throughout the day. Stayed with Deandre throughout extubation. Summer and Bartolome arrived and Luiseliseo passed peacefully about 30 minutes later. Both tearful, but appropriate. Several prayers provided at Summer's request. Parents responded well to gentle end-of-life education, bereavement residential youth counselor, and guidance. They have selected [facility] for arrangements. Provided my contact information for future grief residential youth counselor.
== END 2020-11-12 18:17 | DRG 207 ==
LOC: ER 10:30 → MEDS 14:09 → ICUE 14:09 → MEDS 15:19 → ICUE 20:50
PROVIDERS: Emergency Medicine; Internal Medicine Critical Care Medicine; Internal Medicine Pulmonary Disease; Nurse Practitioner Acute Care; ADMIT Internal Medicine
PROC: 30233N1 Transfusion of Nonautologous Red Blood Cells into Peripheral Vein, Percutaneous Approach (ICD-10-PCS; principal; 2020-10-24)
PROC: XW033E5 Introduction of Remdesivir Anti-infective into Peripheral Vein, Percutaneous Approach, New Technology Group 5 (ICD-10-PCS; 2020-10-25)
PROC: 5A1955Z Respiratory Ventilation, Greater than 96 Consecutive Hours (ICD-10-PCS; 2020-10-26)
PROC: 5A09357 Assistance with Respiratory Ventilation, Less than 24 Consecutive Hours, Continuous Positive Airway Pressure (ICD-10-PCS; 2020-10-26)
PROC: 0B9H8ZX Drainage of Lung Lingula, Via Natural or Artificial Opening Endoscopic, Diagnostic (ICD-10-PCS; 2020-10-26)
PROC: 0B9D8ZX Drainage of Right Middle Lung Lobe, Via Natural or Artificial Opening Endoscopic, Diagnostic (ICD-10-PCS; 2020-10-26)
PROC: 0BH18EZ Insertion of Endotracheal Airway into Trachea, Via Natural or Artificial Opening Endoscopic (ICD-10-PCS; 2020-10-26)
PROC: 03HB33Z Insertion of Infusion Device into Right Radial Artery, Percutaneous Approach (ICD-10-PCS; 2020-11-04)
DX: J16.8 Pneumonia due to other specified infectious organisms (principal); J96.01 Acute respiratory failure with hypoxia; E44.0 Moderate protein-calorie malnutrition; Z87.891 Personal history of nicotine dependence; Z86.718 Personal history of other venous thrombosis and embolism; C62.90 Malignant neoplasm of unspecified testis, unspecified whether descended or undescended; Z66 Do not resuscitate; I48.0 Paroxysmal atrial fibrillation; Z78.1 Physical restraint status; Z51.5 Encounter for palliative care; Z68.31 Body mass index [BMI] 31.0-31.9, adult; D63.0 Anemia in neoplastic disease
CPT/HCPCS: 0241U; 31500; 31720; 36415; 36430; 36600; 36620; 71045; 71250; 71260; 80048; 80053; 80069; 80202; 81001; 82330; 82728; 82803; 82947; 83540; 83550; 83605; 83735; 83880; 84100; 84132; 84484; 85014; 85018; 85025; 86850; 86900; 86901; 86923; 87040; 87070; 87102; 87106; 87205; 87324; 87493; 88108; 88312; 93005; 93010; 93306; 94002; 94003; 94640; 94660; 94667; 94668; 94762; 96365; 99285-25; A9270; C1751; C9113; J0282; J0330; J0360; J0692; J1100; J1940; J2060; J2270; J2370; J2543; J2704; J2920; J2930; J3010; J3370; J3465; J3475; J3480; J7030; J7040; J7050; J7060; J7120; J7512; P9016; Q9967; U0003